=== PATIENT | male | born 1965 | race Caucasian/White ===

== ENCOUNTER → 2019-11-27 11:09 | Outpatient (BNVA) | payer MEDICAID, SELFPAY | PROVIDERS: Family Provider Nurse Practitioner Family; PCP Nurse Practitioner Family; Visit Provider Nurse Practitioner Family | DX: E11.65 Type 2 diabetes mellitus with hyperglycemia (principal); E78.2 Mixed hyperlipidemia; I10 Essential (primary) hypertension; E11.40 Type 2 diabetes mellitus with diabetic neuropathy, unspecified | CPT/HCPCS: 80061; 80069; 82044; 83036 ==

== ENCOUNTER 2019-12-19 10:49 | Outpatient (CLI) | payer OTHER, SELFPAY ==
--- NOTE | 2019-12-19 11:01 | XR_ITS ---
WS: [id number] LUMBAR SPINE: 3 VIEWS TECHNIQUE: AP, lateral and L5-S1 spot. HISTORY: BACK PAIN COMPARISON: 09/01/2016 Normal posterior alignment. Bridging anterior osteophytes at the thoracolumbar junction. Additional i ncomplete bridging of osteophytes in the lower lumbar spine with facet arthropathy. No fracture. Pedi cles are all identified. No loss of disc space or vertebral body height. Mild bilateral SI joint sclerosis and narrowing. XR/XR lumbar spine 2-3V* [id number] IMPRESSION: 1. No lumbar spine fracture. 2. Multilevel bridging an incomplete bridging osteophytes in the lower thoraci c and lumbar spine as above. 3. Facet joint arthropathy most significant at L4-5 and L5-S1. 4. Mild progression of degenerative changes since 09/01/2016.
== END 2019-12-19 10:50 | disposition home or self-care (01) ==
LOC: RAD 10:55
PROVIDERS: Family Provider Nurse Practitioner Family; PCP Nurse Practitioner Family; Visit Provider Dermatology
DX: Z02.71 Encounter for disability determination (principal); M47.896 Other spondylosis, lumbar region; M25.78 Osteophyte, vertebrae
CPT/HCPCS: 72100

== ENCOUNTER → 2020-05-27 11:11 | Outpatient (BNVA) | payer MEDICAID, SELFPAY | PROVIDERS: Family Provider Nurse Practitioner Family; PCP Nurse Practitioner Family; Visit Provider Nurse Practitioner Family | DX: I10 Essential (primary) hypertension (principal); E11.40 Type 2 diabetes mellitus with diabetic neuropathy, unspecified; E78.2 Mixed hyperlipidemia; E11.65 Type 2 diabetes mellitus with hyperglycemia | CPT/HCPCS: 80053; 80061; 82043; 83036 ==

== ENCOUNTER → 2020-10-01 11:21 | Outpatient (BNVA) | payer MEDICAID, SELFPAY | PROVIDERS: Family Provider Nurse Practitioner Family; PCP Nurse Practitioner Family; Visit Provider Nurse Practitioner Family | DX: E78.2 Mixed hyperlipidemia (principal); I10 Essential (primary) hypertension; E11.65 Type 2 diabetes mellitus with hyperglycemia; E11.40 Type 2 diabetes mellitus with diabetic neuropathy, unspecified | CPT/HCPCS: 80053; 80061; 83036 ==

== ENCOUNTER 2020-10-06 11:56 | Outpatient (CLI) | payer MEDICAID, SELFPAY ==
[2020-10-06 12:55] LABS: Albumin Level 4.2 g/dL (3.5-5.2); Anion Gap 16.2 (5-19); Blood Urea Nitrogen 9 mg/dL (6-20); Calcium 9.6 mg/dL (8.5-10.5); Carbon Dioxide 26 mmol/L (22-29); Chloride 99 mmol/L (98-107); Glucose 271 mg/dL (65-115); Potassium 4.2 mmol/L (3.5-5.1); Sodium 137 mmol/L (136-145)
[2020-10-06 13:41] LABS: Creatinine Urine, Random 94 mg/dL (39-259); Microalbumin Random Urine 34 ug/dL (0-20)
[2020-10-06 13:52] LABS: Microalbum Creatinine Ratio Ur 362 mg/dL (0-20)
== END 2020-10-06 11:57 | disposition home or self-care (01) ==
PROVIDERS: PCP Nurse Practitioner Family; Visit Provider Internal Medicine Nephrology
DX: N18.2 Chronic kidney disease, stage 2 (mild) (principal)
CPT/HCPCS: 36415; 80069; 82044

== ENCOUNTER → 2020-10-13 14:10 | Outpatient (BNVA) | payer MEDICAID, SELFPAY | PROVIDERS: PCP Nurse Practitioner Family; Visit Provider Nurse Practitioner Family | DX: F32.9 Major depressive disorder, single episode, unspecified (principal); E11.65 Type 2 diabetes mellitus with hyperglycemia | CPT/HCPCS: 36416; 82962 ==

== ENCOUNTER 2020-12-16 13:43 | Outpatient (CLI) | payer MEDICAID, SELFPAY ==
--- NOTE | 2020-12-16 13:50 | XR_ITS ---
WS: [id number] Exam: XR shoulder RT min 2V* [id number] Date/Time of Exam: 12/16/2020 1:50 PM Reason For Exam: M25.511 - Pain in right shoulder No acute fracture or dislocation. Soft tissue calcification along the humeral head may indicate calci fic tendinitis or bursitis. DJD at the AC joint. XR/XR shoulder RT min 2V* [id number] IMPRESSION: 1. Degenerative changes of the glenohumeral joint and the AC joint. No fracture . 2. Soft tissue calcification along the humeral head that might be seen with nathaly cific tendinitis or bursitis.
== END 2020-12-16 13:44 | disposition home or self-care (01) ==
LOC: RAD 13:44
PROVIDERS: PCP Nurse Practitioner Family; Visit Provider Nurse Practitioner Family
DX: M25.511 Pain in right shoulder (principal)
CPT/HCPCS: 73030

== ENCOUNTER → 2021-01-07 11:08 | Outpatient (BNVA) | payer MEDICAID, SELFPAY | PROVIDERS: PCP Nurse Practitioner Family; Visit Provider Nurse Practitioner Family | DX: E11.65 Type 2 diabetes mellitus with hyperglycemia (principal); Z79.899 Other long term (current) drug therapy; E78.2 Mixed hyperlipidemia; I10 Essential (primary) hypertension | CPT/HCPCS: 80053; 80061; 83036 ==

== ENCOUNTER 2021-01-16 06:49 | Outpatient (CLI) | payer MEDICAID, SELFPAY ==
--- NOTE | 2021-01-16 07:15 | MR_ITS ---
WS: [id number] MRI RIGHT SHOULDER HISTORY: M25.511 - Pain in right shoulder COMPARISON: Shoulder radiograph 12/16/2020 TECHNIQUE: Multiplanar sequences of the shoulder joint are submitted. Moderate to severe hypertrophy of the AC joint. Soft tissue and bony encroachment upon the supraspina tus tendon and muscle. Deformity and edema within the supraspinatus muscle secondary to the encroachm ent. Erosions involving the distal clavicle and adjacent acromion. No os acromion. Increased T2 signa l in the biceps tendon at the bicipital groove consistent with a tear. There is no displacement. Mildly high riding humeral head. Mild narrowing of the glenohumeral joint with partial loss of the ca rtilage over the humeral head. Insertion site tear of the distal supraspinatus tendon measures 9 mm through the inferior articular s urface.. Tear is closely associated with the interdigitation between the infraspinatus tendon and may overlap between the tendons. No muscle atrophy or edema. No additional tears are identified. Small a mount of fluid in the subacromial subdeltoid bursa. No labral tears. There is a very small amount of fluid in the rotator cuff interval MR/MR shoulder RT wo con* [id number] IMPRESSION: 1. Moderate to severe AC joint arthritis with significant encroachment upon th e supraspinatus tendon and muscle. There is increased edema with deformity of t he supraspinatus muscle and tendon at the level of the glenoid. 2. Moderate insertion site tear supraspinatus tendon which may overlap with th e infraspinatus tendon. No tendon retraction or muscle atrophy. 3. Small amount of fluid in the rotator cuff interval. 4. Minimal biceps tendon tear of the bicipital groove.
== END 2021-01-16 06:50 | disposition home or self-care (01) ==
LOC: RADSHAW 06:53
PROVIDERS: PCP Nurse Practitioner Family; Visit Provider Nurse Practitioner Family
DX: M25.511 Pain in right shoulder (principal); M75.101 Unspecified rotator cuff tear or rupture of right shoulder, not specified as traumatic; M13.811 Other specified arthritis, right shoulder
CPT/HCPCS: 73221

== ENCOUNTER → 2021-05-25 10:56 | Outpatient (BNVA) | payer MEDICAID, SELFPAY | PROVIDERS: PCP Nurse Practitioner Family; Visit Provider Nurse Practitioner Family | DX: E11.65 Type 2 diabetes mellitus with hyperglycemia (principal); I10 Essential (primary) hypertension; E78.2 Mixed hyperlipidemia | CPT/HCPCS: 80053; 80061; 82043; 82550; 83036; 83721 ==

== ENCOUNTER → 2022-01-20 13:29 | Outpatient (BNVA) | payer MEDICAID, SELFPAY | PROVIDERS: PCP Nurse Practitioner Family; Visit Provider Internal Medicine Pulmonary Disease | DX: J18.9 Pneumonia, unspecified organism (principal); R06.09 Other forms of dyspnea; R42 Dizziness and giddiness; U09.9 Post COVID-19 condition, unspecified; Z87.891 Personal history of nicotine dependence; I10 Essential (primary) hypertension; E78.5 Hyperlipidemia, unspecified | CPT/HCPCS: 99204 ==

== ENCOUNTER → 2022-01-25 14:09 | Outpatient (BNVA) | payer MEDICAID, SELFPAY | PROVIDERS: PCP Nurse Practitioner Family; Visit Provider Internal Medicine Cardiovascular Disease | DX: R42 Dizziness and giddiness (principal); R06.02 Shortness of breath; R00.0 Tachycardia, unspecified | CPT/HCPCS: 93246 ==

== ENCOUNTER 2022-01-25 14:59 | Outpatient (CLI) | payer MEDICAID, SELFPAY ==
--- NOTE | 2022-01-25 15:20 | XR_ITS ---
WS: [id number] XR chest 2V* [id number] REASON FOR EXAM: PNEUMONIA FINDINGS: Compared to the previous examination to 2021, the coarse reticular interstitial lung opacities torin ng the periphery of both lung singh have essentially resolved. No new findings or other interval change noted. XR/XR chest 2V* [id number] IMPRESSION: Resolution of previously radiographically defined pneumonitis.
== END 2022-01-25 15:00 | disposition home or self-care (01) ==
PROVIDERS: Referring Provider Internal Medicine Cardiovascular Disease; Visit Provider Internal Medicine Pulmonary Disease
DX: J18.9 Pneumonia, unspecified organism (principal)
CPT/HCPCS: 36415; 71046; 80053; 85025

== ENCOUNTER 2022-02-01 13:17 | Observation (INO) | payer MEDICAID, SELFPAY ==
[2022-02-01] VITALS (8 sets, daily range): BP systolic 148–181; BP diastolic 90–118; PULSE 69–83; RESP 14–20; TEMP 36.6; O2SAT 94–96; BMI 34.4
--- NOTE | 2022-02-01 13:18 | XRR_ITS ---
PROCEDURE INFORMATION: Exam: XR Chest Exam date and time: 02/01/2022 1:47 PM Age: 57 years old Clinical indication: Angina pectoris; Patient HX: Chest pain for quite some time. PT was unable to tell me how long this episode has been. HX of copd TECHNIQUE: Imaging protocol: XR of the chest. Views: 1 view. COMPARISON: CR XR chest 2V* [id number] 01/25/2022 3:41 PM FINDINGS: Lungs: Unremarkable. No consolidation. Pleural spaces: Unremarkable. No pleural effusion. No pneumothorax. Heart/Mediastinum: Unremarkable. No cardiomegaly. Bones/joints: Unremarkable. XR/XR chest 1V portable [id number] IMPRESSION: No acute findings.
--- NOTE | 2022-02-01 13:19 | ECG_ITS ---
[facility] Test Date: 2022-02-01 Pat Name: Tab Duke Department: Room: Gender: Male Transmitter Chief: : 1965 Requested By: Raine Chester Order Number: [id number] Ashley MD: Lj Yao M.D. Measurements Intervals [place] Rate: 82 P: 75 NV: 180 QRS: 54 QRSD: 100 T: 78 QT: 359 QTc: 422 Interpretive Statements SINUS RHYTHM Compared to ECG 12/28/2018 12:30:36 No significant changes Electronically Signed On 02-01-2022 22:59:32 CDT by Lj Yao M.D. [email or web address]/store/Om/[id number]
--- NOTE | 2022-02-01 13:36 | W.ED.GENADLT ---
HPI - General Adult General: Chief complaint: Chest Pain Stated complaint: dizziness / chest pain Time Seen by Provider: 02/01/22 13:31 History of Present Illness: CC: Chest Pain HPI: This is a [57] yo patient hx of HTN, DM, smoking presenting to the ED w/ acute onset intermittent substernal chest pain x 9 hrs at home. He reports around 430 this morning, he began experiencing dull pressure-like chest pain with associated with diaphoresis. Patient states this episode of chest pain last for 10 to 15 minutes. Patient still complains of pressure-like chest pain with radiation to the left lateral rib. pain is not tearing in nature and does not radiate to the back. Endorse nausea but has no associated with vomiting or decreased PO intake. Denies any recent sympathomimetic drug use. Patient denies any cough. Denies palpitations, syncope symptoms. Pain not positional. Norecent immobility, surgery, unilateral leg swelling, or prior PE. Patient denies any orthopnea, paroxysmal nocturnal dyspnea, weight gain, or increased leg swellings. Onset: 9 hrs ago Duration: ongoing for the last 9 hours Location: home Severity: moderate Associated symptoms: Reports chest pain; Deny dyspnea, nausea, rash, palpitations or vomiting Review of Systems Const: Denies: fever(s) or chills Eyes: Denies: change in vision ENMT: Denies: mouth pain Card: Reports: chest pain; Denies: palpitations Resp: Denies: dyspnea or non-productive cough GI: Denies: abdominal pain, nausea, vomiting or diarrhea : Denies: dysuria Musc: Denies: extremity pain Skin/Breast: Denies: rash or new lesions Neuro: Denies: weakness in extremities Psych: Reports: other (Normal mood) Americo/Lymph: Denies: easy bruising PFSH ED PFSH: Medical History Depression DM neuropathy, painful DM w/o complication type II, uncontrolled HTN (hypertension), benign Hyperlipemia, mixed Psychiatric care Social History Smoking and tobacco status: former smoker Quit status (tobacco): has quit using tobacco Year quit tobacco: Former quit date comment: 1ppd x 2 years Physical Exam Const: COMMON NORMALS: alert HENMT: COMMON NORMALS: atraumatic HEAD & SCALP: atraumatic MOUTH: moist mucous membranes not abnormal Eye: COMMON NORMALS: EOMs intact bilaterally and conjunctivae normal CONJUNCTIVA: Yes conjunctivae normal Neck/C-Spine: COMMON NORMALS: full ROM and supple Resp: COMMON NORMALS: normal respiratory effort and clear to auscultation bilaterally AUSCULTATION: clear to auscultation bilaterally Cardio: COMMON NORMALS: regular rate RATE: regular rate OTHER: 2+ radial pulses b/l GI: COMMON NORMALS: Soft to palpation and non-tender PALPATION: Yes Soft to palpation Extremity: COMMON NORMALS: full ROM Neuro: SENSORIUM/ORIENTATION: Yes alert MOTOR EXAM: No Abnormal motor strength present and Other motor observations present (no focal motor deficits) Psych: COMMON NORMALS: speech normal SPEECH: Yes normal speech MOOD & AFFECT: Yes euthymic mood Course Vital Signs: Vital signs: Vital Signs Temperature 97.8 F 02/01/22 13:23 Pulse Rate 81 02/01/22 14:17 Respiratory Rate 14 02/01/22 14:17 Blood Pressure 164/104 02/01/22 14:17 Pulse Oximetry 96 02/01/22 14:17 MDM - General Adult Medical Decision Making [57]yo patient w/ hx of DM, HTN, smoking presenting to the ED With acute substernal chest pain X 9 hrs. Currently mild chest pain. Given History And Exam today I have moderate to high suspicion for ACS/UA/NSTEMI. Today, I have NO suspicion for pneumothorax, pneumonia, pulmonary embolus, tamponade, aortic dissection or other emergent problem as a cause for this presentation. ECG did not show any signs of acute STEMI. Workup: ECG x 2 , CXR, CBC, BMP, Troponin x 2 Intervention: ASA 325mg, SL nitroglycerin, morphine Findings: ECG: No overt evidence of STEMI, nohyperacute T waves, localizable STD or T wave inversions. No evidence of Brugada?s sign, delta wave, epsilon wave, significantly prolonged QTc, or malignant arrhythmia. No Q waves. Troponin: 25 Other Labs unremarkable for emergent problems. CXR: Without PTX, PNA, or widened mediastinum HEART score: 5 Dimer wml [3:30pm] On reassessment, the patient is currently chest pain free. S/p aspirin 325mg. Will defer antiplatelet and anticoagulation to the inpatient team. Pending repeat troponin. HDS, AAOx3, no signs of respiratory distress, without refractory chest pain, no signs of malignant dysrhythmia on alarm security or surveillance monitor (VT/VF). Disposition: Inpatient admission. Lab Data : 02/01/22 14:00 02/01/22 14:00 Radiology Impressions Chest X-Ray 02/01/22 13:18 IMPRESSION: No acute findings. Laboratory Results WBC 8.3 10^3/uL (4.0-10.0) 02/01/22 14:00 RBC 4.78 10^6/uL (4.1-5.3) 02/01/22 14:00 Hgb 13.8 g/dL (11.7-16.6) 02/01/22 14:00 Hct 41.5 % (42.0-52.0) L 02/01/22 14:00 MCV 86.8 fl (80-94) 02/01/22 14:00 MCH 28.9 pg (28.0-34.0) 02/01/22 14:00 MCHC 33.3 g/dL (30.0-36.0) 02/01/22 14:00 RDW 13.4 % (12.1-15.1) 02/01/22 14:00 Plt Count 224 10^3/cmm (130-400) 02/01/22 14:00 MPV 10.6 fL (7.4-10.4) H 02/01/22 14:00 Neut % (Auto) 60.5 % 02/01/22 14:00 Lymph % (Auto) 30.3 % 02/01/22 14:00 [place] % (Auto) 7.6 % 02/01/22 14:00 Eos % (Auto) 1.0 % 02/01/22 14:00 Baso % (Auto) 0.4 % 02/01/22 14:00 Neut # (Auto) 5.00 10^3/uL (1.8-7.7) 02/01/22 14:00 Lymph # (Auto) 2.5 10^3/uL (0.8-4.8) 02/01/22 14:00 [place] # (Auto) 0.6 10^3/uL (0.2-0.9) 02/01/22 14:00 Eos # (Auto) 0.1 10^3/uL (0.0-0.8) 02/01/22 14:00 Baso # (Auto) 0.0 10^3/uL (0.0-0.1) 02/01/22 14:00 Nucleated RBC % (auto) 0 % 02/01/22 14:00 Nucleated RBCs # 0.0 /100WBC 02/01/22 14:00 D-Dimer 0.31 ug/mIFEU (0-0.59) 02/01/22 14:00 Sodium 137 mmol/L (136-145) 02/01/22 14:00 Potassium 3.7 mmol/L (3.5-5.1) 02/01/22 14:00 Chloride 99 mmol/L (98-107) 02/01/22 14:00 Carbon Dioxide 26 mmol/L (22-29) 02/01/22 14:00 Anion Gap 15.7 (5-19) 02/01/22 14:00 BUN 14 mg/dL (6-20) 02/01/22 14:00 Creatinine 0.7 mg/dL (0.7-1.2) 02/01/22 14:00 GFR Calculation 117.1 mL/min (90-130) 02/01/22 14:00 Glucose 266 mg/dL (65-115) H 02/01/22 14:00 Calculated Osmolality 294 mOsm/kg (285-295) 02/01/22 14:00 Calcium 9.9 mg/dL (8.5-10.5) 02/01/22 14:00 Troponin T Baseline 24 ng/L (0-15) H 02/01/22 14:00 Imaging Data Other Imaging: Radiologist's impression: [facility] [address] [place] [address] XRay Report Signed Patient: Tab Duke Unit #: [id number] : 1965 Age/Sex: 57 / M ADM Date: 02/01/22 Loc: ER Room/Bed: Attending Dr: Ordering Provider/Ordering MD: Raine Chester MD Date of Service: 02/01/22 Procedure(s): XR chest 1V portable [id number] Accession Number(s): [id number] Report Number: [id number] PROCEDURE INFORMATION: Exam: XR Chest Exam date and time: 02/01/2022 1:47 PM Age: 57 years old Clinical indication: Angina pectoris; Patient HX: Chest pain for quite some time. PT was unable to tell me how long this episode has been. HX of copd TECHNIQUE: Imaging protocol: XR of the chest. Views: 1 view. COMPARISON: CR XR chest 2V* [id number] 01/25/2022 3:41 PM FINDINGS: Lungs: Unremarkable. No consolidation. Pleural spaces: Unremarkable. No pleural effusion. No pneumothorax. Heart/Mediastinum: Unremarkable. No cardiomegaly. Bones/joints: Unremarkable. XR/XR chest 1V portable [id number] IMPRESSION: No acute findings. ? Dictated By: Varghese Woodruff Signed By: Varghese Woodruff Signed Date/Time: 02/01/22 1409 DD/ 1347 Discharge Plan Discharge Condition: Stable Prescriptions: No Action (DME) pen needle, diabetic [Comfort EZ Pen [place]] 29 gauge x 1/2 needle See Rx Instructions .Route Qty: 100 1RF Rx Instructions: As directed albuterol sulfate [ProAir HFA] 90 mcg/actuation HFA aerosol inhaler 2 puff inhalation Q6H PRN (Reason: shortness of breath or wheezing) Qty: 6.7 0RF metformin 500 mg tablet 500 mg PO DAILY@12 0RF glipizide 5 mg tablet extended release 24 hr 5 mg PO QAM 0RF gabapentin 800 mg tablet 800 mg PO BID 0RF amlodipine 10 mg tablet 10 mg PO QAM 0RF metformin 1,000 mg tablet 1,000 mg PO BID 0RF Rx Instructions: am and pm lisinopril 40 mg tablet 40 mg PO QAM 0RF Lantus Solostar U-100 Insulin 100 unit/mL (3 mL) insulin pen 40 unit SUBCUT BEDTIME 0RF simvastatin 20 mg tablet 20 mg PO BEDTIME 0RF ropinirole 4 mg tablet 8 mg PO BEDTIME 0RF quetiapine 50 mg tablet 50 mg PO BEDTIME 0RF venlafaxine 75 mg capsule,extended release 24hr 75 mg PO BEDTIME 0RF metoprolol tartrate 100 mg tablet 100 mg PO QAM 0RF Victoza 2-Matthew 0.6 mg/0.1 mL (18 mg/3 mL) pen injector 1.2 mg SUBCUT BEDTIME 0RF Coding Level of Care Code ED Director Of Primary Care for Chg Fwd Exam Comprehensive
[2022-02-01] MEDS: aspirin 325 mg Tablet PO (14:15)
[2022-02-01 14:17] LABS: Basophils % 0.4 %; Eosinophils # 0.1 10^3/uL (0.0-0.8); Hematocrit 41.5 % (42.0-52.0); Hemoglobin 13.8 g/dL (11.7-16.6); Lymphocytes # 2.5 10^3/uL (0.8-4.8); Lymphocytes % 30.3 %; Mean Corpuscular HGB Conc 33.3 g/dL (30.0-36.0); Mean Corpuscular Hemoglobin 28.9 pg (28.0-34.0); Mean Corpuscular Volume 86.8 fl (80-94); Mean Platelet Volume 10.6 fL (7.4-10.4); Monocytes # 0.6 10^3/uL (0.2-0.9); Monocytes % 7.6 %; Neutrophils % 60.5 %; Nucleated Red Blood Cells % 0 %; Platelet Count 224 10^3/cmm (130-400); Red Blood Count 4.78 10^6/uL (4.1-5.3); Red Cell Distribution Width 13.4 % (12.1-15.1); White Blood Count 8.3 10^3/uL (4.0-10.0)
[2022-02-01 14:35] LABS: D Dimer 0.31 ug/mIFEU (0-0.59)
[2022-02-01 14:45] LABS: Troponin(5th) Baseline 24 ng/L (0-15)
[2022-02-01 14:48] LABS: Anion Gap 15.7 (5-19); Blood Urea Nitrogen 14 mg/dL (6-20); Calcium 9.9 mg/dL (8.5-10.5); Carbon Dioxide 26 mmol/L (22-29); Chloride 99 mmol/L (98-107); Glomerular Filtration Rate 117.1 mL/min (90-130); Glucose 266 mg/dL (65-115); Osmolality Calculated 294 mOsm/kg (285-295); Potassium 3.7 mmol/L (3.5-5.1); Sodium 137 mmol/L (136-145)
--- NOTE | 2022-02-01 15:19 | ECG_ITS ---
[facility] Test Date: 2022-02-01 Pat Name: Tab Duke Department: Room: Gender: Male Window Framer: : 1965 Requested By: Raine Chester Order Number: [id number] Ashley MD: Lj Yao M.D. Measurements Intervals [place] Rate: 67 P: 71 [place]: 216 QRS: 46 QRSD: 93 T: 89 QT: 392 QTc: 415 Interpretive Statements SINUS RHYTHM WITH FIRST DEGREE AV BLOCK Compared to ECG 02/01/2022 13:27:25 First degree AV block now present Electronically Signed On 02-01-2022 23:21:06 CDT by Lj Yao M.D. [email or web address]/store/OM/[id number]
--- NOTE | 2022-02-01 15:40 | PC.NURSE ---
Pulled morphine from [employer] and wasted. Prior to administration, pt refused medication. Reported to Rashel in pharmacy. Rashel instructed to wasted other half of vial in [employer]. Full vial returned to Rashel in pharmacy.
--- NOTE | 2022-02-01 16:47 | PC.NURSE ---
Pt was rx's morphine. Morphine was wasted in pyxis before administration. Pt then refused morphine. Remaining 2mg were wasted in pyxis per Rashel. Full vial was returned to pharmacy and given to Rashel.
[2022-02-01 16:56] LABS: Troponin 5 2HR 20.85 ng/L (0-15)
[2022-02-01 17:02] LABS: Troponin 5 2HR Delta -3.15 ABS# (0-10)
--- NOTE | 2022-02-01 17:16 | P.HP_ITS ---
Providers/Chief Complaint Admitting Physician: Kalin Ceja Chief Complaint: dizziness / chest pain History of Present Illness Pleasant 57-year-old gentleman with postcode chronic dyspnea, CARL, has been intolerant of CPAP, uses chronic oxygen 1 L around the clock, with intermittent episodes of blackouts , with reported history of skipped beats, was referred for 7-day Holter by pulmonology additionally with plans for PFT, CT chest, cardiology assessment. Presents to ER today due to chest tightness. Reports he has been having dry cough. This morning reports he also had chills and sweats. Occasional sharp pain on the left side of the chest with tightness mostly in the center. Sharp chest pain with some pleuritic component, worse with deep breaths. Some pleuritic worsening with tightness as well. Reports not related to activity, could appear when he is sitting down. Reports dyspnea on exertion. Denies orthopnea, although does not sleep on his back due to back problems. Denies productive cough or hemoptysis. His blood pressure has been elevated. Currently he has no sharp pain, some mild tightness persists. His EKG was unremarkable in ER, as was first troponin with mild elevation 24. 2-hour troponin coming back at 20.85. Chest x-ray without acute findings. D-dimer 0.31. He is afebrile, without leukocytosis. NB he also reports Raynaud's-like symptoms with his hands turning pale or feet purple when exposed to cold. Review of Systems Const: Denies: fever(s), chills, body aches or malaise Eyes: Denies: change in vision, eye discomfort or eye redness ENMT: Denies: throat pain, oral sores or ear or mastoid pain Card: Reports: chest pain and edema (mild occasional); Denies: pre-syncope or dyspnea on exertion Resp: Reports: non-productive cough and pain on inspiration; Denies: dyspnea, productive cough, change in phlegm color or hemoptysis GI: Denies: abdominal pain, nausea, vomiting, diarrhea, constipation, hematochezia or melena : Denies: flank pain, difficulty urinating, urinary frequency or hematuria Musc: Reports: back pain; Denies: joint swelling or joint redness Skin/Breast: Denies: rash or new lesions Neuro: Denies: headache(s), numbness in extremities, weakness in extremities, dizziness, confusion or seizure-like activity Endo: Denies: polyuria or polydipsia Americo/Lymph: Denies: easy bleeding or tender lymph nodes All/Imm: Denies: urticaria or tongue swelling Medications/Allergies Home Medications Medication Instructions Recorded Confirmed Last Taken Type albuterol sulfate 90 mcg/actuation 2 puff INHALATION Q6H PRN #6.7 g 05/25/21 02/01/22 Unknown Rx aerosol inhaler (ProAir HFA) pen needle, diabetic 29 gauge x #100 ea 05/25/21 02/01/22 Unknown Rx 1/2 (Comfort EZ Pen [place]) amlodipine 10 mg tablet 10 mg PO QAM 02/01/22 02/01/22 02/01/22 11:30 History gabapentin 800 mg tablet 800 mg PO BID 02/01/22 02/01/22 02/01/22 11:30 History glipizide 5 mg tablet, extended 5 mg PO QAM 02/01/22 02/01/22 02/01/22 11:30 History release 24 hr insulin glargine 100 unit/mL (3 40 unit SUBCUT BEDTIME 02/01/22 02/01/22 01/31/22 History mL) subcutaneous pen (Lantus Solostar U-100 Insulin) liraglutide 0.6 mg/0.1 mL (18 mg/3 1.2 mg SUBCUT BEDTIME 02/01/22 02/01/22 01/31/22 History mL) subcutaneous pen injector ([id number] 2-Matthew) lisinopril 40 mg tablet 40 mg PO QAM 02/01/22 02/01/22 02/01/22 11:30 History metformin 1,000 mg tablet 1,000 mg PO BID 02/01/22 02/01/22 02/01/22 History 1000 mg metformin 500 mg tablet 500 mg PO DAILY@12 02/01/22 02/01/22 01/31/22 History metoprolol tartrate 100 mg tablet 100 mg PO QAM 02/01/22 02/01/22 02/01/22 History quetiapine 50 mg tablet 50 mg PO BEDTIME 02/01/22 02/01/22 01/31/22 History ropinirole 4 mg tablet 8 mg PO BEDTIME 02/01/22 02/01/2201/31/22 History simvastatin 20 mg tablet 20 mg PO BEDTIME 02/01/22 02/01/22 01/31/22 History venlafaxine 75 mg capsule,extended 75 mg PO BEDTIME 02/01/22 02/01/22 01/31/22 History release 24 hr Allergies Allergy/AdvReac Type Severity Reaction Status Date / Time Penicillins Allergy Mild breaks out Verified 02/01/22 14:30 in rash PFSH Acute PFSH: Medical History Depression DM neuropathy, painful DM w/o complication type II, uncontrolled HTN (hypertension), benign Hyperlipemia, mixed Lupus He reports history of lupus diagnosed by Dr. Cortes, though there is no record of this. Psychiatric care Surgical History History of back surgery Family History Other Lupus Social History Smoking and tobacco status: former smoker Quit status (tobacco): has quit using tobacco Year quit tobacco: Former quit date comment: 1ppd x 2 years Alcohol intake: never Substance/Drug Use: never Vitals/I&O/Wt Last Vital Signs Temp 97.8 F 02/01/22 13:23 Pulse 75 02/01/22 16:49 Resp 16 02/01/22 16:49 BP 151/111 02/01/22 16:49 Pulse Ox 96 02/01/22 16:49 Weight last 48 hrs Weight 99.79 kg Physical Exam Narrative: Accompanied by family. Const: COMMON NORMALS: alert GENERAL APPEARANCE: cooperative NUTRITIONAL APPEARANCE: overweight ORIENTATION/CONSCIOUSNESS: Yes awake HENMT: COMMON NORMALS: normocephalic, EAC's normal, Normal external nose present and moist oral mucous membranes HEAD & SCALP: normocephalic NOSE: Normal external nose present EXTERNAL AUDITORY CANAL: EAC's normal Neck/C-Spine: COMMON NORMALS: no meningeal signs Chest: CHEST: Yes Symmetrical chest wall rise Resp: COMMON NORMALS: clear to auscultation bilaterally AUSCULTATION: clear to auscultation bilaterally Cardio: COMMON NORMALS: regular rate, regular rhythm and No murmurs present (Cardio) RATE: regular rate RHYTHM: regular rhythm GI: COMMON NORMALS: Normal to inspection, nondistended, normoactive bowel so unds present, Soft to palpation and non-tender PALPATION: Yes Soft to pal pation Extremity: COMMON NORMALS: no pedal edema Neuro: COMMON NORMALS: moves all extremities SENSORIUM/ORIENTATION: Yes alert MENINGEAL SIGNS: Yes no meningeal signs Psych: COMMON NORMALS: mental status grossly normal Skin: COMMON NORMALS: no wounds RASHES: no rashes Data : 02/01/22 14:00 02/01/22 14:00 A&P Assessment and plan (1) Chest tightness: Currently still some persistent mild chest tightness in the center, which is a different symptom he describes to the sharper intermittent lasting only couple seconds pain on the left side of his chest, although does state both exacerbated by deep breath. With dry cough. Denies hemoptysis. D-dimer is normal. For his troponin mildly elevated 24, 2-hour troponin XX. Complete troponin EKG trend. He does have risk factors for coronary artery disease. We will additionally assess with echocardiogram. Discussed with him if no worsening of symptoms would then plan for additional a ssessment by stress test tomorrow. Continue ASA, beta-tre, statin. Status: Acute (2) Nonproductive cough: Possibly persistent after Covid, although reports has been coughing more recently. No focal consolidation seen on chest x-ray to suggest bacterial pneumonia. Reports chills, sweats this morning, will obtain COVID-19, influenza swabs. He has no leukocytosis, here afebrile. Monitor vitals. D-dimer is normal. Status: Acute (3) Raynaud's phenomenon: Reports intermittent Raynaud's phenomena. States he was previously diagnosed with lupus by Dr. Cortes, although there is no record of this. Status: Acute (4) HTN (hypertension), benign: Possibly suboptimally controlled hypertension. Monitor blood pressures. Continue amlodipine, lisinopril, metoprolol for now. Status: Acute Plan CARL: Reports intolerant of CPAP. Discussed with him pursuing adjustment of his CPAP machine to see if can be made to tolerated. He states otherwise wears oxygen 1 L 24 hours a day. Protracted dyspnea following Covid: He follows with pulmonology, pending additional assessment. Episodes of blacking out : Reported previously. Underwent 7-day Holter monitor which appears to be pending interpretation. DM2: Continue Lantus, sliding scale while here Consistent carbohydrate diet. Chronic back pain, history of spinal tumor resection HLD Depression Attestations Medical Necessity Statement*: Place in observation for additional assessment of chest pressure and a gentleman with risk factors of CAD Coding Level of Care Code Acute Airport Duty Manager for Chg Fwd Diagnoses Chest tightness R07.89 Nonproductive cough R05.8 Raynaud's phenomenon I73.00 HTN (hypertension), benign I10
--- NOTE | 2022-02-01 17:22 | PC.NURSE ---
Pt was up for discharge. Physician wanted abx before pt was allowed to leave. Physician then ordered 2 more medications, while pt was up for discharge. Nurse administered rx'd medications and discharged pt when complete.
--- NOTE | 2022-02-01 17:50 | USCV_ITS ---
Tab Duke Age: 57 Gender: M : 1965 Exam Date: 02/01/2022 18:56 Ordering Phys: Kalin Ceja MD Technologist: GEE [place] [facility] [place]: Tightness in chest/ Syncope BP: / HR: 74 Rhythm: Sinus Technical Quality: Adequate MEASUREMENTS (Male / Female) Normal Values 2D ECHO LV Diastolic Diameter PLAX 4.0 cm 4.2 - 5.9 / 3.9 - 5.3 cm LV Systolic Diameter PLAX 2.4 cm IVS Diastolic Thickness 1.4 cm 0.6 - 1.0 / 0.6 - 0.9 cm IVS Systolic Thickness 2.5 cm LVPW Diastolic Thickness 2.3 cm 0.6 - 1.0 / 0.6 - 0.9 cm LVPW Systolic Thickness 2.9 cm LVOT Diameter 3.1 cm LV Ejection Fraction 2D Teich 61.9 % LV Ejection Fraction MOD 2C 66.3 % LV Ejection Fraction 2C AL 66.0 % LA Diameter 3.7 cm LA Width 3.7 cm LA Height 6.6 cm RA Width 3.6 cm RA Height 5.7 cm Aorta at Sinotubular Diameter 2.4 cm M-MODE Aortic Annulus Diameter 3.1 cm LA Ao Ratio MM 1.4 MV E Point Septal Separation 1.0 cm DOPPLER AV Peak Velocity 126.5 cm/s LVOT Peak Velocity 54.0 cm/s AV Area Cont Eq vti 4.1 cm squared AV Area Cont Eq pk 3.3 cm squared MV Peak Velocity 80.0 cm/s MV Area PHT 3.3 cm squared Mitral E to A Ratio 0.8 MV E' Velocity 31.5 cm/s Mitral E to MV E' Ratio 6.6 Mitral E to LV E' Lateral Ratio 6.6 Mitral E to LV E' Septal Ratio 6.6 TR Peak Velocity 119.3 cm/s TR Peak Gradient 5.7 mmHg TR Mean Velocity 78.0 cm/s TR Mean Gradient 2.9 mmHg TR Velocity Time Integral 22.7 cm Right Atrial Pressure 10.0 mmHg Pulmonary Artery Systolic Pressu 15.7 mmHg PV Peak Velocity 106.0 cm/s RV Acceleration Time 0.1 s RV Ejection Time 0.4 s RV AcT/ET 0.3 FINDINGS Left Ventricle Normal left ventricular size and systolic function, EF 71 %. No regional wall motion abnormalities. Grade I/IV diastolic dysfunction (abnormal relaxation filling pattern), normal to mildly elevated filling pressures. Right Ventricle The right ventricle is normal in size and function. Right Atrium Possibly of normal size Left Atrium The left atrium is normal in size. Mitral Valve Mild mitral annular calcification. Thickened mitral valve. Aortic Valve No gross abnormalities noted Tricuspid Valve No gross abnormalities noted Pulmonic Valve Pulmonic valve not well visualized. Pericardium No pericardial effusion. Aorta Normal ascending aorta dimension. CONCLUSIONS Normal left ventricular size and systolic function, EF 71 %. No regional wall motion abnormalities. Grade I/IV diastolic dysfunction (abnormal relaxation filling pattern), normal to mildly elevated filling pressures. Mild mitral annular calcification. Thickened mitral valve. There is no pericardial effusion. Technically difficult study because of the poor ultrasonic window. No previous study is available for comparison. Dr Lj Yao MD FACC (Electronically Signed) Final Date: 02 February 2022 15:29 S
--- NOTE | 2022-02-01 18:55 | PC.NURSE ---
Patient arrived to floor via wc, AAOx4, VSS, minimal c/o chest tightness, no c/o pain, no skin concerns. States he uses a cane when is back flares up and his leg hurts. Lives with daughter that can help care for him. No new events, no needs at this time, room clean and clutter free with call light in reach.
--- NOTE | 2022-02-01 19:19 | ECG_ITS ---
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 Measurements Intervals Wallace Rate: 72 P: 56 WY: 209 QRS: 29 QRSD: 97 T: 101 QT: 380 QTc: 418 Interpretive Statements SINUS RHYTHM NONSPECIFIC T-WAVE ABNORMALITY Compared to ECG 02/01/2022 16:38:31 T-wave abnormality now present First degree AV block no longer present Electronically Signed On 02-01-2022 23:21:32 CDT by Lj Yao M.D. [id number]
[2022-02-01] MEDS: enoxaparin 40 mg/0.4 mL Syringe SUBCUT (19:32)
[2022-02-01 20:25] LABS: Troponin 5 6HR 22.62 ng/L (0-15)
[2022-02-01 20:26] LABS: Troponin 5 6HR Delta -1.38 ng/L (0-12)
[2022-02-01] MEDS: quetiapine 25 mg Tablet 50 MG PO (20:37)
[2022-02-01] MEDS: ropinirole 2 mg Tablet 8 MG PO (20:37)
[2022-02-01] MEDS: atorvastatin 40 mg Tablet 20 MG PO (20:37)
[2022-02-01] MEDS: venlafaxine ER (24HR) 75 mg Capsule PO (20:37)
[2022-02-01] MEDS: gabapentin 400 mg Capsule 800 MG PO (20:39)
[2022-02-01] MEDS: insulin lispro 100 unit/1 mL SUBCUT (20:49)
[2022-02-01] MEDS: insulin glargine 100 units/1 mL 40 UNIT SUBCUT (21:14)
[2022-02-02] VITALS (13 sets, daily range): BP systolic 125–166; BP diastolic 70–96; PULSE 72–103; RESP 17–18; TEMP 36.6–37.1; O2SAT 93–98
[2022-02-02 03:55] LABS: Influenza A by IFA Negative (Negative); Influenza B by IFA Negative (Negative)
[2022-02-02 05:19] LABS: Adenovirus Not Detected (NOT DETECT); Chlamydia Pneumoniae Not Detected (NOT DETECT); Coronavirus 229E,HKU1,NL63,OC4 Not Detected (NOT DETECT); Human Metapneumovirus Not Detected (NOT DETECT); Human Rhinovirus/Enterovirus Not Detected (NOT DETECT); Influenza A Not Detected (NOT DETECT); Influenza A H1 Not Detected (NOT DETECT); Influenza A H1-2009 Not Detected (NOT DETECT); Influenza A H3 Not Detected (NOT DETECT); Influenza B Not Detected (NOT DETECT); Mycoplasma Pneumoniae Not Detected (NOT DETECT); Parainfluenza Virus Type 1 Not Detected (NOT DETECT); Parainfluenza Virus Type 2 Not Detected (NOT DETECT); Parainfluenza Virus Type 3 Not Detected (NOT DETECT); Parainfluenza Virus Type 4 Not Detected (NOT DETECT); Respiratory Syncytial Virus A Not Detected (NOT DETECT); Respiratory Syncytial Virus B Not Detected (NOT DETECT); SARS-COV-2 Not Detected (NOT DETECT)
[2022-02-02] MEDS: amlodipine 10 mg Tablet PO (06:01)
[2022-02-02] MEDS: lisinopril 20 mg Tablet 40 MG PO (06:01)
[2022-02-02 06:05] LABS: Basophils % 0.2 %; Eosinophils # 0.1 10^3/uL (0.0-0.8); Eosinophils % 1.1 %; Hematocrit 41.4 % (42.0-52.0); Hemoglobin 13.5 g/dL (11.7-16.6); Lymphocytes # 2.8 10^3/uL (0.8-4.8); Lymphocytes % 26.1 %; Mean Corpuscular HGB Conc 32.6 g/dL (30.0-36.0); Mean Corpuscular Hemoglobin 28.6 pg (28.0-34.0); Mean Corpuscular Volume 87.7 fl (80-94); Mean Platelet Volume 10.6 fL (7.4-10.4); Monocytes # 0.6 10^3/uL (0.2-0.9); Neutrophils # 7.05 10^3/uL (1.8-7.7); Neutrophils % 66.1 %; Nucleated Red Blood Cells % 0 %; Platelet Count 218 10^3/cmm (130-400); Red Blood Count 4.72 10^6/uL (4.1-5.3); Red Cell Distribution Width 13.5 % (12.1-15.1); White Blood Count 10.7 10^3/uL (4.0-10.0)
[2022-02-02 06:25] LABS: Anion Gap 13.9 (5-19); Blood Urea Nitrogen 17 mg/dL (6-20); Calcium 9.4 mg/dL (8.5-10.5); Carbon Dioxide 27 mmol/L (22-29); Chloride 102 mmol/L (98-107); Glomerular Filtration Rate 139.9 mL/min (90-130); Glucose 163 mg/dL (65-115); Osmolality Calculated 293 mOsm/kg (285-295); Potassium 3.9 mmol/L (3.5-5.1); Sodium 139 mmol/L (136-145)
[2022-02-02] MEDS: regadenoson 0.4 Mg/5 ml Syringe IVP (07:44)
[2022-02-02 07:57] LABS: Glucose Point of Care 201 mg/dL (70-110)
[2022-02-02 07:58] LABS: Glucose Point of Care 158 mg/dL (70-110)
--- NOTE | 2022-02-02 08:00 | ECG_ITS ---
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 Interpretive Statements NAME OF STUDY: LEXISCAN SESTAMIBI STRESS TEST INDICATION: [chest discomfort, ] Procedure: At the baseline, the blood pressure was 127/84mmHg with a heart rate of 73 bpm. The electrocardiogram showed normal sinus rhythm, normal axis with normal ST and T's. The Lexiscan was infused over a period of 20 seconds. A total of 0.4 mg of Lexiscan was infused. The stress phase was continued for a total of 5 minutes. Heart rate was at the end of stress phase was 94 bpm and a blood pressure of 134/72 mmHg. The EKG at the peak infusion revealed since normal sinus rhythm with no significant ST-T wave changes. Sestamibi was injected 20 seconds after the Lexiscan infusion. Blood pressure at the end of recovery phase was 125/76 mmHg with a heart rate of 94 bpm. Conclusion: 1. Normal EKG response to Lexiscan infusion 2. No Lexiscan induced chest pain or cardiac arrhythmia. 3. Normal blood pressure and heart rate response. 4. Sestamibi/sestamibi perfusion scan pending; see separate report. Electronically Signed On 03-07-2022 21:13:56 CDT by Jhon Perez M.D. [id number]
[2022-02-02] MEDS: gabapentin 400 mg Capsule 800 MG PO (09:36)
[2022-02-02] MEDS: insulin lispro 100 unit/1 mL SUBCUT ×3 (09:36→18:33)
[2022-02-02] MEDS: aspirin 325 mg Tablet PO (09:36)
[2022-02-02] MEDS: doxycycline 100 mg Tablet PO (11:10)
[2022-02-02] MEDS: ipratropium-albuterol 3 mL Neb INHALATION ×2 (11:28→15:03)
--- NOTE | 2022-02-02 16:58 | PM.CONSULT ---
Providers/Reason For Consult Consulting Physician/Specialty*: DAJA Yao MD/cardiology Reason for Consult*: Patient with chest pain and abnormal perfusion scan Requesting Physician: Dr. Ceja Attending Physician: Kalin Ceja History of Present Illness History of Present Illness Tab Duke is a 57 year old male with multiple risk factors for coronary disease, he is admitted to hospital with a an episode of prolonged chest pain. Myocardial infarction was ruled out. He had a myocardial perfusion imaging today which revealed a small area of myocardial scarring with a possible rosalio-infarction ischemia. Cardiology consult is requested for further cardiac evaluation recommendations. This patient apparently had an episode of chest pain, shortness of breath and profuse sweating which woke him up around 4:00 in the morning on the day of admission. The pain was in the mid substernal area. It radiates to the to the left arm and also to the back. He did not have any associated nausea or vomiting. The intensity of the pain was moderate. The profuse sweating lasted for 45 minutes or so. This is followed by a dull aching type of pain in the chest. For the persistence of this symptom, he was brought to the hospital by his daughter. His chest pain gradually subsided. He had no other associated symptoms or radiation of pain. He has no previous history for coronary artery disease, myocardial infarction or congestive heart failure. He has a history of heart murmur He has a longstanding history of diabetes at least the last 10 years. 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 The first episode of seizures in 2016. Second episode was in 2019 and the last one was in October of this year. Does have residual right upper extremity weakness, some speech disturbance and memory problem. The exact etiology of the stroke is not clear at this time. 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 He also is known to have high blood pressure and dyslipidemia. No history for peripheral artery disease, kidney disease or liver disease. No bleeding disorders. He has a longstanding history of COPD and sleep apnea. He is not able to use a CPAP machine . Denies any smoking abuse. Occasional alcohol intake. His mother had a myocardial infarction in her 60s. No other relevant family history. Review of Systems Narrative: CONSTITUTIONAL: No fever or chills. Has been having some amount of dyspnea on exertion. EYES: No blurring of vision or other visual disturbances lately. [] ENT: No hoarseness of voice, auditory disturbances or sore throat. [] CARDIOVASCULAR: As mentioned above. [] RESPIRATORY: No significant cough. [] GASTROINTESTINAL: No hematemesis or melena. [] GENITOURINARY: No dysuria or hematuria. [] INTEGUMENTARY: No skin rashes or history of skin cancer. [] NEURO: No transient ischemic attacks or amaurosis. [] PSYCHIATRIC: No history of psychosis or major depression. [] HEMATOLOGIC: No bleeding disorders or significant anemia. [] ENDOCRINE: Type 2 diabetes MUSCULOSKELETAL: No recent joint pain or swelling. [] ALLERGY/IMMUNOLOGY: As mentioned above. [] Medications/Allergies Home Medications Medication Instructions Recorded Confirmed Last Taken Type albuterol sulfate 90 mcg/actuation 2 puff INHALATION Q6H PRN #6.7 g 05/25/21 02/01/22 Unknown Rx aerosol inhaler (ProAir HFA) pen needle, diabetic 29 gauge x #100 ea 05/25/21 02/01/22 Unknown Rx 1/2 (Comfort EZ Pen [place]) amlodipine 10 mg tablet 10 mg PO QAM 02/01/22 02/01/22 02/01/22 11:30 History gabapentin 800 mg tablet 800 mg PO BID 02/01/22 02/01/22 02/01/22 11:30 History glipizide 5 mg tablet, extended 5 mg PO QAM 02/01/22 02/01/22 02/01/22 11:30 History release 24 hr insulin glargine 100 unit/mL (3 40 unit SUBCUT BEDTIME 02/01/22 02/01/22 01/31/22 History mL) subcutaneous pen (Lantus Solostar U-100 Insulin) liraglutide 0.6 mg/0.1 mL (18 mg/3 1.2 mg SUBCUT BEDTIME 02/01/22 02/01/22 01/31/22 History mL) subcutaneous pen injector (Victoza 2-Matthew) lisinopril 40 mg tablet 40 mg PO QAM 02/01/22 02/01/22 02/01/22 11:30 History metformin 1,000 mg tablet 1,000 mg PO BID 02/01/22 02/01/22 02/01/22 History 1000 mg metformin 500 mg tablet 500 mg PO DAILY@12 02/01/22 02/01/22 01/31/22 History metoprolol tartrate 100 mg tablet 100 mg PO QAM 02/01/22 02/01/22 02/01/22 History quetiapine 50 mg tablet 50 mg PO BEDTIME 02/01/22 02/01/22 01/31/22 History ropinirole 4 mg tablet 8 mg PO BEDTIME 02/01/22 02/01/22 01/31/22 History simvastatin 20 mg tablet 20 mg PO BEDTIME 02/01/22 02/01/22 01/31/22 History venlafaxine 75 mg capsule,extended 75 mg PO BEDTIME 02/01/22 02/01/22 01/31/22 History release 24 hr Allergies Allergy/AdvReac Type Severity Reaction Status Date / Time Penicillins Allergy Mild breaks out Verified 02/01/22 14:30 in rash Current Medications Generic Name Dose Route Start Last Admin Trade Name Freq PRN Reason Stop Dose Admin Albuterol/Ipratropium 3 ml 02/02/22 12:00 02/02/22 15:03 Ipratropium-Albuterol 3 Ml Neb INHALATION 3 ml Q4H.RESPIRATORY LINA Administration Amlodipine Besylate 10 mg 02/02/22 06:00 02/02/22 06:01 Amlodipine 10 Mg Tablet PO 10 mg QAM LINA Administration Aspirin 325 mg 02/02/22 09:00 02/02/22 09:36 Aspirin 325 Mg Tablet PO 325 mg DAILY LINA Administration Atorvastatin Calcium 20 mg 02/01/22 21:00 02/01/22 20:37 Atorvastatin 40 Mg Tablet PO 20 mg BEDTIME LINA Administration Doxycycline Monohydrate 100 mg 02/02/22 10:45 02/02/22 11:10 Doxycycline 100 Mg Tablet PO 100 mg BID@0900,2100 LINA Administration Protocol Enoxaparin Sodium 40 mg 02/01/22 18:30 02/01/22 19:32 Enoxaparin 40 Mg/0.4 Ml Syringe SUBCUT 40 mg Q24H LINA Administration Gabapentin 800 mg 02/01/22 21:00 02/02/22 09:36 Gabapentin 400 Mg Capsule PO 800 mg BID@0900,2100 LINA Administration Insulin Glargine 40 unit 02/01/22 21:00 02/01/22 21:14 Insulin Glargine 100 Units/1 Ml SUBCUT 40 unit BEDTIME LINA Administration Insulin Human Lispro 0 unit 02/01/22 18:00 02/02/22 11:09 Insulin Lispro 100 Unit/1 Ml SUBCUT 8 unit WM&BEDTIME LINA Administration Protocol Lisinopril 40 mg 02/02/22 06:00 02/02/22 06:01 Lisinopril 20 Mg Tablet PO 40 mg QAM LINA Administration Quetiapine Fumarate 50 mg 02/01/22 21:00 02/01/22 20:37 Quetiapine 25 Mg Tablet PO 50 mg BEDTIME LINA Administration Ropinirole HCl 8 mg 02/01/22 21:00 02/01/22 20:37 Ropinirole 2 Mg Tablet PO 8 mg BEDTIME LINA Administration Venlafaxine HCl 75 mg 02/01/22 21:00 02/01/22 20:37 Venlafaxine Er (24hr) 75 Mg Capsule PO 75 mg BEDTIME LINA Administration PFSH Acute PFSH: Medical History Depression DM neuropathy, painful DM w/o complication type II, uncontrolled HTN (hypertension), benign Hyperlipemia, mixed Lupus He reports history of lupus diagnosed by Dr. Cortes, though there is no record of this. Psychiatric care Surgical History History of back surgery Family History Other Lupus Social History Smoking and tobacco status: former smoker Quit status (tobacco): has quit using tobacco Year quit tobacco: 1980s Former quit date comment: 1ppd x 2 years Alcohol intake: never Substance/Drug Use: never Vitals/I&O/Wt Last Vital Signs Temp 98.7 F 02/02/22 16:00 Pulse 78 02/02/22 16:00 Resp 17 02/02/22 16:00 BP 140/70 02/02/22 16:00 Pulse Ox 98 02/02/22 16:00 02/02/22 02/02/22 02/02/22 06:59 14:59 22:59 Intake Total 440 / 440 100 / 540 Balance 440 / 440 100 / 540 Weight last 48 hrs Weight 220 lb Physical Exam Narrative: GENERAL: The patient is alert and oriented times three. Not in any acute distress. Obese HEENT: No significant pallor, icterus or lymphadenopathy. The pupils are reactant to light. Oral cavity: There are no mucous membrane lesions. Funduscopic examination: The disk margins appear to be sharp with no exudates or hemorrhages. NECK: Trachea appears to be central. No masses noted. No JVD or thyromegaly appreciated. No carotid bruit. RESPIRATORY: Chest is symmetrical. No intercostals muscle retraction or any accessory muscle activation. There is no chest wall tenderness. Breath sounds are heard bilaterally. No rales or rhonchi heard. No evidence of any consolidation. BREASTS: Deferred. HEART: The PMI could not be palpated.. No palpable precordial events. S1 and S2 are normal. No S3 or S4 heard. No pericardial rub or any click heard. ABDOMEN: No vessel pulsations or distention. No tenderness. No organomegaly appreciated. No abdominal bruit. Bowel sounds are normally heard. : Deferred. RECTAL: Deferred. LYMPHATIC: No lymphadenopathy noted in the neck or groin. EXTREMITIES: Trace edema with no cyanosis. Peripheral pulses are palpable fairly good volume and amplitude. MUSCULOSKELETAL: No acute joint deformities or swelling. SKIN: There are no significant scars or skin rash noted. NEUROPSYCHIATRIC: The patient is alert and oriented x3. Appears to be in a good mood. The higher functions are grossly within normal limits. No tremors or rigidity noted. Data : 02/02/22 05:40 02/02/22 05:40 Other Labs: Laboratory Last Values WBC 10.7 10^3/uL (4.0-10.0) H 02/02/22 05:40 RBC 4.72 10^6/uL (4.1-5.3) 02/02/22 05:40 Hgb 13.5 g/dL (11.7-16.6) 02/02/22 05:40 Hct 41.4 % (42.0-52.0) L 02/02/22 05:40 MCV 87.7 fl (80-94) 02/02/22 05:40 MCH 28.6 pg (28.0-34.0) 02/02/22 05:40 MCHC 32.6 g/dL (30.0-36.0) 02/02/22 05:40 RDW 13.5 % (12.1-15.1) 02/02/22 05:40 Plt Count 218 10^3/cmm (130-400) 02/02/22 05:40 MPV 10.6 fL (7.4-10.4) H 02/02/22 05:40 Neut % (Auto) 66.1 % 02/02/22 05:40 Lymph % (Auto) 26.1 % 02/02/22 05:40 [place] % (Auto) 6.0 % 02/02/22 05:40 Eos % (Auto) 1.1 % 02/02/22 05:40 Baso % (Auto) 0.2 % 02/02/22 05:40 Neut # (Auto) 7.05 10^3/uL (1.8-7.7) 02/02/22 05:40 Lymph # (Auto) 2.8 10^3/uL (0.8-4.8) 02/02/22 05:40 [place] # (Auto) 0.6 10^3/uL (0.2-0.9) 02/02/22 05:40 Eos # (Auto) 0.1 10^3/uL (0.0-0.8) 02/02/22 05:40 Baso # (Auto) 0.0 10^3/uL (0.0-0.1) 02/02/22 05:40 Nucleated RBC % (auto) 0 % 02/02/22 05:40 Nucleated RBCs # 0.0 /100WBC 02/02/22 05:40 D-Dimer 0.31 ug/mIFEU (0-0.59) 02/01/22 14:00 Sodium 139 mmol/L (136-145) 02/02/22 05:40 Potassium 3.9 mmol/L (3.5-5.1) 02/02/22 05:40 Chloride 102 mmol/L (98-107) 02/02/22 05:40 Carbon Dioxide 27 mmol/L (22-29) 02/02/22 05:40 Anion Gap 13.9 (5-19) 02/02/22 05:40 BUN 17 mg/dL (6-20) 02/02/22 05:40 Creatinine 0.6 mg/dL (0.7-1.2) L 02/02/22 05:40 GFR Calculation 139.9 mL/min (90-130) H 02/02/22 05:40 Glucose 163 mg/dL (65-115) H 02/02/22 05:40 POC Glucose 158 mg/dL (70-110) H 02/02/22 06:27 Calculated Osmolality 293 mOsm/kg (285-295) 02/02/22 05:40 Calcium 9.4 mg/dL (8.5-10.5) 02/02/22 05:40 Troponin T Baseline 24 ng/L (0-15) H 02/01/22 14:00 Troponin T 120 Minute 20.85 ng/L (0-15) H 02/01/22 16:18 Delta Troponin T -3.15 ABS# (0-10) L 02/01/22 16:18 Troponin T Hi Sens 6Hr 22.62 ng/L (0-15) H 02/01/22 19:54 Troponin T Hi Sens 6Hr Delta -1.38 ng/L (0-12) L 02/01/22 19:54 Coronavirus 229E (PCR) Not detected (NOT DETECT) 02/02/22 01:00 Influenza Type A Ag Negative (Negative) 02/02/22 01:00 Influenza Type B Ag Negative (Negative) 02/02/22 01:00 SARS-CoV-2 (PCR) Not detected (NOT DETECT) 02/02/22 01:00 Myocardial perfusion imaging: My impression: . Abnormal myocardial perfusion imaging with small sized prior infarct with ?rosalio-infarct ischemia in left circumflex artery territory ?2. LV systolic function is normal EKG 1: My Interpretation: The EKG showed normal sinus rhythm with some nonspecific changes in the high lateral leads. Borderline first-degree AV block. Otherwise unremarkable. EKG computer-generated impression: Chest X-Ray 02/01/22 13:18 IMPRESSION: No acute findings. A&P Assessment and plan (1) Chest pain: The patient chest pain may suggest new onset angina. There was no evidence of any myocardial injury EKG changes are nonspecific. The myocardial perfusion scan revealed very small areas of ischemia. Status: Acute (2) Hyperlipemia, mixed: Patient is on a statin. This may be continued. Status: Acute (3) HTN (hypertension), benign: The blood pressure is fairly under control. May continue on the current medications. Status: Acute (4) DM w/o complication type II, uncontrolled: Aggressive management of the diabetes would be appropriate. Status: Chronic (5) Obstructive sleep apnea: Status: Acute Plan For further management of the patient's chest pain, optimizing medical treatment versus doing a cardiac catheterization to evaluate the coronary arteries and then decide on management were discussed. Patient is wanting to try medications for a while. He seems understand implications. At this point, it may appropriate to start him on isosorbide mononitrate 30 mg p.o. daily and sublingual nitroglycerin on a as needed basis. Also may be started on aspirin 162 mg daily. He is a patient continues remain stable, he may be discharged home on the current medications including the above. He will need to be seen at the [facility] 2 weeks by the nurse practitioner. I may see him in the office in 1 month. In the event of the patient having unusual chest pain, palpitations or any new symptoms, advised to contact our office. 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
--- NOTE | 2022-02-02 17:50 | NMCV_ITS ---
NM rony perf SPECT r/s* [id number] Tab Duke Age: 57 Gender: M : 1965 Exam Date: 02/02/2022 17:50 Ordering Phys: Kalin Ceja MD Technologist: LETY Charles Exam Location: [facility] Indications: CHEST PAIN STRESS TEST Please [facility] IMAGE PROTOCOL Rest/Stress 1 Lexiscan Day Radiopharmaceutical Dose (mCi) Administration Site Administered by Rest: Tc-99m 10.9 IV LETY Perez Sestamibi Stress:Tc-99m 32.4 IV LEYT Perez Sestamibi Rest: 02-Feb-2022 60 Discovery 630 Stress: 02-Feb-2022 30 Discovery 630 0.4mg Lexiscan. Images obtained in supine and prone position. SPECT RESULTS Technical Quality: Excellent Raw Data Analysis: Normal Image Corrections: No attenuation or motion correction applied Summed Stress Score: 5 Summed Rest Score: 3 Summed Difference Score: 2 PERFUSION FINDINGS There is a small sized partially reversible perfusion defect in the inferolateral and anterolateral [place]. This is consistent with small sized prior infarct with rosalio-infarct ischemia FUNCTIONAL RESULTS (calculated via Gated SPECT) Stress Image LV EF (%): 64 Stress EDV (mL):131 TID: 0.9 Stress ESV (mL):47 FUNCTIONAL FINDINGS: There is normal left ventricular systolic function. IMPRESSIONS 1. Abnormal myocardial perfusion imaging with small sized prior infarct with rosalio-infarct ischemia in left circumflex artery territory 2. LV systolic function is normal Jhon Perez MD (Electronically Signed) Final Date: 02 February 2022 11:46 S
[2022-02-02] MEDS: enoxaparin 40 mg/0.4 mL Syringe SUBCUT (18:34)
--- NOTE | 2022-02-02 21:19 | P.DS_ITS ---
Discharge Providers Date of Admission: 02/01/22 15:33 Date of Discharge: February 02, 2022 Attending Provider at Admission: Kalin Ceja Attending Provider at Discharge: Kalin Ceja Diagnoses at Discharge Discharge Diagnosis (1) Chest pain: Status: Acute (2) Hyperlipemia, mixed: Status: Acute (3) HTN (hypertension), benign: Status: Acute (4) DM w/o complication type II, uncontrolled: Status: Chronic (5) Obstructive sleep apnea: Status: Acute Reason for Visit Reason for Visit: dizziness / chest pain Brief History: 57-year-old gentleman with post Covid chronic dyspnea, CARL, has been intolerant of CPAP, uses chronic oxygen 1 L around the clock, with intermittent episodes of blackouts , with reported history of skipped beats, was referred for 7-day [place] er by pulmonology additionally with plans for PFT, CT chest, cardiology assessment. Presents to ER today due to chest tightness. Reports he has been having dry cough. This morning reports he also had chills and sweats. Occasional sharp pain on the left side of the chest with tightness mostly in the center. Sharp chest pain with some pleuritic component, worse with deep breaths. Some pleuritic worsening with tightness as well. Reports not related to activity, could appear when he is sitting down. Reports dyspnea on exertion. Denies orthopnea, although does not sleep on his back due to back problems. Denies productive cough or hemoptysis. His blood pressure has been elevated. Currently he has no sharp pain, some mild tightness persists. His EKG was unremarkable in ER, as was first troponin with mild elevation 24. 2-hour troponin coming back at 20.85. Chest x-ray without acute findings. D-dimer 0.31. He is afebrile, without leukocytosis. NB he also reports Raynaud's-like symptoms with his hands turning pale or feet purple when exposed to cold. Hospital Course Hospital Course He was admitted and additionally assessed for possible cardiac origin of the pain. Completed troponin EKG series were not suggestive of acute OH. Due to productive cough with sputum color change she was also treated with doxycycline for acute bronchitis alongside breathing treatments and Robitussin with guaifenesin. He was assessed by TTE with finding of normal ejection fraction, grade 1 diastolic dysfunction. He was additionally assessed by stress testing which found abnormal myocardial perfusion imaging with small size prior infarct with rosalio-infarct ischemia in left circumflex artery territory. Due to some persistent chest discomfort/pressure symptoms she was assessed additionally by cardiology. Options for additional assessment and management were discussed including proceeding to coronary angiography, however, on consideration he had decided to first proceed with medical therapy which is escalated to contain aspirin, high intensity statin, continue to beta-tre and addition of Imdur. We discussed also continued optimization of control of risk factors of coronary disease, including hypertension, diabetes, weight loss. He does report that he has lost close to 70 pounds in the last 6 months. He does state that some of it was due to him trying, and some was due to unfortunate circumstances of him ending up in penitentiary. Please revisit with him regarding weight loss. Please ensure he is up-to-date on his health screenings. He is asked to follow-up with cardiology in office in 2 weeks for reassessment. He also reported that he has not been compliant with CPAP due to being unable to tolerate it. Discussed with him to contact the equipment supplier for consideration of possible adjustments to make the therapy tolerable. Of note he reports Raynaud's phenomenon. He states he was Priestly diagnosed with lupus, although no record of this is found. Please visit with him during follow-up. Physical Exam Narrative: Accompanied by family. Const: COMMON NORMALS: alert GENERAL APPEARANCE: cooperative NUTRITIONAL APPEARANCE: overweight ORIENTATION/CONSCIOUSNESS: Yes awake HENMT: COMMON NORMALS: normocephalic, EAC's normal, Normal external nose present and moist oral mucous membranes HEAD & SCALP: normocephalic NOSE: Normal external nose present EXTERNAL AUDITORY CANAL: EAC's normal Neck/C-Spine: COMMON NORMALS: no meningeal signs Chest: CHEST: Yes Symmetrical chest wall rise Resp: COMMON NORMALS: clear to auscultation bilaterally AUSCULTATION: clear to auscultation bilaterally and rhonchi (few) Cardio: COMMON NORMALS: regular rate, regular rhythm and No murmurs present (Cardio) RATE: regular rate RHYTHM: regular rhythm GI: COMMON NORMALS: Normal to inspection, nondistended, normoactive bowel sounds present, Soft to palpation and non-tender PALPATION: Yes Soft to palpation Extremity: COMMON NORMALS: no pedal edema Neuro: COMMON NORMALS: moves all extremities SENSORIUM/ORIENTATION: Yes alert MENINGEAL SIGNS: Yes no meningeal signs Psych: COMMON NORMALS: mental status grossly normal Skin: COMMON NORMALS: no wounds RASHES: no rashes Discharge Data Studies Completed and Pending Completed Studies During Hospitalization Category Date Time Status Sestamibi Stress Test Request Routine Exams 02/02/22 08:00 Draft XR chest 1V portable [id number] Urgent Exams 02/01/22 13:18 Completed NM rony perf SPECT r/s* [id number] Routine Nuc Med 02/02/22 17:50 Completed CV. echo complete* [id number] Routine Ultrasound 02/01/22 17:50 Completed Radiology Impressions Chest X-Ray 02/01/22 13:18 IMPRESSION: No acute findings. Laboratory Results WBC 10.7 10^3/uL (4.0-10.0) H 02/02/22 05:40 RBC 4.72 10^6/uL (4.1-5.3) 02/02/22 05:40 Hgb 13.5 g/dL (11.7-16.6) 02/02/22 05:40 Hct 41.4 % (42.0-52.0) L 02/02/22 05:40 MCV 87.7 fl (80-94) 02/02/22 05:40 MCH 28.6 pg (28.0-34.0) 02/02/22 05:40 MCHC 32.6 g/dL (30.0-36.0) 02/02/22 05:40 RDW 13.5 % (12.1-15.1) 02/02/22 05:40 Plt Count 218 10^3/cmm (130-400) 02/02/22 05:40 MPV 10.6 fL (7.4-10.4) H 02/02/22 05:40 Neut % (Auto) 66.1 % 02/02/22 05:40 Lymph % (Auto) 26.1 % 02/02/22 05:40 [place] % (Auto) 6.0 % 02/02/22 05:40 Eos % (Auto) 1.1 % 02/02/22 05:40 Baso % (Auto) 0.2 % 02/02/22 05:40 Neut # (Auto) 7.05 10^3/uL (1.8-7.7) 02/02/22 05:40 Lymph # (Auto) 2.8 10^3/uL (0.8-4.8) 02/02/22 05:40 [place] # (Auto) 0.6 10^3/uL (0.2-0.9) 02/02/22 05:40 Eos # (Auto) 0.1 10^3/uL (0.0-0.8) 02/02/22 05:40 Baso # (Auto) 0.0 10^3/uL (0.0-0.1) 02/02/22 05:40 Nucleated RBC % (auto) 0 % 02/02/22 05:40 Nucleated RBCs # 0.0 /100WBC 02/02/22 05:40 D-Dimer 0.31 ug/mIFEU (0-0.59) 02/01/22 14:00 Sodium 139 mmol/L (136-145) 02/02/22 05:40 Potassium 3.9 mmol/L (3.5-5.1) 02/02/22 05:40 Chloride 102 mmol/L (98-107) 02/02/22 05:40 Carbon Dioxide 27 mmol/L (22-29) 02/02/22 05:40 Anion Gap 13.9 (5-19) 02/02/22 05:40 BUN 17 mg/dL (6-20) 02/02/22 05:40 Creatinine 0.6 mg/dL (0.7-1.2) L 02/02/22 05:40 GFR Calculation 139.9 mL/min (90-130) H 02/02/22 05:40 Glucose 163 mg/dL (65-115) H 02/02/22 05:40 POC Glucose 158 mg/dL (70-110) H 02/02/22 06:27 Calculated Osmolality 293 mOsm/kg (285-295) 02/02/22 05:40 Calcium 9.4 mg/dL (8.5-10.5) 02/02/22 05:40 Troponin T Baseline 24 ng/L (0-15) H 02/01/22 14:00 Troponin T 120 Minute 20.85 ng/L (0-15) H 02/01/22 16:18 Delta Troponin T -3.15 ABS# (0-10) L 02/01/22 16:18 Troponin T Hi Sens 6Hr 22.62 ng/L (0-15) H 02/01/22 19:54 Troponin T Hi Sens 6Hr Delta -1.38 ng/L (0-12) L 02/01/22 19:54 Coronavirus 229E (PCR) Not detected (NOT DETECT) 02/02/22 01:00 Influenza Type A Ag Negative (Negative) 02/02/22 01:00 Influenza Type B Ag Negative (Negative) 02/02/22 01:00 SARS-CoV-2 (PCR) Not detected (NOT DETECT) 02/02/22 01:00 Vitals Last Vital Signs Temp 98.7 F 02/02/22 19:17 Pulse 78 02/02/22 19:17 Resp 17 02/02/22 19:17 BP 140/70 02/02/22 19:17 Pulse Ox 98 02/02/22 19:17 Discharge Plan Discharge Patient Disposition: Home Condition: Stable Prescriptions: New aspirin 81 mg capsule 81 mg PO DAILY Qty: 90 0RF atorvastatin 40 mg Tablet 40 mg PO BEDTIME Qty: 90 0RF isosorbide mononitrate 30 mg tablet extended release 24 hr 30 mg PO DAILY Qty: 90 0RF dextromethorphan-guaifenesin 10-100 mg/5 mL Syrup 10 ml PO Q4H PRN (Reason: Cough) Qty: 237 1RF doxycycline monohydrate 100 mg Tablet 100 mg PO BID@0900,2100 Qty: 10 0RF nitroglycerin 0.4 mg Tablet, Sublingual 0.4 mg sublingual Q5M PRN (Reason: Chest Pain) Qty: 20 0RF Continued (DME) pen needle, diabetic [Comfort EZ Pen [place]] 29 gauge x 1/2 needle See Rx Instructions .Route Qty: 100 1RF Rx Instructions: As directed albuterol sulfate [ProAir HFA] 90 mcg/actuation HFA aerosol inhaler 2 puff inhalation Q6H PRN (Reason: shortness of breath or wheezing) Qty: 6.7 0RF metformin 500 mg tablet 500 mg PO DAILY@12 0RF glipizide 5 mg tablet extended release 24 hr 5 mg PO QAM 0RF gabapentin 800 mg tablet 800 mg PO BID 0RF amlodipine 10 mg tablet 10 mg PO QAM 0RF metformin 1,000 mg tablet 1,000 mg PO BID 0RF Rx Instructions: am and pm lisinopril 40 mg tablet 40 mg PO QAM 0RF Lantus Solostar U-100 Insulin 100 unit/mL (3 mL) insulin pen 40 unit SUBCUT BEDTIME 0RF ropinirole 4 mg tablet 8 mg PO BEDTIME 0RF quetiapine 50 mg tablet 50 mg PO BEDTIME 0RF venlafaxine 75 mg capsule,extended release 24hr 75 mg PO BEDTIME 0RF metoprolol tartrate 100 mg tablet 100 mg PO QAM 0RF Victoza 2-Matthew 0.6 mg/0.1 mL (18 mg/3 mL) pen injector 1.2 mg SUBCUT BEDTIME 0RF Discontinued simvastatin 20 mg tablet 20 mg PO BEDTIME 0RF Discharge Orders: Discharge Order (Routine); Ordered 02/02/22 Ordered By: Kalin Ceja Referrals: Luh Castro FNP [Staff Physician] - 4-7 days (Please call tomorrow morning to schedule a hospital follow up appointment. ) Lali Penny FNP [Nurse Practitioner] - 2 weeks (Please call tomorrow morning to schedule a hospital follow up appointment. ) Discharge Diet: Cardiac and Diabetic Discharge Activity: Increase activity as tolerated Patient Instructions: Nitroglycerin (By mouth), Doxycycline (By mouth), Aspirin (By mouth), Isosorbide Mononitrate (By mouth) (Imdur, Imdur ER, Ismo), Atorvastatin (By mouth), Coronary Artery Disease (GEN), Acute Bronchitis (GEN), Opioid Safety Activity Restrictions/Additional Instructions: Please follow-up with your primary doctor for reassessment of improvement in symptoms of chest discomfort. As well as recovery from bronchitis. Please resume follow-up with your lung specialist with the planned studies including pulmonary function test, CT chest. Please discuss with your primary doctor, blood typer regarding possible adjustments to CPAP which could possibly allow you to tolerate to wear it. Sleep apnea as it may have additional benefits to help you control your blood pressure and other comorbidities. Continue to optimize blood pressure control, diabetes control and other risk factors of coronary disease. Discussed weight loss with your primary doctor including your recent weight loss over the last 6 months. Please discuss with your primary doctor also regarding Raynaud's phenomenon. Discussed also possible past diagnosis of lupus. In case of any worsening of symptoms with bothersome chest discomfort, shortness of breath, blacking out, or cramps or any other concerning symptoms please seek assessment in ER. Discharge Attestations Time Spent in Discharge Care*: greater than 30 min Quality Metrics Clinical Quality Measures [ No reported AMI, CVA or VTE this stay] Coding Level of Care Code Acute Chg FW DC note Diagnoses Chest pain R07.9 Hyperlipemia, mixed E78.2 HTN (hypertension), benign I10 DM w/o complication type II, uncontrolled E11.65 Obstructive sleep apnea G47.33
[2022-02-02 21:35] LABS: Glucose Point of Care 233 mg/dL (70-110)
[2022-02-02 21:35] LABS: Glucose Point of Care 283 mg/dL (70-110)
== END 2022-02-02 19:18 | disposition home or self-care (01) ==
LOC: ER 15:32 → MEDSURG 17:10
PROVIDERS: Admitting Provider Internal Medicine; Emergency Provider Emergency Medicine; Visit Provider Internal Medicine
DX: R07.89 Other chest pain (principal); R05.8 Other specified cough; I73.00 Raynaud's syndrome without gangrene; I10 Essential (primary) hypertension; E78.2 Mixed hyperlipidemia; E11.65 Type 2 diabetes mellitus with hyperglycemia; G47.33 Obstructive sleep apnea (adult) (pediatric); Z86.16 Personal history of COVID-19; Z99.81 Dependence on supplemental oxygen; Z79.4 Long term (current) use of insulin; Z79.84 Long term (current) use of oral hypoglycemic drugs; Z87.891 Personal history of nicotine dependence
CPT/HCPCS: 36416; 71045; 78452; 80048; 82962; 84484; 85025; 85378; 87635; 87804; 93005; 93017; 93306; 94640; 94664; 96372; 99285; A9500; G0378; J1650; J1815 ×2; J2785

== ENCOUNTER 2022-02-04 13:11 | Observation (INO) | payer MEDICAID, SELFPAY ==
[2022-02-04] VITALS (13 sets, daily range): BP systolic 119–156; BP diastolic 73–82; PULSE 68–89; RESP 14–18; TEMP 36.6–36.9; O2SAT 92–96; BMI 34.4
--- NOTE | 2022-02-04 14:15 | XR_ITS ---
WS: [id number] Portable AP upright chest, 02/04/2022 Clinical Data: chest pain Comparison: Portable chest, 02/01/2022. Findings: No nodules, masses or effusions are seen. The heart is normal. The pulmonary vascularity is not increased. No pneumonia or pneumothorax is seen. XR/XR chest 1V portable [id number] Impression: Negative chest.
--- NOTE | 2022-02-04 14:15 | ECG_ITS ---
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 Measurements Intervals [place] Rate: 91 P: 66 [place]: 187 QRS: 30 QRSD: 97 T: 70 QT: 367 QTc: 453 Interpretive Statements SINUS RHYTHM Compared to ECG 02/01/2022 21:13:42 T-wave abnormality no longer present Electronically Signed On 02-04-2022 18:07:19 CDT by Jhon Perez M.D. [id number]
[2022-02-04 14:46] LABS: Basophils % 0.3 %; Eosinophils # 0.2 10^3/uL (0.0-0.8); Eosinophils % 1.7 %; Hematocrit 44.5 % (42.0-52.0); Hemoglobin 14.4 g/dL (11.7-16.6); Lymphocytes # 2.5 10^3/uL (0.8-4.8); Lymphocytes % 21.5 %; Mean Corpuscular HGB Conc 32.4 g/dL (30.0-36.0); Mean Corpuscular Hemoglobin 29.1 pg (28.0-34.0); Mean Corpuscular Volume 89.9 fl (80-94); Mean Platelet Volume 10.6 fL (7.4-10.4); Monocytes # 0.8 10^3/uL (0.2-0.9); Monocytes % 6.7 %; Neutrophils # 7.91 10^3/uL (1.8-7.7); Neutrophils % 69.2 %; Nucleated Red Blood Cells % 0 %; Platelet Count 242 10^3/cmm (130-400); Red Blood Count 4.95 10^6/uL (4.1-5.3); Red Cell Distribution Width 13.7 % (12.1-15.1); White Blood Count 11.4 10^3/uL (4.0-10.0)
--- NOTE | 2022-02-04 14:54 | ED_ITS ---
HPI - Chest Pain General: Chief Complaint: Chest Pain Stated Complaint: chest pain Time Seen by Provider: 02/04/22 14:17 [facility]: Medical History Depression DM neuropathy, painful DM w/o complication type II, uncontrolled HTN (hypertension), benign Hyperlipemia, mixed Lupus He reports history of lupus diagnosed by Dr. Cortes, though there is no record of this. Psychiatric care Surgical History History of back surgery Family History Other Lupus Social History Smoking and tobacco status: former smoker Quit status (tobacco): has quit using tobacco Year quit tobacco: Former quit date comment: 1ppd x 2 years Alcohol intake: never Course Vital Signs: Vital signs: Vital Signs Temperature 98.5 F 02/04/22 13:29 Pulse Rate 89 02/04/22 13:29 Respiratory Rate 14 02/04/22 13:29 Blood Pressure 156/73 02/04/22 13:29 Pulse Oximetry 96 02/04/22 13:29 MDM - Chest Pain Lab Data : 02/04/22 14:40 02/04/22 14:40 Radiology Impressions Chest X-Ray 02/04/22 14:15 Impression: Negative chest. Laboratory Results WBC 11.4 10^3/uL (4.0-10.0) H 02/04/22 14:40 RBC 4.95 10^6/uL (4.1-5.3) 02/04/22 14:40 Hgb 14.4 g/dL (11.7-16.6) 02/04/22 14:40 Hct 44.5 % (42.0-52.0) 02/04/22 14:40 MCV 89.9 fl (80-94) 02/04/22 14:40 MCH 29.1 pg (28.0-34.0) 02/04/22 14:40 MCHC 32.4 g/dL (30.0-36.0) 02/04/22 14:40 RDW 13.7 % (12.1-15.1) 02/04/22 14:40 Plt Count 242 10^3/cmm (130-400) 02/04/22 14:40 MPV 10.6 fL (7.4-10.4) H 02/04/22 14:40 Neut % (Auto) 69.2 % 02/04/22 14:40 Lymph % (Auto) 21.5 % 02/04/22 14:40 [place] % (Auto) 6.7 % 02/04/22 14:40 Eos % (Auto) 1.7 % 02/04/22 14:40 Baso % (Auto) 0.3 % 02/04/22 14:40 Neut # (Auto) 7.91 10^3/uL (1.8-7.7) H 02/04/22 14:40 Lymph # (Auto) 2.5 10^3/uL (0.8-4.8) 02/04/22 14:40 [place] # (Auto) 0.8 10^3/uL (0.2-0.9) 02/04/22 14:40 Eos # (Auto) 0.2 10^3/uL (0.0-0.8) 02/04/22 14:40 Baso # (Auto) 0.0 10^3/uL (0.0-0.1) 02/04/22 14:40 Nucleated RBC % (auto) 0 % 02/04/22 14:40 Nucleated RBCs # 0.0 /100WBC 02/04/22 14:40 Discharge Plan Discharge Condition: Stable Prescriptions: No Action (DME) pen needle, diabetic [Comfort EZ Pen [place]] 29 gauge x 1/2 needle See Rx Instructions .Route Qty: 100 1RF Rx Instructions: As directed albuterol sulfate [ProAir HFA] 90 mcg/actuation HFA aerosol inhaler 2 puff inhalation Q6H PRN (Reason: shortness of breath or wheezing) Qty: 6.7 0RF metformin 500 mg tablet 500 mg PO DAILY@12 0RF glipizide 5 mg tablet extended release 24 hr 5 mg PO QAM 0RF gabapentin 800 mg tablet 800 mg PO BID 0RF amlodipine 10 mg tablet 10 mg PO QAM 0RF metformin 1,000 mg tablet 1,000 mg PO BID 0RF Rx Instructions: am and pm lisinopril 40 mg tablet 40 mg PO QAM 0RF Lantus Solostar U-100 Insulin 100 unit/mL (3 mL) insulin pen 40 unit SUBCUT BEDTIME 0RF ropinirole 4 mg tablet 8 mg PO BEDTIME 0RF quetiapine 50 mg tablet 50 mg PO BEDTIME 0RF venlafaxine 75 mg capsule,extended release 24hr 75 mg PO BEDTIME 0RF metoprolol tartrate 100 mg tablet 100 mg PO QAM 0RF Victoza 2-Matthew 0.6 mg/0.1 mL (18 mg/3 mL) pen injector 1.2 mg SUBCUT BEDTIME 0RF aspirin 81 mg capsule 81 mg PO DAILY Qty: 90 0RF atorvastatin 40 mg Tablet 40 mg PO BEDTIME Qty: 90 0RF isosorbide mononitrate 30 mg tablet extended release 24 hr 30 mg PO DAILY Qty: 90 0RF dextromethorphan-guaifenesin 10-100 mg/5 mL Syrup 10 ml PO Q4H PRN (Reason: Cough) Qty: 237 1RF doxycycline monohydrate 100 mg Tablet 100 mg PO BID@0900,2100 Qty: 10 0RF nitroglycerin 0.4 mg Tablet, Sublingual 0.4 mg sublingual Q5M PRN (Reason: Chest Pain) Qty: 20 0RF Coding Level of Care Code ED Control Systems Engineer for Chg Maribel
--- NOTE | 2022-02-04 14:55 | ED_ITS ---
HPI - General Adult General: Chief complaint: Chest Pain Stated complaint: chest pain Time Seen by Provider: 02/04/22 14:17 History of Present Illness: Patient is a 57-year-old male with a history of DM, HTN, smoker, COVID chronic dyspnea, CARL chronically 1 L of oxygen during the emergency room initially on 02/01 for complaints of chest pressure and diaphoresis. Patient was mated to hospital underwent stress test which showed perfusion mismatch in the left circumflex artery. Patient was initially discharged home with medical therapy with close follow-up with Dr. Yao. Since his discharge 2 days ago, patient has been complaining of worsening chest pain today. Patient has had 4 episodes of intermittent chest pressure-like sensation with radiation to the left arm associated with lightheadedness and near syncope. Patient was noted to be diaphoretic and pale during these episodes of chest pressure. Patient reports that he is currently having 5 out of 10 chest pressure. Patient reports exertional dyspnea has been taking his medicine but without any significant improvement. Patient denies any pleuritic chest pain, or tearing chest pain radiation to the back. Patient denies any nausea/vomiting/cough, runny nose, sore throat. No complaints of lower extremity swelling. No risk factor for VTE including recent immobilization, travel, or prior hx of VTEs. Onset:earlier this AM Duration:ongoing Location: home Severity: moderate Associated symptoms: Reports chest pain and dyspnea (+exertional dyspnea); Deny nausea, rash, palpitations or vomiting Review of Systems Const: Denies: fever(s) or chills Eyes: Denies: change in vision ENMT: Denies: mouth pain Card: Reports: chest pain; Denies: palpitations Resp: Reports: dyspnea (+exertional dyspnea); Denies: non-productive cough GI: Denies: abdominal pain, nausea, vomiting or diarrhea : Denies: dysuria Musc: Denies: extremity pain Skin/Breast: Denies: rash or new lesions Neuro: Denies: weakness in extremities Psych: Reports: other (Normal mood) Americo/Lymph: Denies: easy bruising PFSH ED PFSH: Medical History Depression DM neuropathy, painful DM w/o complication type II, uncontrolled HTN (hypertension), benign Hyperlipemia, mixed Lupus He reports history of lupus diagnosed by Dr. Cortes, though there is no record of this. Psychiatric care Surgical History History of back surgery Family History Other Lupus Social History Smoking and tobacco status: former smoker Quit status (tobacco): has quit using tobacco Year quit tobacco: Former quit date comment: 1ppd x 2 years Alcohol intake: never Physical Exam Const: COMMON NORMALS: alert HENMT: COMMON NORMALS: atraumatic HEAD & SCALP: atraumatic MOUTH: moist mucous membranes not abnormal Eye: COMMON NORMALS: EOMs intact bilaterally and conjunctivae normal CONJUNCTIVA: Yes conjunctivae normal Neck/C-Spine: COMMON NORMALS: full ROM and supple Resp: COMMON NORMALS: normal respiratory effort and clear to auscultation bilaterally AUSCULTATION: clear to auscultation bilaterally Cardio: COMMON NORMALS: regular rate RATE: regular rate OTHER: 2+ radial pulses b/l GI: COMMON NORMALS: Soft to palpation and non-tender PALPATION: Yes Soft to palpation Extremity: COMMON NORMALS: full ROM OTHER: no LE swellings Neuro: SENSORIUM/ORIENTATION: Yes alert MOTOR EXAM: No Abnormal motor strength present and Other motor observations present (no focal motor deficits) Psych: COMMON NORMALS: speech normal SPEECH: Yes normal speech MOOD & AFFECT: Yes euthymic mood Course Vital Signs: Vital signs: Vital Signs Temperature 98.5 F 02/04/22 13:29 Pulse Rate 89 02/04/22 13:29 Respiratory Rate 16 02/04/22 15:19 Blood Pressure 156/73 02/04/22 13:29 Pulse Oximetry 96 02/04/22 13:29 MDM - General Adult Medical Decision Making 57-year-old male with a history of DM, HTN chronic dyspnea, CARL with recent stress test showing area of ischemia around the circumflex post infarction area. EKG is nonischemic currently. Patient reports pain 4 out of 10. Patient received aspirin, morphine with significant provement in pain. Troponin similar to baseline. Case was discussed with Dr. Yao who recommended inpatient admission for cath study since patient still has persistent pain despite being on medical therapy. Dr. Moncada agreed with plan. Disposition: admission Lab Data : 02/04/22 14:40 02/04/22 14:40 Radiology Impressions Chest X-Ray 02/04/22 14:15 Impression: Negative chest. Laboratory Results WBC 11.4 10^3/uL (4.0-10.0) H 02/04/22 14:40 RBC 4.95 10^6/uL (4.1-5.3) 02/04/22 14:40 Hgb 14.4 g/dL (11.7-16.6) 02/04/22 14:40 Hct 44.5 % (42.0-52.0) 02/04/22 14:40 MCV 89.9 fl (80-94) 02/04/22 14:40 MCH 29.1 pg (28.0-34.0) 02/04/22 14:40 MCHC 32.4 g/dL (30.0-36.0) 02/04/22 14:40 RDW 13.7 % (12.1-15.1) 02/04/22 14:40 Plt Count 242 10^3/cmm (130-400) 02/04/22 14:40 MPV 10.6 fL (7.4-10.4) H 02/04/22 14:40 Neut % (Auto) 69.2 % 02/04/22 14:40 Lymph % (Auto) 21.5 % 02/04/22 14:40 Potter % (Auto) 6.7 % 02/04/22 14:40 Eos % (Auto) 1.7 % 02/04/22 14:40 Baso % (Auto) 0.3 % 02/04/22 14:40 Neut # (Auto) 7.91 10^3/uL (1.8-7.7) H 02/04/22 14:40 Lymph # (Auto) 2.5 10^3/uL (0.8-4.8) 02/04/22 14:40 Potter # (Auto) 0.8 10^3/uL (0.2-0.9) 02/04/22 14:40 Eos # (Auto) 0.2 10^3/uL (0.0-0.8) 02/04/22 14:40 Baso # (Auto) 0.0 10^3/uL (0.0-0.1) 02/04/22 14:40 Nucleated RBC % (auto) 0 % 02/04/22 14:40 Nucleated RBCs # 0.0 /100WBC 02/04/22 14:40 Sodium 140 mmol/L (136-145) 02/04/22 14:40 Potassium 4.7 mmol/L (3.5-5.1) 02/04/22 14:40 Chloride 100 mmol/L (98-107) 02/04/22 14:40 Carbon Dioxide 30 mmol/L (22-29) H 02/04/22 14:40 Anion Gap 14.7 (5-19) 02/04/22 14:40 BUN 13 mg/dL (6-20) 02/04/22 14:40 Creatinine 0.6 mg/dL (0.7-1.2) L 02/04/22 14:40 GFR Calculation 139.9 mL/min (90-130) H 02/04/22 14:40 Glucose 132 mg/dL (65-115) H 02/04/22 14:40 Calculated Osmolality 292 mOsm/kg (285-295) 02/04/22 14:40 Calcium 10.1 mg/dL (8.5-10.5) 02/04/22 14:40 Troponin T Baseline 26 ng/L (0-15) H 02/04/22 14:40 Imaging Data Other Imaging: Radiologist's impression: [address] [place] [address] XRay Report Signed Patient: Tab Duke Unit #: [id number] : 1965 Age/Sex: 57 / M ADM Date: 02/04/22 Loc: ER Room/Bed: Attending Dr: Ordering Provider/Ordering MD: Raine Chester MD Date of Service: 02/04/22 Procedure(s): XR chest 1V portable [id number] Accession Number(s): [id number] Report Number: [id number] WS: [id number] Portable AP upright chest, 02/04/2022 Clinical Data: chest pain Comparison: Portable chest, 02/01/2022. Findings: No nodules, masses or effusions are seen. The heart is normal. The pulmonary vascularity is not increased. No pneumonia or pneumothorax is seen. XR/XR chest 1V portable [id number] Impression: Negative chest. ? Dictated By: Luh Mcintyre MD Signed By: Luh Mcintyre MD Signed Date/Time: 02/04/221431 DD/ 30 Discharge Plan Discharge Condition: Stable Prescriptions: No Action (DME) pen needle, diabetic [Comfort EZ Pen [place]] 29 gauge x 1/2 needle See Rx Instructions .Route Qty: 100 1RF Rx Instructions: As directed albuterol sulfate [ProAir HFA] 90 mcg/actuation HFA aerosol inhaler 2 puff inhalation Q6H PRN (Reason: shortness of breath or wheezing) Qty: 6.7 0RF metformin 500 mg tablet 500 mg PO DAILY PRN (Reason: High Blood sugar) 0RF glipizide 5 mg tablet extended release 24 hr 5 mg PO QAM 0RF gabapentin 800 mg tablet 800 mg PO BID 0RF amlodipine 10 mg tablet 10 mg PO QAM 0RF metformin 1,000 mg tablet 1,000 mg PO BID 0RF lisinopril 40 mg tablet 40 mg PO QAM 0RF Lantus Solostar U-100 Insulin 100 unit/mL (3 mL) insulin pen 40 unit SUBCUT BEDTIME 0RF ropinirole 4 mg tablet 8 mg PO BEDTIME 0RF quetiapine 50 mg tablet 50 mg PO BEDTIME 0RF venlafaxine 75 mg capsule,extended release 24hr 75 mg PO BEDTIME 0RF metoprolol tartrate 100 mg tablet 100 mg PO QAM 0RF Victoza 2-Matthew 0.6 mg/0.1 mL (18 mg/3 mL) pen injector 1.2 mg SUBCUT BEDTIME 0RF aspirin 81 mg capsule 81 mg PO DAILY Qty: 90 0RF atorvastatin 40 mg Tablet 40 mg PO BEDTIME Qty: 90 0RF isosorbide mononitrate 30 mg tablet extended release 24 hr 30 mg PO DAILY Qty: 90 0RF dextromethorphan-guaifenesin 10-100 mg/5 mL Syrup 10 ml PO Q4H PRN (Reason: Cough) Qty: 237 1RF nitroglycerin 0.4 mg Tablet, Sublingual 0.4 mg sublingual Q5M PRN (Reason: Chest Pain) Qty: 20 0RF Coding Level of Care Code ED Rn Procedure for Chg Fwd Exam Comprehensive
[2022-02-04 15:19] LABS: Blood Urea Nitrogen 13 mg/dL (6-20); Calcium 10.1 mg/dL (8.5-10.5); Carbon Dioxide 30 mmol/L (22-29); Chloride 100 mmol/L (98-107); Glomerular Filtration Rate 139.9 mL/min (90-130); Glucose 132 mg/dL (65-115); Osmolality Calculated 292 mOsm/kg (285-295); Sodium 140 mmol/L (136-145)
[2022-02-04] MEDS: morphine 4 mg/mL SDV 1 mL IVP (15:19)
[2022-02-04] MEDS: aspirin 325 mg Tablet PO (15:19)
[2022-02-04 15:20] LABS: Anion Gap 14.7 (5-19); Potassium 4.7 mmol/L (3.5-5.1); Troponin(5th) Baseline 26 ng/L (0-15)
--- NOTE | 2022-02-04 16:15 | ECG_ITS ---
[facility] Test Date: 2022-02-04 Pat Name: Tab Duke Department: Room: Gender: Male [employer] Assistant: : 1965 Requested By: Raine Chester Order Number: [id number] Ashley MD: Jhon Perez M.D. Measurements Intervals [place] Rate: 75 P: 59 RI: 199 QRS: 30 QRSD: 110 T: 85 QT: 377 QTc: 422 Interpretive Statements SINUS RHYTHM Compared to ECG 02/04/2022 13:28:43 No significant changes Electronically Signed On 02-04-2022 18:11:19 CDT by Jhon Perez M.D. [id number]
[2022-02-04 16:51] LABS: Troponin 5 2HR 21.33 ng/L (0-15)
[2022-02-04 16:54] LABS: Troponin 5 2HR Delta -4.67 ABS# (0-10)
--- NOTE | 2022-02-04 18:42 | P.HP_ITS ---
Providers/Chief Complaint Admitting Physician: Trev Moncada MD Chief Complaint: chest pain History of Present Illness Tab Duke is a 57 year old male with past medical history of hypertension diabetes came in with chief complaint of dizziness,generalized weakness, fatigue which started a week back and since then has progressively worsened, he is also complaining of left-sided substernal chest pain radiating to his armpit sharp in nature relieved with nitro as well as morphine started since this Tuesday completed with diaphoresis He was recently discharged from the hospital after being worked up for chest pain, at that time nuclear stress test was done, as well as 2D echo, he was advised cardiac cath, but he opted for medical management, he was discharged on aspirin starting Imdur sublingual nitrate came back again today with ongoing chest pain. Upon arrival in the ER he was worked up for above-mentioned complaint: EKG: Sinus rhythm Troponin trend:, Review of Systems General: Reports: 10 or more systems reviewed and unremarkable except in HPI and below Const: Denies: fever(s), chills, body aches, change in appetite or diaphoresis Card: Denies: edema, swelling of feet/ankles, dyspnea on exertion, orthopnea or leg pain with exertion Resp: Denies: dyspnea, productive cough, wheezing or pain on inspiration GI: Denies: abdominal pain, nausea, vomiting, diarrhea or constipation : Denies: flank pain or difficulty urinating Musc: Denies: back pain, extremity pain or extremity swelling Neuro: Denies: headache(s), difficulty walking or confusion Medications/Allergies Home Medications Medication Instructions Recorded Confirmed Last Taken Type albuterol sulfate 90 mcg/actuation 2 puff INHALATION Q6H PRN #6.7 g 05/25/21 02/04/22 Unknown Rx aerosol inhaler (ProAir HFA) pen needle, diabetic 29 gauge x #100 ea 05/25/21 02/04/22 Unknown Rx 1/2 (Comfort EZ Pen [place]) amlodipine 10 mg tablet 10 mg PO QAM 02/01/22 02/04/22 02/04/22 History gabapentin 800 mg tablet 800 mg PO BID 02/01/22 02/04/22 02/04/22 History glipizide 5 mg tablet, extended 5 mg PO QAM 02/01/22 02/04/22 02/04/22 History release 24 hr insulin glargine 100 unit/mL (3 40 unit SUBCUT BEDTIME 02/01/22 02/04/22 02/03/22 History mL) subcutaneous pen (Lantus Solostar U-100 Insulin) liraglutide 0.6 mg/0.1 mL (18 mg/3 1.2 mg SUBCUT BEDTIME 02/01/22 02/04/22 02/03/22 History mL) subcutaneous pen injector (Victoza 2-Matthew) lisinopril 40 mg tablet 40 mg PO QAM 02/01/22 02/04/22 02/04/22 History metformin 1,000 mg tablet 1,000 mg PO BID 02/01/22 02/04/22 02/04/22 History metformin 500 mg tablet 500 mg PO DAILY PRN 02/01/22 02/04/22 02/04/22 History metoprolol tartrate 100 mg tablet 100 mg PO QAM 02/01/22 02/04/22 02/04/22 History quetiapine 50 mg tablet 50 mg PO BEDTIME 02/01/22 02/04/22 02/03/22 History ropinirole 4 mg tablet 8 mg PO BEDTIME 02/01/22 02/04/22 02/03/22 History venlafaxine 75 mg capsule,extended 75 mg PO BEDTIME 02/01/22 02/04/22 02/03/22 History release 24 hr aspirin 81 mg capsule 81 mg PO DAILY #90 cap 02/02/22 02/04/22 02/04/22 Rx atorvastatin 40 mg tablet 40 mg PO BEDTIME #90 tab 02/02/22 02/04/22 02/03/22 Rx dextromethorphan-guaifenesin 10 10 ml PO Q4H PRN #237 ml 02/02/22 02/04/22 Unknown Rx mg-100 mg/5 mL oral syrup isosorbide mononitrate 30 mg 30 mg PO DAILY #90 tab 02/02/22 02/04/22 02/04/22 Rx tablet,extended release 24 hr nitroglycerin 0.4 mg sublingual 0.4 mg SUBLINGUAL Q5M PRN #20 tab 02/02/22 02/04/22 Unknown Rx tablet Allergies Allergy/AdvReac Type Severity Reaction Status Date / Time Penicillins Allergy Mild breaks out Verified 02/01/22 14:30 in rash PFSH Acute PFSH: Medical History Depression DM neuropathy, painful DM w/o complication type II, uncontrolled HTN (hypertension), benign Hyperlipemia, mixed Lupus He reports history of lupus diagnosed by Dr. Cortes, though there is no record of this. Psychiatric care Surgical History History of back surgery Family History Other Lupus Social History Smoking and tobacco status: former smoker Quit status (tobacco): has quit using tobacco Year quit tobacco: 1980s Former quit date comment: 1ppd x 2 years Alcohol intake: never Vitals/I&O/Wt Last Vital Signs Temp 98.5 F 02/04/22 13:29 Pulse 68 02/04/22 17:32 Resp 15 02/04/22 17:30 BP 128/74 02/04/22 17:30 Pulse Ox 94 02/04/22 17:32 Weight last 48 hrs Weight 99.79 kg Physical Exam Const: COMMON NORMALS: patient oriented x3 HENMT: COMMON NORMALS: normocephalic and atraumatic HEAD & SCALP: normocephalic and atraumatic Eye: GENERAL EYE: appearance normal, both eyes and all related structures Chest: CHEST: Yes Symmetrical chest wall rise Resp: COMMON NORMALS: normal respiratory effort, No retractions, No use of ac cessory muscles and clear to auscultation bilaterally EFFORT & INSPECTION: Yes symmetric chest movement AUSCULTATION: clear to auscultation bilaterally Cardio: COMMON NORMALS: regular rate, regular rhythm, S1 normal heart sound present, S2 normal heart sound present, No gallops present (Cardio), No murmurs present (Cardio), No rub (Cardio) and Peripheral pulses 2+ throughout RATE: regular rate RHYTHM: regular rhythm HEART SOUNDS: S1 normal heart sound present and S2 normal heart sound present PERIPHERAL PULSES: Peripheral pulses 2+ throughout GI: COMMON NORMALS: Normal to inspection, nondistended, normoactive bowel sounds present, Soft to palpation, non-tender, No hepatosplenomegaly present and no masses AUSCULTATION: Yes normoactive bowel sounds PALPATION: Yes Soft to palpation and Yes No hepatosplenomegaly present RECTAL EXAM: Yes deferred Extremity: COMMON NORMALS: no clubbing, cyanosis or edema and no pedal edema Neuro: COMMON NORMALS: patient oriented x3 Data : 02/04/22 14:40 02/04/22 14:40 A&P Assessment and plan (1) Obstructive sleep apnea: Status: Acute (2) DM neuropathy, painful: Status: Acute (3) Hypertension: Status: Acute (4) Chest pain: Status: Acute (5) Abnormal stress test: Status: Acute (6) Unstable angina: Status: Acute Plan 57 year old male with past medical history of hypertension diabetes came in with chief complaint of dizziness,generalized weakness, fatigue which started a week back and since then has progressively worsened, he is also complaining of left- sided substernal chest pain radiating to his armpit sharp in nature relieved with nitro as well as morphine started since this Tuesday accompanied with diaphoresis. Assessment: Unstable angina: Patient came in with chief complaint of typical cardiac chest pain risk factors include hypertension diabetes obesity. 2D echo:Normal left ventricular size and systolic function, EF 71 %. No RWMA, ?regional wall motion abnormalities. Grade I/IV diastolic ?dysfunction (abnormal relaxation filling pattern), normal to ?mildly elevated filling pressures. ?Mild mitral annular calcification. Thickened mitral valve. ?There is no pericardial effusion. Nuclear stress test Monitor EKG Telemetry monitoring TSH Received 1 dose of therapeutic Lovenox Continue aspirin statin, Imdur, sublingual nitro as needed N.p.o. after midnight Schedule for coronary angiogram in the a.m. Cardiology on board Hypertension: Will hold lisinopril for now anticipating cath in the a.m. Currently blood pressure is fairly well controlled Monitor BP Diabetes: SSI FSG Carb consistent diet CODE STATUS: Full code DVT prophylaxis: On Lovenox Attestations Medical Necessity Statement*: Patient is to be in hospital for management of chest pain. Time Spent in Patient Care: Greater than 35 minutes (>than 50% of time spent in counselling and/or direct pt care on unit) . Coding Level of Care Code Acute Manager Ship for Chg Fwd Exam Comprehensive Diagnoses Obstructive sleep apnea G47.33 DM neuropathy, painful E11.40 Hypertension I10 Chest pain R07.9 Abnormal stress test R94.39 Unstable angina I20.0
--- NOTE | 2022-02-04 18:43 | P.CONIM_ITS ---
Providers/Reason For Consult Consulting Physician/Specialty*: DAJA Yao MD/audiology Reason for Consult*: Patient with chest pain/abnormal recent myocardial perfusion imaging Requesting Physician: Dr. Moncada Attending Physician: Trev Moncada MD History of Present Illness History of Present Illness Tab Duke is a 57 year old male wiith multiple risk factors for coronary disease, who was recently discharged in the hospital was brought back to the emergency room today with complaints of an episode of chest pain. This patient was discharged in the hospital 2 days ago when he was admitted for a prolonged episode of chest pain. .? Myocardial infarction was ruled out.? He had a myocardial perfusion imaging today which revealed a small area of myocardial scarring with a possible rosalio-infarction ischemia. The implications of the test results are discussed with the patient in detail. The option of doing a cardiac colorization versus optimizing the medical treatment were discussed. Patient wanted to try the medications for a while. He was discharged home on aspirin, beta-tre, statin and nitrates. According the patient, since the hospital discharge, he had a few episodes of tight feeling in the chest associate with some shortness of breath. The symptoms lasted for few minutes and then spontaneously subsided. He also was feeling very weak and tired since hospital discharge. This morning around 11:00, while he was at home, started having pain in the upper substernal region. He described as a pressure-like pain radiating across the chest and also to the both arms. Intensity of the pain was moderate. He was found to be extremely pale and somewhat short of breath with the symptoms. Apparently lasted for several minutes. For these complaints he was brought back to the emergency room. Patient had no other associated symptoms or radiation of pain. Chest tightness/heaviness either lasted for couple of hours. In the emergency room, he received IV morphine and p.o. aspirin. His symptoms gradually subsided. He is admitted to hospital for further evaluation management. He has a longstanding history of diabetes at least the last 10 years.? He had a 3 is episodes of CVAs.? The first episode of CVA was in 2016.? Second episode was in 2019 and the last one was in October of this year.? Does have residual right upper extremity weakness, some speech disturbance and memory problem.? The exact etiology of the stroke is not clear at this time.? 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 He also is known to have high blood pressure and dyslipidemia.? No history for peripheral artery disease, kidney disease or liver disease.? No bleeding disorders. He has a longstanding history of COPD and sleep apnea.? He is not able to use a CPAP machine . Denies any smoking abuse.? Occasional alcohol intake.? His mother had a myocardial infarction in her 60s.? No other relevant family history. Review of Systems Narrative: CONSTITUTIONAL: No fever or chills. Patient has been complaining of extreme fatigue and tiredness since the hospital discharge. EYES: No blurring of vision or other visual disturbances lately. ENT: No hoarseness of voice, auditory disturbances or sore throat. CARDIOVASCULAR: As mentioned above. RESPIRATORY: No significant cough. GASTROINTESTINAL: No hematemesis or melena. GENITOURINARY: No dysuria or hematuria. INTEGUMENTARY: No skin rashes or history of skin cancer. NEURO: History of recurrent CVAs. PSYCHIATRIC: No history of psychosis or major depression. HEMATOLOGIC: No bleeding disorders or significant anemia. ENDOCRINE: No history of polyuria or polydipsia. MUSCULOSKELETAL: History of degenerative joint disease ALLERGY/IMMUNOLOGY: As mentioned above. Medications/Allergies Home Medications Medication Instructions Recorded Confirmed Last Taken Type albuterol sulfate 90 mcg/actuation 2 puff INHALATION Q6H PRN #6.7 g 05/25/21 02/04/22 Unknown Rx aerosol inhaler (ProAir HFA) pen needle, diabetic 29 gauge x #100 ea 05/25/21 02/04/22 Unknown Rx 1/2 (Comfort EZ Pen [place]) amlodipine 10 mg tablet 10 mg PO QAM 02/01/22 02/04/22 02/04/22 History gabapentin 800 mg tablet 800 mg PO BID 02/01/22 02/04/22 02/04/22 History glipizide 5 mg tablet, extended 5 mg PO QAM 02/01/22 02/04/22 02/04/22 History release 24 hr insulin glargine 100 unit/mL (3 40 unit SUBCUT BEDTIME 02/01/22 02/04/22 02/03/22 History mL) subcutaneous pen (Lantus Solostar U-100 Insulin) liraglutide 0.6 mg/0.1 mL (18 mg/3 1.2 mg SUBCUT BEDTIME 02/01/22 02/04/22 02/03/22 History mL) subcutaneous pen injector (Victoza 2-Matthew) lisinopril 40 mg tablet 40 mg PO QAM 02/01/22 02/04/22 02/04/22 History metformin 1,000 mg tablet 1,000 mg PO BID 02/01/22 02/04/22 02/04/22 History metformin 500 mg tablet 500 mg PO DAILY PRN 02/01/22 02/04/22 02/04/22 History metoprolol tartrate 100 mg tablet 100 mg PO QAM 02/01/22 02/04/22 02/04/22 History quetiapine 50 mg tablet 50 mg PO BEDTIME 02/01/22 02/04/22 02/03/22 History ropinirole 4 mg tablet 8 mg PO BEDTIME 02/01/22 02/04/22 02/03/22 History venlafaxine 75 mg capsule,extended 75 mg PO BEDTIME 02/01/22 02/04/22 02/03/22 History release 24 hr aspirin 81 mg capsule 81 mg PO DAILY #90 cap 02/02/22 02/04/22 02/04/22 Rx atorvastatin 40 mg tablet 40 mg PO BEDTIME #90 tab 02/02/22 02/04/22 02/03/22 Rx dextromethorphan-guaifenesin 10 10 ml PO Q4H PRN #237 ml 02/02/22 02/04/22 Unknown Rx mg-100 mg/5 mL oral syrup isosorbide mononitrate 30 mg 30 mg PO DAILY #90 tab 02/02/22 02/04/22 02/04/22 Rx tablet,extended release 24 hr nitroglycerin 0.4 mg sublingual 0.4 mg SUBLINGUAL Q5M PRN #20 tab 02/02/22 02/04/22 Unknown Rx tablet Allergies Allergy/AdvReac Type Severity Reaction Status Date / Time Penicillins Allergy Mild breaks out Verified 02/01/22 14:30 in rash PFSH Acute PFSH: Medical History (Updated 02/04/22 @ 22:27 by Lj Yao MD) Depression DM neuropathy, painful DM w/o complication type II, uncontrolled HTN (hypertension), benign Hyperlipemia, mixed Lupus He reports history of lupus diagnosed by Dr. Cortes, though there is no record of this. Psychiatric care Surgical History History of back surgery Family History Other Lupus Social History Smoking and tobacco status: former smoker Quit status (tobacco): has quit using tobacco Year quit tobacco: Former quit date comment: 1ppd x 2 years Alcohol intake: never Vitals/I&O/Wt Last Vital Signs Temp 98.5 F 02/04/22 13:29 Pulse 68 02/04/22 17:32 Resp 15 02/04/22 17:30 BP 128/74 02/04/22 17:30 Pulse Ox 94 02/04/22 17:32 Weight last 48 hrs Weight 220 lb Physical Exam Narrative: GENERAL: The patient is alert and oriented times three. Not in any acute distress. HEENT: No significant pallor, icterus or lymphadenopathy.Oral cavity: There are no mucous membrane lesions. Fundus examination: Fundus is not visualized NECK: Trachea appears to be central. No masses noted. No JVD or thyromegaly appreciated. RESPIRATORY: Chest is symmetrical. No intercostals muscle retraction or any accessory muscle activation. There is no chest wall tenderness. Breath sounds are heard bilaterally. No rales or rhonchi heard. No evidence of any cons olidation. BREASTS: Deferred. HEART: The heart sounds are normal. No S3 or S4. No significant murmurs. No pericardial rub ABDOMEN: No vessel pulsations or distention. No tenderness. No organomegaly appreciated. Bowel sounds are normally heard. : Deferred. RECTAL: Deferred. LYMPHATIC: No lymphadenopathy noted in the neck. EXTREMITIES: No edema or cyanosis. No clubbing. MUSCULOSKELETAL: No acute joint deformities or swelling SKIN: There are no significant rashes or ecchymosis NEUROPSYCHIATRIC: The patient is alert and oriented x3. Appears to be in a good mood. No tremors or rigidity noted. Data : 02/04/22 14:40 02/04/22 14:40 Other Labs: Laboratory Last Values WBC 11.4 10^3/uL (4.0-10.0) H 02/04/22 14:40 RBC 4.95 10^6/uL (4.1-5.3) 02/04/22 14:40 Hgb 14.4 g/dL (11.7-16.6) 02/04/22 14:40 Hct 44.5 % (42.0-52.0) 02/04/22 14:40 MCV 89.9 fl (80-94) 02/04/22 14:40 MCH 29.1 pg (28.0-34.0) 02/04/22 14:40 MCHC 32.4 g/dL (30.0-36.0) 02/04/22 14:40 RDW 13.7 % (12.1-15.1) 02/04/22 14:40 Plt Count 242 10^3/cmm (130-400) 02/04/22 14:40 MPV 10.6 fL (7.4-10.4) H 02/04/22 14:40 Neut % (Auto) 69.2 % 02/04/22 14:40 Lymph % (Auto) 21.5 % 02/04/22 14:40 [place] % (Auto) 6.7 % 02/04/22 14:40 Eos % (Auto) 1.7 % 02/04/22 14:40 Baso % (Auto) 0.3 % 02/04/22 14:40 Neut # (Auto) 7.91 10^3/uL (1.8-7.7) H 02/04/22 14:40 Lymph # (Auto) 2.5 10^3/uL (0.8-4.8) 02/04/22 14:40 [place] # (Auto) 0.8 10^3/uL (0.2-0.9) 02/04/22 14:40 Eos # (Auto) 0.2 10^3/uL (0.0-0.8) 02/04/22 14:40 Baso # (Auto) 0.0 10^3/uL (0.0-0.1) 02/04/22 14:40 Nucleated RBC % (auto) 0 % 02/04/22 14:40 Nucleated RBCs # 0.0 /100WBC 02/04/22 14:40 Sodium 140 mmol/L (136-145) 02/04/22 14:40 Potassium 4.7 mmol/L (3.5-5.1) 02/04/22 14:40 Chloride 100 mmol/L (98-107) 02/04/22 14:40 Carbon Dioxide 30 mmol/L (22-29) H 02/04/22 14:40 Anion Gap 14.7 (5-19) 02/04/22 14:40 BUN 13 mg/dL (6-20) 02/04/22 14:40 Creatinine 0.6 mg/dL (0.7-1.2) L 02/04/22 14:40 GFR Calculation 139.9 mL/min (90-130) H 02/04/22 14:40 Glucose 132 mg/dL (65-115) H 02/04/22 14:40 Calculated Osmolality 292 mOsm/kg (285-295) 02/04/22 14:40 Calcium 10.1 mg/dL (8.5-10.5) 02/04/22 14:40 Troponin T Baseline 26 ng/L (0-15) H 02/04/22 14:40 Troponin T 120 Minute 21.33 ng/L (0-15) H 02/04/22 16:10 Delta Troponin T -4.67 ABS# (0-10) L 02/04/22 16:10 Myocardial perfusion imaging: My impression: Myocardial perfusion imaging: On 02/02/2022 ? ? ? My impression: . Abnormal myocardial perfusion imaging with small sized prior infarct with ?rosalio-infarct ischemia in left circumflex artery territory ?2. LV systolic function is normal EKG 1: ? ? ? My Interpretation: The EKG showed normal sinus rhythm with some nonspecific changes in the high lat eral leads.? Borderline first-degree AV block.? Otherwise unremarkable. ? ? ? EKG computer-generated impression: Chest X-Ray? 02/01/22 13:18 IMPRESSION: No acute findings. Repeat chest x-ray from today 02/04/2022 Normal cardiac silhouette with no lung infiltrates. No acute pathology noted. ? Echo: My impression: Done on 02/02/2022 normal left ventricular size and systolic function, EF 71 %. No ?regional wall motion abnormalities. Grade I/IV diastolic ?dysfunction (abnormal relaxation filling pattern), normal to ?mildly elevated filling pressures. ?Mild mitral annular calcification. Thickened mitral valve. ?There is no pericardial effusion. ?Technically difficult study because of the poor ultrasonic ?window. ?No previous study is available for comparison. EKG 1: My Interpretation: Normal sinus rhythm with a normal ST Ts. Normal CO interval and QRS duration. No acute pathology noted. EKG computer-generated impression: Chest X-Ray 02/04/22 14:15 Impression: Negative chest. A&P Assessment and plan (1) Unstable angina: The patient symptoms may assess unstable angina. His EKG is unremarkable. Echocardiogram done on 02/03/2020 was unremarkable. Myocardial perfusion imaging revealed a small area of possible rosalio-infarction ischemia, in the distribution of the left circumflex artery. This needs to be further evaluated. Status: Acute (2) Hypertension: The blood pressure is a stage II. The antihypertensive medications need to be optimized. Status: Acute (3) Obstructive sleep apnea: Patient may continue on the CPAP. Status: Acute (4) Raynaud's phenomenon: Currently has no specific symptoms of Raynaud's phenomenon. Continue on the current treatment measures. Status: Acute (5) Hyperlipemia, mixed: Patient has been taking atorvastatin which may be continued. Status: Acute (6) DM w/o complication type II, uncontrolled: Aggressive management of the diabetes would be appropriate. The blood sugar need to be closely monitored. Status: Acute (7) Abnormal stress test: The abnormal myocardial perfusion is suggestive of myocardial scarring in the distribution of the left circumflex artery with some areas of rosalio-infarction ischemia. Status: Acute Plan Ambulate the patient with recurrent episodes of chest symptoms with multiple risk factors and abnormal myocardial perfusion imaging, in order to further evaluate his coronary status, he requires a cardiac catheterization. The need for the study was discussed with the patient in detail which is understood well. Patient diabetes start on subcu Lovenox, p.o. aspirin, beta-tre and a statin drug. Based on the patient's clinical progress, further recommendations will be made. Thank you for the opportunity to eval this patient make these recommendations. Patient is now wanting to go ahead with a cardiac evaluation, to further evaluate his coronary status. The risk of bleeding, hematoma, vascular injury, myocardial infarction, CVA, renal failure and other concomitant complications were explained in detail. The patient understood these well and consented to proceed. 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
[2022-02-04] MEDS: sodium chloride 0.9% 1,000 ML 75 ML IV (20:06)
[2022-02-04] MEDS: ropinirole 2 mg Tablet 8 MG PO (20:08)
[2022-02-04] MEDS: venlafaxine ER (24HR) 75 mg Capsule PO (20:09)
[2022-02-04] MEDS: quetiapine 25 mg Tablet 50 MG PO (20:09)
[2022-02-04] MEDS: atorvastatin 40 mg Tablet PO (20:09)
--- NOTE | 2022-02-04 20:15 | ECG_ITS ---
[facility] Test Date: 2022-02-04 Pat Name: Tab Duke Department: Room: 255 Gender: Male Claims Support Specialist: : [id number] Requested By: Raine Chester Order Number: [id number] Reading MD: Lj Yao M.D. Measurements Intervals [place] Rate: 71 P: 67 NE: 204 QRS: 55 QRSD: 93 T: 88 QT: 392 QTc: 426 Interpretive Statements SINUS RHYTHM NONSPECIFIC T-WAVE ABNORMALITY Compared to ECG 02/04/2022 16:14:40 T-wave abnormality now present Electronically Signed On 02-05-2022 18:22:00 CDT by Lj Yao M.D. [id number]
[2022-02-04 20:44] LABS: Troponin 5 6HR 20.72 ng/L (0-15)
[2022-02-04 20:47] LABS: Troponin 5 6HR Delta -5.28 ng/L (0-12)
[2022-02-04 21:11] LABS: Glucose Point of Care 202 mg/dL (70-110)
[2022-02-05] VITALS (41 sets, daily range): BP systolic 111–171; BP diastolic 71–102; PULSE 66–96; RESP 12–30; TEMP 36.3–36.8; O2SAT 91–97
[2022-02-05 05:14] LABS: Basophils % 0.2 %; Eosinophils # 0.2 10^3/uL (0.0-0.8); Eosinophils % 1.3 %; Hemoglobin 12.6 g/dL (11.7-16.6); Lymphocytes # 2.7 10^3/uL (0.8-4.8); Lymphocytes % 21.3 %; Mean Corpuscular HGB Conc 31.5 g/dL (30.0-36.0); Mean Corpuscular Hemoglobin 28.5 pg (28.0-34.0); Mean Corpuscular Volume 90.5 fl (80-94); Mean Platelet Volume 10.3 fL (7.4-10.4); Monocytes # 0.9 10^3/uL (0.2-0.9); Monocytes % 7.1 %; Neutrophils # 8.86 10^3/uL (1.8-7.7); Neutrophils % 69.7 %; Nucleated Red Blood Cells % 0 %; Platelet Count 189 10^3/cmm (130-400); Red Blood Count 4.42 10^6/uL (4.1-5.3); Red Cell Distribution Width 13.7 % (12.1-15.1); White Blood Count 12.7 10^3/uL (4.0-10.0)
[2022-02-05] MEDS: metoprolol tartrate 50 mg Tablet 100 MG PO (05:17)
[2022-02-05] MEDS: amlodipine 10 mg Tablet PO (05:17)
[2022-02-05 05:49] LABS: Anion Gap 12.9 (5-19); Blood Urea Nitrogen 14 mg/dL (6-20); Calcium 8.3 mg/dL (8.5-10.5); Carbon Dioxide 26 mmol/L (22-29); Chloride 103 mmol/L (98-107); Glomerular Filtration Rate 139.9 mL/min (90-130); Glucose 156 mg/dL (65-115); Osmolality Calculated 290 mOsm/kg (285-295); Potassium 3.9 mmol/L (3.5-5.1); Sodium 138 mmol/L (136-145); Thyroid Stimulating Hormone 1.53 uIU/mL (0.27-4.20)
[2022-02-05 06:22] LABS: Glucose Point of Care 85 mg/dL (70-110)
[2022-02-05] MEDS: aspirin 81 mg EC Tablet PO (07:47)
[2022-02-05] MEDS: gabapentin 400 mg Capsule 800 MG PO ×2 (07:47→17:00)
[2022-02-05] MEDS: pantoprazole DR 40 mg Tablet PO (07:47)
[2022-02-05] MEDS: isosorbide mononitrate ER 30 mg Tablet PO (07:47)
[2022-02-05] MEDS: sodium chloride 0.9% 1,000 ML 75 ML IV (07:49)
--- NOTE | 2022-02-05 10:45 | P.PN_ITS ---
Subjective Subjective: The patient had few episodes of chest tightness through the night. Density of the pain was mild. He did not require any sublingual nitro. The vital signs remained stable. Medications: Medication Review Details: Current Medications Acetaminophen (Acetaminophen 325 Mg Tablet) 650 mg PO Q6H PRN PRN Reason: Mild/Mod Pain Or Temp >/= 101 Albuterol Sulfate (Albuterol 8 Gm Mdi) 2 puff INHALATION Q6H PRN PRN Reason: shortness of breath or wheezing Amlodipine Besylate (Amlodipine 10 Mg Tablet) 10 mg PO QAM [facility] Last Admin: 02/05/22 05:17 Dose: 10 mg Documented by: Aspirin (Aspirin 81 Mg Ec Tablet) 81 mg PO DAILY [facility] Last Admin: 02/05/22 07:47 Dose: 81 mg Documented by: Atorvastatin Calcium (Atorvastatin 40 Mg Tablet) 40 mg PO BEDTIME [facility] Last Admin: 02/04/22 20:09 Dose: 40 mg Documented by: Dextrose (Dextrose 50% Syringe 50 Ml) 25 ml IVP ONCE PRN; Protocol PRN Reason: hypoglycemia protocol Dextrose (Dextrose 50% Syringe 50 Ml) 50 ml IVP PRN PRN; Protocol PRN Reason: hypoglycemia protocol Enoxaparin Sodium (Enoxaparin 100 Mg/Ml Syringe) 100 mg 1 mg/kg (100 mg) SUBCUT ONCE [facility] Gabapentin (Gabapentin 400 Mg Capsule) 800 mg PO BID [facility] Last Admin: 02/05/22 07:47 Dose: 800 mg Documented by: Glucagon (Glucagon 1 Mg/Ml Inj 1 Ml) 1 mg IM ONCE PRN; Protocol PRN Reason: Adult Acute Hypoglycemia Prot. Guaifenesin/Dextromethorphan (Guaifenesin-Dextromethorphan Udc 10 Ml) 10 ml PO Q4H PRN PRN Reason: Cough Sodium Chloride (Sodium Chloride 0.9%) 1,000 mls @ 75 mls/hr IV .[id number] [facility] Last Admin: 02/05/22 07:49 Dose: 75 mls/hr Documented by: Dextrose (D5w) 500 mls @ 100 mls/hr IV ONCE PRN; Protocol PRN Reason: Adult Acute Hypoglycemia Prot Insulin Human Lispro (Insulin Lispro 100 Unit/1 Ml) 0 unit SUBCUT TIDWM [facility]; Protocol Last Admin: 02/05/22 07:10 Dose: Not Given Documented by: Isosorbide Mononitrate (Isosorbide Mononitrate Er 30 Mg Tablet) 30 mg PO DAILY [facility] Last Admin: 02/05/22 07:47 Dose: 30 mg Documented by: Metoprolol Tartrate (Metoprolol Tartrate 50 Mg Tablet) 100 mg PO QAM [facility] Last Admin: 02/05/22 05:17 Dose: 100 mg Documented by: Morphine Sulfate (Morphine 4 Mg/Ml Sdv 1 Ml) 2 mg IVP Q4H PRN PRN Reason: SEVERE PAIN Nitroglycerin (Nitroglycerin 0.4 Mg Sublingual Tablet) 0.4 mg SUBLINGUAL Q5M PRN PRN Reason: CHEST PAIN Nitroglycerin (Nitroglycerin 0.4 Mg Sublingual Tablet) 0.4 mg SUBLINGUAL Q5M PRN PRN Reason: Chest Pain Ondansetron HCl (Ondansetron 2 Mg/Ml Sdv 2 Ml) 4 mg IVP Q8H PRN PRN Reason: vomiting, or N/V if npo Pantoprazole Sodium (Pantoprazole Dr 40 Mg Tablet) 40 mg PO DAILY [facility] Last Admin: 02/05/22 07:47 Dose: 40 mg Documented by: Quetiapine Fumarate (Quetiapine 25 Mg Tablet) 50 mg PO BEDTIME [facility] Last Admin: 02/04/22 20:09 Dose: 50 mg Documented by: Ropinirole HCl (Ropinirole 2 Mg Tablet) 8 mg PO BEDTIME [facility] Last Admin: 02/04/22 20:08 Dose: 8 mg Documented by: Venlafaxine HCl (Venlafaxine Er (24hr) 75 Mg Capsule) 75 mg PO BEDTIME [facility] Last Admin: 02/04/22 20:09 Dose: 75 mg Documented by: Vitals/I&O/Wt Last Vital Signs Temp 98.2 F 02/05/22 07:17 Pulse 78 02/05/22 08:44 Resp 16 02/05/22 07:17 BP 122/92 02/05/22 07:17 Pulse Ox 95 02/05/22 08:44 02/04/22 02/05/22 02/05/22 22:59 06:59 14:59 Intake Total 240 / 240 878.75 / 878.75 Balance 240 / 240 878.75 / 878.75 Weight last 48 hrs Weight 220 lb Physical Exam Narrative: GENERAL: The patient is alert and oriented times three. Not in any acute distress. HEENT: No significant pallor, icterus or lymphadenopathy.Oral cavity: There are no mucous membrane lesions. NECK: Trachea appears to be central. No masses noted. No JVD or thyromegaly appreciated. RESPIRATORY: Chest is symmetrical. No intercostals muscle retraction or any accessory muscle activation. There is no chest wall tenderness. Breath sounds are heard bilaterally. No rales or rhonchi heard. No evidence of any consolidation. BREASTS: Deferred. HEART: The heart sounds are normal. No S3 or S4. No significant murmurs. No pericardial rub ABDOMEN: No vessel pulsations or distention. No tenderness. No organomegaly appreciated. Bowel sounds are normally heard. : Deferred. RECTAL: Deferred. LYMPHATIC: No lymphadenopathy noted in the neck. EXTREMITIES: No edema or cyanosis. No clubbing. MUSCULOSKELETAL: No acute joint deformities or swelling SKIN: There are no significant rashes or ecchymosis NEUROPSYCHIATRIC: The patient is alert and oriented x3. Appears to be in a good mood. No tremors or rigidity noted. Data : 02/05/22 04:50 02/05/22 04:50 A&P Assessment and plan (1) Unstable angina: The patient symptoms may assess unstable angina. His EKG is unremarkable. Echocardiogram done on 02/03/2020 was unremarkable. Myocardial perfusion imaging revealed a small area of possible rosalio-infarction ischemia, in the distribution of the left circumflex artery. This needs to be further evaluated. Myocardial infarction is ruled out. In view of the patient's recurrent episodes of chest pain requiring hospital admission, it would be appropriate to go ahead with a cardiac catheterization, to further evaluate the coronary status. The risk of bleeding, hematoma, vascular injury, myocardial infarction, CVA, renal failure and other concomitant complications were explained in detail. Patient understood this well and consented to proceed. We may go ahead and schedule the cardiac catheterization as soon as possible. Based on the results, further management decisions will be made Status: Acute (2) Hypertension: The blood pressure is fairly under control. We may continue on the current medication for the time being. Status: Acute (3) Obstructive sleep apnea: Patient may continue on the CPAP. Status: Acute (4) Raynaud's phenomenon: Currently has no specific symptoms of Raynaud's phenomenon. Continue on the current treatment measures. Status: Acute (5) Hyperlipemia, mixed: Patient has been taking atorvastatin which may be continued. Status: Acute (6) DM w/o complication type II, uncontrolled: Aggressive management of the diabetes would be appropriate. The blood sugar need to be closely monitored. Status: Acute (7) Abnormal stress test: Cardiac catheterization today. Based on the results, further recommendations will be made. Status: Acute Plan Patient is scheduled for the cardiac catheterization this afternoon. We will continue current medication for the time being. Based on the angiogram findings, further recommendations will be made. Attestations Medical Necessity Statement*: Patient requires continued hospital stay for close monitoring and further management Coding Level of Care Code Acute Inspector for g Fwd History Detailed Exam Detailed Medical Decision Making Moderate Complexity Diagnoses Unstable angina I20.0 Hypertension I10 Obstructive sleep apnea G47.33 Raynaud's phenomenon I73.00 Hyperlipemia, mixed E78.2 DM w/o complication type II, uncontrolled E11.65 Abnormal stress test R94.39
--- NOTE | 2022-02-05 10:55 | W.PM.OPSUD ---
Surgery/Procedure H&P Update DATE OF PROCEDURE: February 05, 2022 DATE H&P PERFORMED: 02/04/22 H&P UPDATE INFORMATION: I have reviewed H&P completed within last 30 days, I have examined patient prior to procedure and No changes to prior documentation PRIMARY INDICATION FOR PROCEDURE: Unstable angina PLANNED PROCEDURE: Left heart catheterization with left and right coronary angiogram, LV angiogram and possible PCI PHYSICAL EXAM: alert, oriented x 3, clear to auscultation bilaterally and regular rate & rhythm AIRWAY EVAL/ANESTHESIA PLAN: normal airway, see other exam findings, ASA III, Monitored Anesthesia, Local Anesthesia, Risks, benefits & alternatives of sedation and/or procedure discussed and Patient agrees to continue as planned
--- NOTE | 2022-02-05 11:35 | XACV_ITS ---
Exam Room: [facility] Ht: 170 cm Wt: 100 kg BSA: 2.21 m2 Gender: Male : 1965 Exam Priority: Routine Procedure(s): Procedure Description: Diagnostic procedure Procedure Description: Left Heart Catheterization Procedure Description: Left ventriculography Procedure Description: Coronary Angiography Maximilian GOMES; Diagnostic Cath Status: Elective Diagnostic Findings * The left main is a medium caliber vessel with no significant stenotic lesions. * Left anterior descending artery is a medium to large caliber vessel which appears to wrap around the LV apex. Minimal intimal irregularities are noted at the mid segment. No significant stenotic lesions were noted. * The left circumflex artery is a medium caliber nondominant vessel with no significant stenotic lesion. * The the right coronary artery is a medium to large caliber dominant vessel with minimal intimal irregularities. No significant stenotic lesions. Conclusions 1. 57-year-old white male with history of hypertension, diabetes and recurrent CVAs, presents with prolonged episodes of chest pains associated with profuse sweating and shortness of breath. Myocardial perfusion imaging revealed a small area of possible rosalio-infarction ischemia. In view of the patient's recurrent episodes of chest pains, requiring hospital admissions, in order to further evaluate his coronary status, a cardiac catheterization was recommended. Patient underwent left heart catheterization with left and right coronary angiogram and LV angiogram. The findings are as follows.. 2. coronary angiogram and LV angiogram today. The findings are as follows. 3. No significant obstructive coronary artery disease. Minimal intimal irregularities in the LAD and RCA. Elevated LVEDP of 26 mmHg .mild diffuse hypokinesis of the anteroapical region. LV ejection fraction of 50%.. Diagnostic RX Recommendation: medical therapy and/or counseling LV EDP: 26 mmHg Ventriculography Ejection Fraction: 50.0 % Left Ventriculography Findings: * LV gram was performed in the BARGER projection. The LV cavity appears to be normal size. There is mild diffuse hypokinesia of the anteroapical region. The overall LV ejection fraction was around 50%. No filling defects were noted. No significant mitral valve prolapse or mitral regurgitation. Pressures Phase:Rest AO : 113 / 87 ( 100 ) @ 1:17:00 PM 155 / 96 ( 122 ) @ 1:28:00 PM 155 / 97 ( 122 ) @ 1:28:00 PM LV : 130 / 1 / 26 @ 1:26:00 PM 153 / 11 / 39 @ 1:27:00 PM 152 / 13 / 39 @ 1:28:00 PM Valves Phase:DefaultPhase AV : 0.0 @ 12:34:22 PM 0.0 @ 12:34:22 PM AV Mean Gradient: 0.0 @ 12:34:22 PM Clinical Evaluation EBL: 5mL-10mL Procedural Details Procedure Consent Obtained. Admit Source: In Patient. Pre-Procedure Time Out. Identified patient by full name and date of as verbalized by the patient/guarantor. Does the consent match the physician's order: Yes. Accurate & Complete Informed Consent: Yes. Inpatient/Outpatient History & Physical on Chart: Yes. If H&P is completed, is and addenduem needed: N/A; If yes, is the addendum complete: N/A. Visualize and Verify Site with Patient/Guarantor: N/A. Relevant Radiology Images available: N/A. Pre-op teaching completed and patient verbalized understanding. The risks, benefits, and alternatives of sedation and/or procedure were discussed by physician. The patient agrees to continue. Procedure started. [facility] Clinical Fraility Score: 3: Managing Well. Gauge Checker Indications: Worsening Angina. Chest Pain Symptom Assessment: Atypical Angina. Correct patient, site and procedure confirmed by cath team. Current diagnosis: Chest Pain. PERRLA. Strong, equal hand animal hospital clerk bilaterally. Lungs clear x 5 lobes. IV Site on Arrival: 20 gauge in the right anticubital. IV Fluids: 0.9% NaCl at KVO. 300 mL infused prior to landscaping and groundskeeping laborer. Pre Procedural Pulses: bilateral radial was 2+. Pre Procedural Pulses: bilateral dorsalis pedis was 2+. Oxygen started at 2liters/min via nasal canula. right groin was prepped with chloroprep then draped in the usual sterile fashion. right radial was prepped with chloroprep then draped in the usual sterile fashion. Physician notified. Baseline sample Acquired. HR: 73 BPM. Rosalva Houston RN orientee circulating case with Ani Lawton RN. Physician arrived. Physician scrubbed in. Immediate Pre-Procedure Time Out. Correct Patient: Yes; Correct Procedure: Yes; Correct Site: Yes; Correct Patient Position: Yes; Correct Supplies: Yes; Dried Flammable Prep: Yes; Blood Products Available: N/A;. Lidocaine 1% infiltrated to the right radial. Arterial access obtained. A 5 prydeinig Mele catheter in over wire. Multiple views taken of left coronary artery. Catheter removed over the standard wire. A 5 prydeinig JR4 catheter in over wire. Multiple views taken of right coronary artery. Catheter removed over the standard wire. A 5 prydeinig Angled Pig catheter in over wire. EDP Sample taken: LV 130/1,26; HR: 74 BPM; SpO2: 96%. LV gram performed in BARGER @ 10 mL/second for a total of 30 mL. EDP Sample taken: LV 153/11,39; HR: 85 BPM; SpO2: 96%. Pullback taken: LV 152/13,39; AO 155/96(122); Mean: 0mmHg, Peak to Peak: 0mmHg, SEP: 6sec/min; HR: 79 BPM; SpO2: 96%. Catheter and wire out. Patient's family updated. Physician scrubbed out. A TR Band was successful obtaining hemostatsis at the Right Radial artery insertion site. Post Procedure: Pulses reassessed and unchanged. PERRLA. Strong, equal hand animal hospital clerk bilaterally. No VTE prophylaxis required. Medication's Wasted: Lidocaine 1% = 4 mL. Medication's Wasted: Nitro = 49.8 mg. Medication's Wasted: Heparin = 1000 u. Medication's Wasted: Other = Fentanyl 50 mcg. Medication's Wasted: Other = Versed1 mg. Complications: none. Estimated blood loss: 5mL-10mL. Responsiveness - Normal response to verbal stimuli; alert and oriented, PERRLA. Airway - Unaffected, no intervention required; spontaneous ventilation. Circulation: W/N/L, pulses unchanged. Nausea/Vomiting: No. Procedure completed. Post-op diagnosis: Cardiomyopathy. Patient transferred by wheelchair to CPRU. Vital chart was stopped. Access Site Site: Right Radial artery Sheath Size: 6 Fr Hemostasis Method: TR Band Hemostasis Success: Successful Procedure Medications Start: 12:02 PM Stop: 12:02 PM Medication: Fentanyl Amount: 50 mcg Route: I.V. Start: 12:07 PM Stop: 12:07 PM Medication: Versed Amount: 1 mg Route: I.V. Start: 12:11 PM Stop: 12:11 PM Medication: Verapamil Amount: 5 mg Route: I.A. Start: 12:12 PM Stop: 12:12 PM Medication: Nitrogylcerin Amount: 200 mcg Route: I.A. Start: 12:13 PM Stop: 12:13 PM Medication: Heparin Amount: 5000 units Route: I.V. I, the attending physician, have reviewed and verified all procedure medications. Yes, all medications given per verbal order History/Risk Factors Hypertension: Yes Dyslipidemia: Yes Peripheral Arterial Disease (PAD): No Myocardial Infarction (NE): No Obesity: Yes Renal Disease: No Tobacco Use: Former Prior Interventions PCI: No CABG: No Valve Surgery: No Report Signatures Finalized by Dr Lj Yao MD [facility] on 02/05/2022 12:45 PM
[2022-02-05 11:44] LABS: Glucose Point of Care 173 mg/dL (70-110)
--- NOTE | 2022-02-05 12:34 | PC.NURSE ---
Report called to JENNIFER Metcalf, CSU.
--- NOTE | 2022-02-05 13:04 | PC.NURSE ---
received report from laboratory immunologist and med surg. pt arrived a/ox4 from laboratory immunologist. tr band in place. no s/s of complications. vs set for 15. visitor at bedside. late lunch tray ordered. informed dr neff that pt has arrived from laboratory immunologist.
--- NOTE | 2022-02-05 14:31 | P.PN_ITS ---
Subjective Subjective: Patient is complaining of dizziness, particularly when he bends, he also complains of sweating, had mild chest tightness overnight, underwent cardiac cath. Will check orthostatic vitals and every 8H, patient reports blackout at home whenever he bends and stands up. Possibly CT spine, given his history of spine surgery. Medications: Medication Review Details: Current Medications Acetaminophen (Acetaminophen 325 Mg Tablet) 650 mg PO Q6H PRN PRN Reason: Mild/Mod Pain Or Temp >/= 101 Albuterol Sulfate (Albuterol 8 Gm Mdi) 2 puff INHALATION Q6H PRN PRN Reason: shortness of breath or wheezing Amlodipine Besylate (Amlodipine 10 Mg Tablet) 10 mg PO QAM [facility] Last Admin: 02/05/22 05:17 Dose: 10 mg Documented by: Aspirin (Aspirin 81 Mg Ec Tablet) 81 mg PO DAILY [facility] Last Admin: 02/05/22 07:47 Dose: 81 mg Documented by: Atorvastatin Calcium (Atorvastatin 40 Mg Tablet) 40 mg PO BEDTIME [facility] Last Admin: 02/04/22 20:09 Dose: 40 mg Documented by: Dextrose (Dextrose 50% Syringe 50 Ml) 25 ml IVP ONCE PRN; Protocol PRN Reason: hypoglycemia protocol Dextrose (Dextrose 50% Syringe 50 Ml) 50 ml IVP PRN PRN; Protocol PRN Reason: hypoglycemia protocol Enoxaparin Sodium (Enoxaparin 100 Mg/Ml Syringe) 100 mg 1 mg/kg (100 mg) SUBCUT ONCE [facility] Gabapentin (Gabapentin 400 Mg Capsule) 800 mg PO BID [facility] Last Admin: 02/05/22 07:47 Dose: 800 mg Documented by: Glucagon (Glucagon 1 Mg/Ml Inj 1 Ml) 1 mg IM ONCE PRN; Protocol PRN Reason: Adult Acute Hypoglycemia Prot. Guaifenesin/Dextromethorphan (Guaifenesin-Dextromethorphan Udc 10 Ml) 10 ml PO Q4H PRN PRN Reason: Cough Sodium Chloride (Sodium Chloride 0.9%) 1,000 mls @ 75 mls/hr IV .[id number] [facility] Last Admin: 02/05/22 07:49 Dose: 75 mls/hr Documented by: Dextrose (D5w) 500 mls @ 100 mls/hr IV ONCE PRN; Protocol PRN Reason: Adult Acute Hypoglycemia Prot Insulin Human Lispro (Insulin Lispro 100 Unit/1 Ml) 0 unit SUBCUT TIDWM [facility]; Protocol Last Admin: 02/05/22 07:10 Dose: Not Given Documented by: Isosorbide Mononitrate (Isosorbide Mononitrate Er 30 Mg Tablet) 30 mg PO DAILY [facility] Last Admin: 02/05/22 07:47 Dose: 30 mg Documented by: Metoprolol Tartrate (Metoprolol Tartrate 50 Mg Tablet) 100 mg PO QAM [facility] Last Admin: 02/05/22 05:17 Dose: 100 mg Documented by: Morphine Sulfate (Morphine 4 Mg/Ml Sdv 1 Ml) 2 mg IVP Q4H PRN PRN Reason: SEVERE PAIN Nitroglycerin (Nitroglycerin 0.4 Mg Sublingual Tablet) 0.4 mg SUBLINGUAL Q5M PRN PRN Reason: CHEST PAIN Nitroglycerin (Nitroglycerin 0.4 Mg Sublingual Tablet) 0.4 mg SUBLINGUAL Q5M PRN PRN Reason: Chest Pain Ondansetron HCl (Ondansetron 2 Mg/Ml Sdv 2 Ml) 4 mg IVP Q8H PRN PRN Reason: vomiting, or N/V if npo Pantoprazole Sodium (Pantoprazole Dr 40 Mg Tablet) 40 mg PO DAILY [facility] Last Admin: 02/05/22 07:47 Dose: 40 mg Documented by: Quetiapine Fumarate (Quetiapine 25 Mg Tablet) 50 mg PO BEDTIME [facility] Last Admin: 02/04/22 20:09 Dose: 50 mg Documented by: Ropinirole HCl (Ropinirole 2 Mg Tablet) 8 mg PO BEDTIME [facility] Last Admin: 02/04/22 20:08 Dose: 8 mg Documented by: Venlafaxine HCl (Venlafaxine Er (24hr) 75 Mg Capsule) 75 mg PO BEDTIME [facility] Last Admin: 02/04/22 20:09 Dose: 75 mg Documented by: Vitals/I&O/Wt Last Vital Signs Temp 97.4 F L 02/05/22 11:27 Pulse 78 02/05/22 13:00 Resp 16 02/05/22 13:00 BP 125/78 02/05/22 12:45 Pulse Ox 94 02/05/22 12:45 02/04/22 02/05/22 02/05/22 22:59 06:59 14:59 Intake Total 240 / 240 996.75 / 996.75 Balance 240 / 240 996.75 / 996.75 Weight last 48 hrs Weight 99.79 kg Physical Exam Const: COMMON NORMALS: patient oriented x3 HENMT: COMMON NORMALS: normocephalic and atraumatic HEAD & SCALP: normocephalic and atraumatic Eye: GENERAL EYE: appearance normal, both eyes and all related structures Chest: CHEST: Yes Symmetrical chest wall rise Resp: COMMON NORMALS: normal respiratory effort, No retractions, No use of accessory muscles and clear to auscultation bilaterally EFFORT & INSPECTION: Yes symmetric chest movement AUSCULTATION: clear to auscultation bilaterally Cardio: COMMON NORMALS: regular rate, regular rhythm, S1 normal heart sound present, S2 normal heart sound present, No gallops present (Cardio), No murmurs present (Cardio), No rub (Cardio) and Peripheral pulses 2+ throughout RATE: regular rate RHYTHM: regular rhythm HEART SOUNDS: S1 normal heart sound present and S2 normal heart sound present PERIPHERAL PULSES: Peripheral pulses 2+ throughout GI: COMMON NORMALS: Normal to inspection, nondistended, normoactive bowel sounds present, Soft to palpation, non-tender, No hepatosplenomegaly present and no masses AUSCULTATION: Yes normoactive bowel sounds PALPATION: Yes Soft to palpation and Yes No hepatosplenomegaly present RECTAL EXAM: Yes deferred Extremity: COMMON NORMALS: no clubbing, cyanosis or edema and no pedal edema Neuro: COMMON NORMALS: patient oriented x3 Data : 02/05/22 04:50 02/05/22 04:50 A&P Assessment and plan (1) Obstructive sleep apnea: Status: Acute (2) DM neuropathy, painful: Status: Acute (3) Hypertension: Status: Acute (4) Chest pain: Status: Acute (5) Abnormal stress test: Status: Acute (6) Unstable angina: Status: Acute Plan 57 year old male with past medical history of hypertension diabetes came in with chief complaint of dizziness,generalized weakness, fatigue which started a week back and since then has progressively worsened, he is also complaining of left- sided substernal chest pain radiating to his armpit sharp in nature relieved with nitro as well as morphine started since this Tuesday accompanied with diaphoresis. Assessment: Noncardiac chest pain: CAG : ?No significant obstructive coronary artery disease.?Minimal intimal irregularities in the LAD and RCA.? Elevated LVEDP of 26 mmHg .mild diffuse hypokinesis of the anteroapical region. 2D echo:Normal left ventricular size and systolic function, EF 71 %. No RWMA, regional wall motion abnormalities. Grade I/IV diastolic ?dysfunction (abnormal relaxation filling pattern), normal to ?mildly elevated filling pressures. ?Mild mitral annular calcification. Thickened mitral valve. ?There is no pericardial effusion. Nuclear stress test Monitor EKG Telemetry monitoring TSH Received 1 dose of therapeutic Lovenox Continue aspirin statin, Imdur, sublingual nitro as needed Cardiology on board Hypertension: Will hold lisinopril for now anticipating cath in the a.m. Currently blood pressure is fairly well controlled Monitor BP Diabetes: SSI FSG Carb consistent diet CODE STATUS: Full code DVT prophylaxis: On Lovenox Attestations Medical Necessity Statement*: Patient is to be in hospital for evaluation of dizziness. Time Spent in Patient Care: 16 - 35 minutes (>than 50% of time spent in counselling and/or direct pt care on unit) . Coding Level of Care Code Acute Building Associate for Chg Fwd Diagnoses Obstructive sleep apnea G47.33 DM neuropathy, painful E11.40 Hypertension I10 Chest pain R07.9 Abnormal stress test R94.39 Unstable angina I20.0
[2022-02-05] MEDS: insulin lispro 100 unit/1 mL SUBCUT (17:00)
[2022-02-05 17:01] LABS: Glucose Point of Care 209 mg/dL (70-110)
[2022-02-05 20:00] LABS: Glucose Point of Care 212 mg/dL (70-110)
[2022-02-05] MEDS: atorvastatin 40 mg Tablet PO (20:05)
[2022-02-05] MEDS: venlafaxine ER (24HR) 75 mg Capsule PO (20:05)
[2022-02-05] MEDS: ropinirole 2 mg Tablet 8 MG PO (20:05)
[2022-02-05] MEDS: quetiapine 25 mg Tablet 50 MG PO (20:05)
[2022-02-05] MEDS: temazepam 15 mg Capsule PO (20:06)
[2022-02-06] VITALS (14 sets, daily range): BP systolic 90–170; BP diastolic 43–96; PULSE 73–100; RESP 13–25; TEMP 36.2–36.5; O2SAT 87–95
[2022-02-06] MEDS: morphine 4 mg/mL SDV 1 mL 2 MG IVP (00:01)
[2022-02-06 04:43] LABS: Basophils % 0.1 %; Eosinophils # 0.1 10^3/uL (0.0-0.8); Eosinophils % 0.5 %; Hematocrit 39.9 % (42.0-52.0); Hemoglobin 12.8 g/dL (11.7-16.6); Lymphocytes # 1.4 10^3/uL (0.8-4.8); Lymphocytes % 10.1 %; Mean Corpuscular HGB Conc 32.1 g/dL (30.0-36.0); Mean Corpuscular Hemoglobin 28.4 pg (28.0-34.0); Mean Corpuscular Volume 88.7 fl (80-94); Mean Platelet Volume 10.9 fL (7.4-10.4); Monocytes % 7.3 %; Neutrophils # 11.26 10^3/uL (1.8-7.7); Neutrophils % 81.4 %; Nucleated Red Blood Cells % 0 %; Platelet Count 194 10^3/cmm (130-400); Red Cell Distribution Width 13.3 % (12.1-15.1); White Blood Count 13.8 10^3/uL (4.0-10.0)
[2022-02-06 05:01] LABS: Anion Gap 16.5 (5-19); Blood Urea Nitrogen 11 mg/dL (6-20); Calcium 8.8 mg/dL (8.5-10.5); Carbon Dioxide 26 mmol/L (22-29); Chloride 102 mmol/L (98-107); Glomerular Filtration Rate 117.1 mL/min (90-130); Glucose 238 mg/dL (65-115); Osmolality Calculated 297 mOsm/kg (285-295); Potassium 4.5 mmol/L (3.5-5.1); Sodium 140 mmol/L (136-145)
[2022-02-06] MEDS: amlodipine 10 mg Tablet PO (06:05)
[2022-02-06] MEDS: metoprolol tartrate 50 mg Tablet 100 MG PO (06:05)
[2022-02-06 06:15] LABS: Glucose Point of Care 218 mg/dL (70-110)
[2022-02-06] MEDS: insulin lispro 100 unit/1 mL SUBCUT (09:01)
[2022-02-06] MEDS: gabapentin 400 mg Capsule 800 MG PO (09:02)
[2022-02-06] MEDS: aspirin 81 mg EC Tablet PO (09:02)
[2022-02-06] MEDS: pantoprazole DR 40 mg Tablet PO (09:02)
[2022-02-06] MEDS: isosorbide mononitrate ER 30 mg Tablet PO (09:02)
--- NOTE | 2022-02-06 09:20 | PM.DCS ---
Discharge Providers Date of Admission: 02/04/22 16:12 Date of Discharge: February 06, 2022 Attending Provider at Admission: Trev Moncada MD Attending Provider at Discharge: Trev Moncada MD Diagnoses at Discharge Discharge Diagnosis (1) Obstructive sleep apnea: Status: Acute (2) DM neuropathy, painful: Status: Acute (3) Hypertension: Status: Acute (4) Chest pain: Status: Acute (5) Abnormal stress test: Status: Acute (6) Unstable angina: Status: Acute Reason for Visit Reason for Visit: chest pain Hospital Course Hospital Course HPI : Tab Duke is a 57 year old male with past medical history of hypertension diabetes came in with chief complaint of dizziness,generalized weakness, fatigue which started a week back and since then has progressively worsened, he is also complaining of left-sided substernal chest pain radiating to his armpit sharp in nature relieved with nitro as well as morphine started since this Tuesday completed with diaphoresis He was recently discharged from the hospital after being worked up for chest pain, at that time nuclear stress test was done, as well as 2D echo, he was advised cardiac cath, but he opted for? medical management, he was discharged on aspirin starting Imdur sublingual nitrate came back again today with ongoing chest pain. Upon arrival in the ER he was worked up for above-mentioned complaint: EKG: Sinus rhythm Troponin trend:26,21,20 Hospital course: He was initially admitted for the management of unstable angina. Given his history of recent abnormal stress test , he underwent cardiac cath, which showed nonocclusive coronary artery disease. Chest pain is likely noncardiac in etiology. Upon further discussion with the patient: He has revealed that he has been episodic feeling, of diaphoresis dizziness, chest discomfort, palpitation, which last 10 to 15 minutes is then spontaneously resolved Patient has prior history of spinal tumor currently records are not available s/p surgery. Given the current presentation the patient will need work-up for pheochromocytoma/paraganglioma. Plasma fractionated metanephrine as well as normetanephrine has been drawn. Patient has been advised to follow-up with endocrine as an outpatient. Overall patient has responded well to above medical management and is being discharged in stable condition to home, he will continue to follow primary care physician as an outpatient. Physical Exam Const: COMMON NORMALS: patient oriented x3 HENMT: COMMON NORMALS: normocephalic and atraumatic HEAD & SCALP: normocephalic and atraumatic Eye: GENERAL EYE: appearance normal, both eyes and all related structures Chest: CHEST: Yes Symmetrical chest wall rise Resp: COMMON NORMALS: normal respiratory effort, No retractions, No use of accessory muscles and clear to auscultation bilaterally EFFORT & INSPECTION: Yes symmetric chest movement AUSCULTATION: clear to auscultation bilaterally Cardio: COMMON NORMALS: regular rate, regular rhythm, S1 normal heart sound present, S2 normal heart sound present, No gallops present (Cardio), No murmurs present (Cardio), No rub (Cardio) and Peripheral pulses 2+ throughout RATE: regular rate RHYTHM: regular rhythm HEART SOUNDS: S1 normal heart sound present and S2 normal heart sound present PERIPHERAL PULSES: Peripheral pulses 2+ throughout GI: COMMON NORMALS: Normal to inspection, nondistended, normoactive bowel sounds present, Soft to palpation, non-tender, No hepatosplenomegaly present and no masses AUSCULTATION: Yes normoactive bowel sounds PALPATION: Yes Soft to palpation and Yes No hepatosplenomegaly present RECTAL EXAM: Yes deferred Extremity: COMMON NORMALS: no clubbing, cyanosis or edema and no pedal edema Neuro: COMMON NORMALS: patient oriented x3 Discharge Data Studies Completed and Pending Completed Studies During Hospitalization Category Date Time Status BARGE MASTER request for service Routine Exams 02/05/22 11:35 Completed XR chest 1V portable [id number] Urgent Exams 02/04/22 14:15 Completed Pending at discharge Category Date Time Status Basic Metabolic Panel AM LABS Lab 02/07/22 04:00 Ordered Complete Blood Count w/Auto AM LABS Lab 02/07/22 04:00 Ordered Radiology Impressions Chest X-Ray 02/04/22 14:15 Impression: Negative chest. Laboratory Results WBC 13.8 10^3/uL (4.0-10.0) H 02/06/22 03:53 RBC 4.50 10^6/uL (4.1-5.3) 02/06/22 03:53 Hgb 12.8 g/dL (11.7-16.6) 02/06/22 03:53 Hct 39.9 % (42.0-52.0) L 02/06/22 03:53 MCV 88.7 fl (80-94) 02/06/22 03:53 MCH 28.4 pg (28.0-34.0) 02/06/22 03:53 MCHC 32.1 g/dL (30.0-36.0) 02/06/22 03:53 RDW 13.3 % (12.1-15.1) 02/06/22 03:53 Plt Count 194 10^3/cmm (130-400) 02/06/22 03:53 MPV 10.9 fL (7.4-10.4) H 02/06/22 03:53 Neut % (Auto) 81.4 % 02/06/22 03:53 Lymph % (Auto) 10.1 % 02/06/22 03:53 [place] % (Auto) 7.3 % 02/06/22 03:53 Eos % (Auto) 0.5 % 02/06/22 03:53 Baso % (Auto) 0.1 % 02/06/22 03:53 Neut # (Auto) 11.26 10^3/uL (1.8-7.7) H 02/06/22 03:53 Lymph # (Auto) 1.4 10^3/uL (0.8-4.8) 02/06/22 03:53 [place] # (Auto) 1.0 10^3/uL (0.2-0.9) H 02/06/22 03:53 Eos # (Auto) 0.1 10^3/uL (0.0-0.8) 02/06/22 03:53 Baso # (Auto) 0.0 10^3/uL (0.0-0.1) 02/06/22 03:53 Nucleated RBC % (auto) 0 % 02/06/22 03:53 Nucleated RBCs # 0.0 /100WBC 02/06/22 03:53 Sodium 140 mmol/L (136-145) 02/06/22 03:53 Potassium 4.5 mmol/L (3.5-5.1) 02/06/22 03:53 Chloride 102 mmol/L (98-107) 02/06/22 03:53 Carbon Dioxide 26 mmol/L (22-29) 02/06/22 03:53 Anion Gap 16.5 (5-19) 02/06/22 03:53 BUN 11 mg/dL (6-20) 02/06/22 03:53 Creatinine 0.7 mg/dL (0.7-1.2) 02/06/22 03:53 GFR Calculation 117.1 mL/min (90-130) 02/06/22 03:53 Glucose 238 mg/dL (65-115) H 02/06/22 03:53 POC Glucose 218 mg/dL (70-110) H 02/06/22 06:07 Calculated Osmolality 297 mOsm/kg (285-295) H 02/06/22 03:53 Calcium 8.8 mg/dL (8.5-10.5) 02/06/22 03:53 Troponin T Baseline 26 ng/L (0-15) H 02/04/22 14:40 Troponin T 120 Minute 21.33 ng/L (0-15) H 02/04/22 16:10 Delta Troponin T -4.67 ABS# (0-10) L 02/04/22 16:10 Troponin T Hi Sens 6Hr 20.72 ng/L (0-15) H 02/04/22 20:13 Troponin T Hi Sens 6Hr Delta -5.28 ng/L (0-12) L 02/04/22 20:13 TSH 1.53 uIU/mL (0.27-4.20) 02/05/22 04:50 Vitals Last Vital Signs Temp 97.1 F L 02/06/22 07:37 Pulse 84 02/06/22 09:18 Resp 13 02/06/22 07:37 BP 109/75 02/06/22 07:38 Pulse Ox 94 02/06/22 09:18 Discharge Plan Discharge Patient Disposition: Home Condition: Stable Prescriptions: Continued (DME) pen needle, diabetic [Comfort EZ Pen [place]] 29 gauge x 1/2 needle See Rx Instructions .Route Qty: 100 1RF Rx Instructions: As directed albuterol sulfate [ProAir HFA] 90 mcg/actuation HFA aerosol inhaler 2 puff inhalation Q6H PRN (Reason: shortness of breath or wheezing) Qty: 6.7 0RF metformin 500 mg tablet 500 mg PO DAILY PRN (Reason: High Blood sugar) 0RF glipizide 5 mg tablet extended release 24 hr 5 mg PO QAM 0RF gabapentin 800 mg tablet 800 mg PO BID 0RF amlodipine 10 mg tablet 10 mg PO QAM 0RF metformin 1,000 mg tablet 1,000 mg PO BID 0RF lisinopril 40 mg tablet 40 mg PO QAM 0RF Lantus Solostar U-100 Insulin 100 unit/mL (3 mL) insulin pen 40 unit SUBCUT BEDTIME 0RF ropinirole 4 mg tablet 8 mg PO BEDTIME 0RF quetiapine 50 mg tablet 50 mg PO BEDTIME 0RF venlafaxine 75 mg capsule,extended release 24hr 75 mg PO BEDTIME 0RF metoprolol tartrate 100 mg tablet 100 mg PO QAM 0RF Victoza 2-Matthew 0.6 mg/0.1 mL (18 mg/3 mL) pen injector 1.2 mg SUBCUT BEDTIME 0RF aspirin 81 mg capsule 81 mg PO DAILY Qty: 90 0RF atorvastatin 40 mg Tablet 40 mg PO BEDTIME Qty: 90 0RF isosorbide mononitrate 30 mg tablet extended release 24 hr 30 mg PO DAILY Qty: 90 0RF dextromethorphan-guaifenesin 10-100 mg/5 mL Syrup 10 ml PO Q4H PRN (Reason: Cough) Qty: 237 1RF nitroglycerin 0.4 mg Tablet, Sublingual 0.4 mg sublingual Q5M PRN (Reason: Chest Pain) Qty: 20 0RF Discharge Orders: Discharge Order (Routine); Ordered 02/06/22 Ordered By: Trev Moncada Referrals: Lj Yao MD [Physician] - 1 month ([facility] will contact you to schedule an follow-up appointment in 1 month. If you haven't heard from them by Tuesday. Please call ) Christopher Webb MD [Physician] - 2 weeks (Please call for an follow-up with Dr. Webb in 2 weeks. Please call ) Discharge Diet: Diabetic Discharge Activity: Resume usual activity Patient Instructions: Chest Pain (DC), Hypertension (DC), Hyperlipidemia (DC), Heart Catheterization (DC), Chest Pain Stoplight, Opioid Safety, Post Angiogram Home Care Instructions Discharge Attestations Time Spent in Discharge Care*: greater than 30 min Specific Discharge Activities: educating patient, educating and/or supporting family/caregiver, discussing with pcp/other providers, discussing with gearcase assembler/social workers/dc planners, documenting/other paperwork and evaluating patient/reviewing data Quality Metrics Clinical Quality Measures [ No reported AMI, CVA or VTE this stay] Coding Level of Care Code Acute Chg FW DC note Diagnoses Obstructive sleep apnea G47.33 DM neuropathy, painful E11.40 Hypertension I10 Chest pain R07.9 Abnormal stress test R94.39 Unstable angina I20.0
[2022-02-06 11:53] LABS: Glucose Point of Care 227 mg/dL (70-110)
--- NOTE | 2022-02-06 12:04 | PC.NURSE ---
discharge instructions given and explained.pt verb understanding of instructions.discharged at 12:00 via ambulatory to exit.daughter to drive pt home
[2022-02-11 10:23] LABS: Metanephrine Total Free 105 pg/mL (<=205)
== END 2022-02-06 12:00 | disposition home or self-care (01) ==
LOC: ER 16:22 → MEDSURG 02-05 11:34 → CSU 02-05 12:29
PROVIDERS: Internal Medicine Cardiovascular Disease; Admitting Provider Internal Medicine; Emergency Provider Emergency Medicine; Visit Provider Internal Medicine
DX: I20.0 Unstable angina (principal); R94.39 Abnormal result of other cardiovascular function study; I10 Essential (primary) hypertension; R07.9 Chest pain, unspecified; E11.40 Type 2 diabetes mellitus with diabetic neuropathy, unspecified; G47.33 Obstructive sleep apnea (adult) (pediatric); Z79.4 Long term (current) use of insulin; Z87.891 Personal history of nicotine dependence; E78.2 Mixed hyperlipidemia; E11.65 Type 2 diabetes mellitus with hyperglycemia; I73.00 Raynaud's syndrome without gangrene; E66.9 Obesity, unspecified; Z68.34 Body mass index [BMI] 34.0-34.9, adult
CPT/HCPCS: 36415; 36416; 71045; 80048; 82962; 83835; 84443; 84484; 85025; 93005; 93452; 93458; 96372; 96374; 99285; C1769; C1887; C1894; G0378; J1644; J1815; J2250; J2270; J3010; J3490; J7030; Q9967

== ENCOUNTER → 2022-02-12 13:22 | Outpatient (BNVA) | payer MEDICAID, SELFPAY | PROVIDERS: Visit Provider Psychiatry & Neurology Psychiatry | DX: F33.2 Major depressive disorder, recurrent severe without psychotic features (principal); F10.21 Alcohol dependence, in remission | CPT/HCPCS: 99204 ==

== ENCOUNTER 2022-02-15 09:36 | Outpatient (CLI) | payer MEDICAID, SELFPAY ==
--- NOTE | 2022-02-15 09:30 | CT_ITS ---
WS: [id number] CT CHEST TECHNIQUE: Noncontrast CT of the chest with coronal and sagittal reformatted images. CLINICAL INFORMATION: resolution of COVID pneumonia COMPARISON: None. DLP: 731.[address] scans at [facility] use at least one of these dose optimization techniques: automated e xposure control; mA and/or kV adjustment per patient size (includes targeted exams where dose is matc hed to clinical indication); or iterative reconstruction. FINDINGS: Slight hazy residual ground glass infiltrates in the bilateral lower lobes likley sequelae of COVID 1 9 pneumonia given prior history. Slight subsegmental atelectasis in the lung bases. No focal pneumoni a or pleural fluid. Normal caliber thoracic aorta. Proximal main pulmonary arteries are normal calibe r. No mediastinal or hilar lymphadenopathy. No axillary lymphadenopathy. Normal GE junction. Adrenal glands are normal. Hypertrophic changes thoracic spine. CT/CT chest wo con [id number] IMPRESSION: 1. Slight hazy residual groundglass infiltrates in the lung bases likely seque lae of Covid 19 pneumonia given prior history. 2. Subsegmental atelectasis the lung bases. 3. No focal pneumonia or pleural fluid. 4. No other significant findings.
== END 2022-02-15 09:37 | disposition home or self-care (01) ==
LOC: RAD 09:37
PROVIDERS: Visit Provider Internal Medicine Pulmonary Disease
DX: J98.4 Other disorders of lung (principal); R06.02 Shortness of breath; R06.09 Other forms of dyspnea; R42 Dizziness and giddiness; U09.9 Post COVID-19 condition, unspecified
CPT/HCPCS: 71250

== ENCOUNTER → 2022-02-17 13:08 | Outpatient (BNVA) | payer MEDICAID, SELFPAY | PROVIDERS: Visit Provider Internal Medicine Cardiovascular Disease | DX: I10 Essential (primary) hypertension (principal); F10.21 Alcohol dependence, in remission; R07.89 Other chest pain; E11.65 Type 2 diabetes mellitus with hyperglycemia; Z79.4 Long term (current) use of insulin; Z79.84 Long term (current) use of oral hypoglycemic drugs; E78.2 Mixed hyperlipidemia; G47.33 Obstructive sleep apnea (adult) (pediatric); Z87.891 Personal history of nicotine dependence | CPT/HCPCS: 99213; 99214 ==

== ENCOUNTER → 2022-03-04 11:06 | Outpatient (BNVA) | payer MEDICAID, SELFPAY | PROVIDERS: Visit Provider Internal Medicine Pulmonary Disease | DX: J18.9 Pneumonia, unspecified organism (principal); R42 Dizziness and giddiness; R06.02 Shortness of breath; R06.09 Other forms of dyspnea; U09.9 Post COVID-19 condition, unspecified; R06.00 Dyspnea, unspecified; Z87.891 Personal history of nicotine dependence; I10 Essential (primary) hypertension; E78.5 Hyperlipidemia, unspecified | CPT/HCPCS: 82785; 86003; 99214 ==

== ENCOUNTER 2022-03-25 13:46 | Outpatient (CLI) | payer MEDICAID, SELFPAY ==
--- NOTE | 2022-03-25 15:00 | USCV_ITS ---
Tab Duke Age: 57 Gender: M : 1965 Exam Date: 03/25/2022 13:54 Ordering Phys: Olayinka Miramontes MD Technologist: MANDA [place] [facility] [place]: Dizziness Risk Factors: Previous Vascular Surgery: Right Brachial BP: / Left Brachial BP: / Right Left Velocity (cm/s) Spectral Plaque Velocity (cm/s) Spectral Plaque Syst/Diast Broadening Syst/Diast Broadening 81.60/ 9.90 Prox CCA 78.80 / 14.40 91.50/ 12.10 Mid CCA 96.10 / 24.00 70.10/ 12.80 Distal CCA 58.70 / 15.80 89.30/ 20.90 Prox ICA 46.70 / 16.10 57.30/ 10.60 Mid ICA 66.70 / 25.30 35.30/ 14.30 Distal ICA 55.20 / 19.90 116.90 ECA 125.90 0.98 ICA/CCA 0.69 Antegrade Vertebral Antegrade 56.20/ 12.10 cm/s 45.40/ 12.50 cm/s Tri Subclavian Tri 167.3 140.7 0 0 CONCLUSIONS Right ICA stenosis <50%. Left ICA stenosis <50%. Normal antegrade Doppler flow noted in the right vertebral artery. Normal antegrade Doppler flow noted in the left vertebral artery. Charan Pacheco MD (Electronically Signed) Final Date: 25 March 2022 17:56 S
== END 2022-03-25 13:47 | disposition home or self-care (01) ==
LOC: RAD 13:47
PROVIDERS: Visit Provider Internal Medicine Pulmonary Disease
DX: R42 Dizziness and giddiness (principal)
CPT/HCPCS: 93880

== ENCOUNTER → 2022-04-02 12:20 | Outpatient (BNVA) | payer MEDICAID, SELFPAY | PROVIDERS: Visit Provider Psychiatry & Neurology Psychiatry | DX: F33.2 Major depressive disorder, recurrent severe without psychotic features (principal); F10.21 Alcohol dependence, in remission | CPT/HCPCS: 99214 ==

== ENCOUNTER → 2022-05-06 10:07 | Outpatient (BNVA) | payer MEDICAID, SELFPAY | PROVIDERS: PCP Nurse Practitioner Family; Visit Provider Internal Medicine Pulmonary Disease | DX: J18.9 Pneumonia, unspecified organism (principal); R42 Dizziness and giddiness; R06.02 Shortness of breath; R06.09 Other forms of dyspnea; U09.9 Post COVID-19 condition, unspecified; R06.00 Dyspnea, unspecified; Z87.891 Personal history of nicotine dependence; Z79.84 Long term (current) use of oral hypoglycemic drugs; Z79.4 Long term (current) use of insulin | CPT/HCPCS: 99214 ==

== ENCOUNTER → 2022-05-17 09:51 | Outpatient (BNVA) | payer MEDICAID, SELFPAY | PROVIDERS: PCP Nurse Practitioner Family; Visit Provider Otolaryngology | DX: I95.1 Orthostatic hypotension (principal) | CPT/HCPCS: 99203 ==

== ENCOUNTER 2022-05-18 07:12 | Outpatient (CLI) | payer MEDICAID, SELFPAY ==
--- NOTE | 2022-05-18 09:08 | PFTS_ITS ---
Date of Study:05/18/22 Date of Dictation: 05/21/2022 MECHANICS: Postbronchodilator forced vital capacity (FVC) is reduced. Postbronchodilator forced expiratory volume in one second (FEV1) is moderately reduced. FEV1/FVC is normal. There is no significant bronchodilator response. FLOW VOLUME LOOP: Sloping of end expiratory limb suggestive of small airway obstruction LUNG VOLUMES: Total lung capacity (TLC) is reduced. Residual volume (RV) is reduced. DIFFUSING CAPACITY FOR CARBON MONOXIDE: Normal . INTERPRETATION: The spirometry is suggestive of moderate restriction. There is no significant bronchodilator response. Lung volumes suggest moderate restriction. Gas transfer is normal. Clinical correlation recommended. MTDD
== END 2022-05-18 07:13 | disposition home or self-care (01) ==
LOC: RT 07:13
PROVIDERS: PCP Nurse Practitioner Family; Visit Provider Internal Medicine Pulmonary Disease
DX: R06.09 Other forms of dyspnea (principal); U09.9 Post COVID-19 condition, unspecified; R06.02 Shortness of breath; R42 Dizziness and giddiness
CPT/HCPCS: 94060; 94618; 94726; 94729; J7614

== ENCOUNTER 2022-06-29 10:07 | Inpatient (IN) | payer MEDICAID, SELFPAY ==
[2022-06-29 10:17] VITALS: BP 197/105; PULSE 99; RESP 14; TEMP 36.6; O2SAT 97
--- NOTE | 2022-06-29 10:31 | W.ED.GENADLT ---
HPI - General Adult General: Chief complaint: Psychiatric Symptoms Stated complaint: MHE/depression Time Seen by Provider: 06/29/22 10:16 History of Present Illness: HPI: [57]yo patient w/ hx of depression BIBA for SI with depression. On arrival, the patient is AAOx3 and cooperative with my evaluation. No focal complaints of chest pain, shortness of breath, palpitations, N/V, focal GI/ complaints. Currently denies HI. No complaints of hallucinations. Onset: acute on chronic Duration: ongoing Location: home Severity: severe Associated symptoms: Deny chest pain, dyspnea, nausea, rash, palpitations or vomiting Review of Systems Const: Denies: fever(s) or chills Eyes: Denies: change in vision ENMT: Denies: mouth pain Card: Denies: chest pain or palpitations Resp: Denies: dyspnea or non-productive cough GI: Denies: abdominal pain, nausea, vomiting or diarrhea : Denies: dysuria Musc: Denies: extremity pain Skin/Breast: Denies: rash or new lesions Neuro: Denies: weakness in extremities Psych: Reports: depression and suicidal ideation Americo/Lymph: Denies: easy bruising PFSH ED PFSH: Medical History Abnormal stress test Chest pain Depression DM neuropathy, painful DM w/o complication type II, uncontrolled HTN (hypertension), benign Hyperlipemia, mixed Hypertension Lupus He reports history of lupus diagnosed by Dr. Cortes, though there is no record of this. Obstructive sleep apnea Psychiatric care Raynaud's phenomenon Unstable angina Surgical History History of back surgery Family History Other Lupus Social History Smoking and tobacco status: former smoker Quit status (tobacco): has tried quititng Number of times tried to quit tobacco: 5 Second hand smoke exposure: No Alcohol intake: never Physical Exam Const: COMMON NORMALS: alert HENMT: COMMON NORMALS: atraumatic HEAD & SCALP: atraumatic MOUTH: moist mucous membranes not abnormal Eye: COMMON NORMALS: EOMs intact bilaterally and conjunctivae normal CONJUNCTIVA: Yes conjunctivae normal Neck/C-Spine: COMMON NORMALS: full ROM and supple Resp: COMMON NORMALS: normal respiratory effort and clear to auscultation bilaterally AUSCULTATION: clear to auscultation bilaterally Cardio: COMMON NORMALS: regular rate RATE: regular rate GI: COMMON NORMALS: Soft to palpation and non-tender PALPATION: Yes Soft to palpation Extremity: COMMON NORMALS: full ROM Neuro: SENSORIUM/ORIENTATION: Yes alert MOTOR EXAM: No Abnormal motor strength present and Other motor observations present (no focal motor deficits) Psych: COMMON NORMALS: speech normal SPEECH: Yes normal speech MOOD & AFFECT: Yes depressed mood Course Vital Signs: Vital signs: Vital Signs Temperature 97.9 F 06/29/22 10:17 Pulse Rate 99 06/29/22 10:17 Respiratory Rate 14 06/29/22 10:17 Blood Pressure 197/105 06/29/22 10:17 Pulse Oximetry 97 06/29/22 10:17 Oxygen Delivery Me thod 06/29/22 10:17 MDM - General Adult Medical Decision Making [57]yo patient w/ hx of depression presenting for SI with plan. HDS, exam within normal limit Thoughts are linear and organized, and the patient has no AH/VH, or HI. Clinically the patient displays no overt toxidrome; they are well appearing, with low suspicion for toxic ingestion given history and exam. Symptoms unlikely 2/2 anemia, hypothyroidism, infection, or ICH. Workup: CBC, CMP, Lipase, salicylate/tylenol, serum ethanol, UDS Lab findings: wnl [12:00pm] On reassessment, labs and workup wnl. Patient is hemodynamically stable with no acute medical complaints. Case discussed with psychiatric provider Dr. Mcmahon at [facility] psych inpatient with recommendation for admission Disposition: Psych Discharge Plan Discharge Condition: Stable Prescriptions: No Action (DME) pen needle, diabetic [Comfort EZ Pen [place]] 29 gauge x 1/2 needle See Rx Instructions .Route Qty: 100 1RF Rx Instructions: As directed albuterol sulfate [ProAir HFA] 90 mcg/actuation HFA aerosol inhaler 2 puff inhalation Q6H PRN (Reason: shortness of breath or wheezing) Qty: 6.7 0RF budesonide-formoterol [Symbicort] 80-4.5 mcg/actuation HFA aerosol inhaler 2 puff inhalation BID Qty: 10.2 3RF omeprazole 20 mg capsule,delayed release(DR/EC) 20 mg PO DAILY Qty: 30 3RF gabapentin 800 mg tablet 800 mg PO TID Qty: 90 2RF trazodone 100 mg tablet 200 mg PO .HS PRN (Reason: insomnia) Qty: 60 2RF venlafaxine [Effexor XR] 150 mg capsule,extended release 24hr 150 mg PO DAILY Qty: 30 2RF glipizide 5 mg tablet extended release 24 hr 5 mg PO QAM amlodipine 10 mg tablet 10 mg PO QAM metformin 1,000 mg tablet 1,000 mg PO BID lisinopril 40 mg tablet 40 mg PO QAM Lantus Solostar U-100 Insulin 100 unit/mL (3 mL) insulin pen 40 unit SUBCUT BEDTIME ropinirole 4 mg tablet 8 mg PO BEDTIME metoprolol tartrate 100 mg tablet 100 mg PO QAM aspirin 81 mg capsule 81 mg PO DAILY Qty: 90 0RF atorvastatin 40 mg Tablet 40 mg PO BEDTIME Qty: 90 0RF isosorbide mononitrate 30 mg tablet extended release 24 hr 30 mg PO DAILY Qty: 90 0RF dextromethorphan-guaifenesin 10-100 mg/5 mL Syrup 10 ml PO Q4H PRN (Reason: Cough) Qty: 237 1RF nitroglycerin 0.4 mg Tablet, Sublingual 0.4 mg sublingual Q5M PRN (Reason: Chest Pain) Qty: 20 0RF Victoza 2-Matthew 0.6 mg/0.1 mL (18 mg/3 mL) pen injector 1.8 mg SUBCUT BEDTIME metformin 500 mg tablet 500 mg PO DAILY PRN (Reason: High Blood sugar) Rx Instructions: At noon PRN. Referrals: Luh Castro, COUNSELING AIDE [Primary Care Provider] - Coding Level of Care Code ED Certified Composites Technician for Mackenzie López
[2022-06-29 10:51] LABS: Basophils % 0.4 %; Eosinophils # 0.4 10^3/uL (0.0-0.8); Eosinophils % 3.9 %; Hemoglobin 14.3 g/dL (11.7-16.6); Lymphocytes # 2.1 10^3/uL (0.8-4.8); Mean Corpuscular HGB Conc 33.3 g/dL (30.0-36.0); Mean Corpuscular Hemoglobin 29.1 pg (28.0-34.0); Mean Corpuscular Volume 87.6 fl (80-94); Mean Platelet Volume 10.7 fL (7.4-10.4); Monocytes # 0.5 10^3/uL (0.2-0.9); Monocytes % 5.5 %; Neutrophils # 6.42 10^3/uL (1.8-7.7); Neutrophils % 67.9 %; Nucleated Red Blood Cells % 0 %; Platelet Count 182 10^3/cmm (130-400); Red Blood Count 4.91 10^6/uL (4.1-5.3); Red Cell Distribution Width 13.1 % (12.1-15.1); White Blood Count 9.5 10^3/uL (4.0-10.0)
[2022-06-29 11:07] LABS: Amphetamines Screen Urine Negative (Negative); Barbiturates Screen Urine Negative (Negative); Benzodiazepines Screen Urine Negative (Negative); Cocaine Screen Urine Negative (Negative); Opiate Screen Urine Negative (Negative); PCP Screen Urine Negative (Negative); THC Screen Urine Negative (Negative)
[2022-06-29 11:12] LABS: Alanine Aminotransferase 22 U/L (0-41); Albumin Level 4.2 g/dL (3.5-5.2); Alkaline Phosphatase 73 U/L (40-130); Anion Gap 16.6 (5-19); Aspartate Amino Transferase 12 U/L (0-40); Blood Urea Nitrogen 10 mg/dL (6-20); Calcium 9.1 mg/dL (8.5-10.5); Carbon Dioxide 26 mmol/L (22-29); Chloride 96 mmol/L (98-107); Globulin 2.8 g/dL (1.3-4.6); Glomerular Filtration Rate 139.9 mL/min (90-130); Glucose 326 mg/dL (65-115); Osmolality Calculated 292 mOsm/kg (285-295); Potassium 3.6 mmol/L (3.5-5.1); Sodium 135 mmol/L (136-145); Total Bilirubin 0.5 mg/dL (0.15-1.2)
[2022-06-29 11:13] LABS: Acetaminophen < 5.0 ug/mL (10-30); Alcohol Level < 10 mg/dL (0-10); Salicylate < 0.3 mg/dL (3-10)
--- NOTE | 2022-06-29 12:28 | PC.PHAR ---
pt verified his medications-rx last filled for atorvastatin 40mg daily on 05/05/22 30d/s pt states had a build up and ran out yesterday-[facility]or 20mg ready for the pt to pear picker today pt states will not take zocor -pt states he uses victoza 1.8mg [facility] last filled 1.2mg daily-notes are made in the pharmacy comments
--- NOTE | 2022-06-29 14:21 | PC.NURSE ---
pt reports suicidal ideations, mostly last night. reports plan of taking pills more than I should including his heart pills and other pills, but nothing illegal. Pt reports she has seen a behavioral clinic and they gave him meds that has seemed to help in the past. Pt denies HI or hallucinations. Pt is calm and cooperative. Reports chronic back pain. Pt intermittently falling asleep in the bed. Bagged lunch brought to pt.
--- NOTE | 2022-06-29 15:22 | PC.NURSE ---
pts asleep in bed
[2022-06-29 18:12] VITALS: BP 183/98; PULSE 90; RESP 17; TEMP 36.7; O2SAT 97
[2022-06-29] MEDS: trazodone 100 mg Tablet 200 MG PO (20:01)
[2022-06-29 20:48] LABS: Glucose Point of Care 269 mg/dL (70-110)
[2022-06-29] MEDS: gabapentin 400 mg Capsule 800 MG PO (21:14)
[2022-06-29] MEDS: atorvastatin 40 mg Tablet PO (21:15)
[2022-06-29] MEDS: pantoprazole DR 40 mg Tablet PO (21:15)
[2022-06-29] MEDS: isosorbide mononitrate ER 30 mg Tablet PO (21:15)
[2022-06-29] MEDS: aspirin 81 mg EC Tablet PO (21:15)
[2022-06-29] MEDS: trazodone 50 mg Tablet PO (21:15)
[2022-06-29] MEDS: ropinirole 2 mg Tablet 8 MG PO (21:16)
[2022-06-29] MEDS: insulin lispro 100 unit/1 mL SUBCUT (21:17)
[2022-06-29] MEDS: hyDROXYzine 25 mg Capsule 50 MG PO (21:24)
[2022-06-29] MEDS: insulin glargine 100 units/1 mL 40 UNIT SUBCUT (21:36)
[2022-06-29 21:43] VITALS: PULSE 81; RESP 16; O2SAT 94
[2022-06-29 22:00] VITALS: BP 176/95; PULSE 87; RESP 15; TEMP 36.7; O2SAT 95
--- NOTE | 2022-06-29 23:28 | NUR.SHIFT ---
at appx 2019 assessment at bedside. pt calm and cooperative. pt reports 7/10 anxiety and 10/10 depression at this time. pt denies si/hi/avh at this time. pt reports mood is not caring about anything . blood glucose 269. pt has flat affect, good eye contact and and interacted appropriately during converastion. pt took all meds as prescribed and given vistaril for anxiety with good effect. pt reports bm today. q15 min safety checks continued in milieu.
[2022-06-30 06:00] VITALS: BP 123/69; PULSE 81; RESP 17; TEMP 36.4; O2SAT 94
[2022-06-30 06:41] LABS: Glucose Point of Care 290 mg/dL (70-110)
[2022-06-30 08:51] VITALS: PULSE 115; RESP 16; O2SAT 96
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
[2022-06-30] MEDS: insulin lispro 100 unit/1 mL SUBCUT ×4 (09:56→21:59)
[2022-06-30] MEDS: amlodipine 10 mg Tablet PO (09:57)
[2022-06-30] MEDS: metformin 500 mg Tablet 1000 MG PO ×2 (09:57→18:07)
[2022-06-30] MEDS: ascorbic acid 500 mg Tablet PO (09:57)
[2022-06-30] MEDS: gabapentin 400 mg Capsule 800 MG PO ×2 (09:57→21:16)
[2022-06-30] MEDS: venlafaxine ER (24HR) 150 mg Capsule PO (09:57)
[2022-06-30] MEDS: lisinopril 20 mg Tablet 40 MG PO (09:58)
[2022-06-30] MEDS: metoprolol tartrate 50 mg Tablet 100 MG PO (09:58)
[2022-06-30 12:16] LABS: Glucose Point of Care 440 mg/dL (70-110)
[2022-06-30 14:00] VITALS: BP 134/72; PULSE 69; RESP 17; TEMP 36.4; O2SAT 98
[2022-06-30 17:42] LABS: Glucose Point of Care 148 mg/dL (70-110)
[2022-06-30 19:59] VITALS: BP 117/74; PULSE 60; RESP 14; O2SAT 97
[2022-06-30 20:08] LABS: Glucose Point of Care 298 mg/dL (70-110)
[2022-06-30 20:54] VITALS: PULSE 59; RESP 18; O2SAT 99
[2022-06-30] MEDS: ropinirole 2 mg Tablet 8 MG PO (21:16)
[2022-06-30] MEDS: atorvastatin 40 mg Tablet PO (21:17)
[2022-06-30] MEDS: isosorbide mononitrate ER 30 mg Tablet PO (21:17)
[2022-06-30] MEDS: trazodone 100 mg Tablet 200 MG PO (21:17)
[2022-06-30] MEDS: pantoprazole DR 40 mg Tablet PO (21:17)
[2022-06-30] MEDS: aspirin 81 mg EC Tablet PO (21:17)
[2022-06-30] MEDS: insulin glargine 100 units/1 mL 40 UNIT SUBCUT (21:59)
[2022-07-01 06:00] VITALS: BP 163/92; PULSE 75; RESP 14; TEMP 36.9; O2SAT 96
[2022-07-01 06:31] LABS: Glucose Point of Care 286 mg/dL (70-110)
[2022-07-01 08:00] VITALS: PULSE 75; RESP 14; O2SAT 96
[2022-07-01] MEDS: metoprolol tartrate 50 mg Tablet 100 MG PO (09:28)
[2022-07-01] MEDS: ascorbic acid 500 mg Tablet PO (09:28)
[2022-07-01] MEDS: gabapentin 400 mg Capsule 800 MG PO ×2 (09:28→21:21)
[2022-07-01] MEDS: lisinopril 20 mg Tablet 40 MG PO (09:28)
[2022-07-01] MEDS: amlodipine 10 mg Tablet PO (09:28)
[2022-07-01] MEDS: metformin 500 mg Tablet 1000 MG PO ×2 (09:28→18:58)
[2022-07-01] MEDS: hyDROXYzine 25 mg Capsule 50 MG PO (09:33)
[2022-07-01] MEDS: insulin lispro 100 unit/1 mL SUBCUT ×4 (09:34→21:21)
--- NOTE | 2022-07-01 09:35 | PC.NURSE ---
PRN VISTARIL 50 MG GIVEN PO PER PT C/O ANXIETY
[2022-07-01] MEDS: venlafaxine ER (24HR) 75 mg Capsule 225 MG PO (10:10)
--- NOTE | 2022-07-01 11:24 | P.NPUPN_ITS ---
Subjective NPU Subjective: Patient is in today reporting that he is doing much better. According to him his daughter obtained his medications and assists him in taking it in the correct manner daily. He reports that recently however she had not been taking the medication on time and that he not been taking medication daily as prescribed. He reports he feels much better having been here and taking his medication and that he more or less would prefer continuing the stabilization at home. We really would get collateral information on this issue and consider discharge after reviewing any pertinent affidavits. Mental Status Exam MSE Comments: This is an obese white male in hospital comes with adequate grooming and eye contact. No abnormal movements except for mild psychomotor retardation. Cooperative with exam in no acute distress. Speech was slightly decreased rate and volume. Mood described as much better, affect slightly subdued. Thought process organized. Thought content: Patient denied suicidal or homicidal ideation, no delusions reported noted, he denied any auditory visual hallucinations. Attention concentration were intact and memory appeared reliable but none were formally tested. He is alert and oriented x3. Insight appeared fair, judgment limited impulse control appears fair. Vitals/I&O/Wt Last Vital Signs Temp 98.5 F 07/01/22 06:00 Pulse 75 07/01/22 08:00 Resp 14 07/01/22 08:00 BP 163/92 07/01/22 06:00 Pulse Ox 96 07/01/22 08:00 O2 Del Method 07/01/22 08:00 Data NPU : 06/29/22 10:38 06/29/22 10:38 A&P Assessment and plan (1) Depression with suicidal ideation: Status: Acute (2) Major depressive disorder: Status: Acute Plan This is a 57-year-old white male with a past history of alcohol abuse currently endorsing severe depression with multiple medication medical problems. He would likely benefit from continued inpatient hospitalization this time as he is suicidal. #1 continue current medications as prescribed #2 continue every TO-15 minute checks for safety. #3 recommend sober living treatment at the highest level of care to which the patient is willing to commit #4 engage patient in individual milieu and group therapy Involuntary Hold Information 96 Hour Hold: 96 Hour Involuntary Admission: No Attestations NPU Medical Necessity Statement*: Inpatient hospitalization is medically necessary and the clinically appropriate intervention at this time. We will monitor medications and make changes as indicated. Likely length of stay is 1-3 days Coding Level of Care Code Acute Agricultural Education Instructor for Chg Fwd Diagnoses Depression with suicidal ideation F32.A; R45.851 Major depressive disorder F32.9
[2022-07-01 12:32] LABS: Glucose Point of Care 437 mg/dL (70-110)
[2022-07-01 14:00] VITALS: BP 106/76; PULSE 66; RESP 17; TEMP 36.4; O2SAT 96
[2022-07-01 18:39] LABS: Glucose Point of Care 423 mg/dL (70-110)
[2022-07-01 20:11] VITALS: PULSE 70; RESP 16; O2SAT 98
[2022-07-01 20:43] LABS: Glucose Point of Care 495 mg/dL (70-110)
[2022-07-01] MEDS: trazodone 100 mg Tablet 200 MG PO (21:20)
[2022-07-01] MEDS: pantoprazole DR 40 mg Tablet PO (21:20)
[2022-07-01] MEDS: isosorbide mononitrate ER 30 mg Tablet PO (21:20)
[2022-07-01] MEDS: ropinirole 2 mg Tablet 8 MG PO (21:20)
[2022-07-01] MEDS: atorvastatin 40 mg Tablet PO (21:21)
[2022-07-01] MEDS: insulin glargine 100 units/1 mL 40 UNIT SUBCUT (21:21)
[2022-07-01] MEDS: aspirin 81 mg EC Tablet PO (21:21)
[2022-07-01 21:45] VITALS: BP 159/74; PULSE 72; RESP 17; TEMP 36.7; O2SAT 95
[2022-07-02 06:00] VITALS: BP 169/73; PULSE 76; RESP 16; TEMP 37; O2SAT 96
[2022-07-02 06:44] LABS: Glucose Point of Care 295 mg/dL (70-110)
[2022-07-02] MEDS: amlodipine 10 mg Tablet PO (08:20)
[2022-07-02] MEDS: ascorbic acid 500 mg Tablet PO (08:20)
[2022-07-02] MEDS: metoprolol tartrate 50 mg Tablet 100 MG PO (08:20)
[2022-07-02] MEDS: gabapentin 400 mg Capsule 800 MG PO (08:21)
[2022-07-02] MEDS: venlafaxine ER (24HR) 75 mg Capsule 225 MG PO (08:21)
[2022-07-02] MEDS: metformin 500 mg Tablet 1000 MG PO (08:21)
[2022-07-02] MEDS: lisinopril 20 mg Tablet 40 MG PO (08:21)
[2022-07-02] MEDS: insulin lispro 100 unit/1 mL SUBCUT ×2 (08:22→12:25)
[2022-07-02 08:49] VITALS: PULSE 89; RESP 18; O2SAT 97
[2022-07-02 12:22] LABS: Glucose Point of Care 360 mg/dL (70-110)
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
[2022-07-02 13:23] VITALS: PULSE 89; RESP 18; O2SAT 97
== END 2022-07-02 13:44 | disposition home or self-care (01) | DRG 881 ==
LOC: ER 10:52 → NP 17:26
PROVIDERS: Admitting Provider Psychiatry & Neurology Psychiatry; Emergency Provider Emergency Medicine; PCP Nurse Practitioner Family; Visit Provider Psychiatry & Neurology Psychiatry
DX: F32.9 Major depressive disorder, single episode, unspecified (principal); R45.851 Suicidal ideations; Z65.3 Problems related to other legal circumstances; E11.9 Type 2 diabetes mellitus without complications; I10 Essential (primary) hypertension; Z59.9 Problem related to housing and economic circumstances, unspecified
CPT/HCPCS: 36416; 80053; 80306; 80307; 82962; 85025; 94640; 96372; 97150; 97165; 99285; J1815

== ENCOUNTER 2022-08-29 08:18 | Emergency (ER) | payer MEDICAID, SELFPAY ==
[2022-08-29 08:25] VITALS: BP 179/100; PULSE 97; RESP 16; TEMP 36.9; O2SAT 96; BMI 38.7
--- NOTE | 2022-08-29 08:35 | ECG_ITS ---
[facility] Test Date: 2022-08-29 Pat Name: Tab Duke Department: Room: Gender: Male Full Stack Php Developer: : 1965 Requested By: Irwin Whalen Order Number: [id number] Ashley MD: Tangela Batista M.D. Measurements Intervals [place] Rate: 92 P: 61 ND: 171 QRS: -5 QRSD: 94 T: 69 QT: 364 QTc: 451 Interpretive Statements SINUS RHYTHM NONSPECIFIC T-WAVE ABNORMALITY Compared to ECG 02/04/2022 21:28:33 No significant changes Electronically Signed On 08-29-2022 9:41:41 CONTENT COORDINATOR by Tangela Batista M.D. [id number] f
[2022-08-29 08:47] VITALS: BP 173/108; PULSE 97; RESP 16; TEMP 36.9; O2SAT 96
--- NOTE | 2022-08-29 08:50 | XRR_ITS ---
PROCEDURE INFORMATION: Exam: XR Chest Exam date and time: 08/29/2022 9:46 AM Age: 57 years old Clinical indication: Pain; Chest pressure; Additional info: Chest discomfort TECHNIQUE: Imaging protocol: Radiologic exam of the chest. Views: 2 views. COMPARISON: CT chest con [id number] 02/15/2022 9:43 AM FINDINGS: Lungs: Unremarkable. No consolidation. Pleural spaces: Unremarkable. No pleural effusion. No pneumothorax. Heart/Mediastinum: Unremarkable. No cardiomegaly. Bones/joints: Unremarkable. XR/XR chest 2V* [id number] IMPRESSION: No acute findings.
--- NOTE | 2022-08-29 08:50 | CTR_ITS ---
PROCEDURE INFORMATION: Exam: CT Head Without Contrast Exam date and time: 08/29/2022 10:39 AM Age: 57 years old Clinical indication: Pain; Headache not specified; Additional info: Headache x 3 days, HX stroke TECHNIQUE: Imaging protocol: Computed tomography of the head without contrast. Radiation optimization: All CT scans at this facility use at least one of these dose optimization techniques: automated exposure control; mA and/or kV adjustment per patient size (includes targeted exams where dose is matched to clinical indication); or iterative reconstruction. COMPARISON: CT head wo con* [id number] 12/28/2018 12:58 PM RADIATION DOSE METRICS: Total DLP (mGy-cm): 1050.38 FINDINGS: Brain: Normal. No hemorrhage. Unremarkable white matter. No mass effect. Cerebral ventricles: No ventriculomegaly. Paranasal sinuses: Visualized sinuses are unremarkable. No fluid levels. Mastoid air cells: Visualized mastoid air cells are well aerated. Bones/joints: Unremarkable. No acute fracture. Soft tissues: Unremarkable. CT/CT head wo con* [id number] IMPRESSION: No acute intracranial abnormality.
--- NOTE | 2022-08-29 08:52 | ED_ITS ---
HPI - General Adult General: Chief complaint: General Medical Stated complaint: low bp, headache Time Seen by Provider: 08/29/22 08:47 History of Present Illness: 57-year-old male presents with multiple complaints. Patient reports he has had a headache for 3 days. Patient reports that this morning he took his blood pressure at home and it read low. Patient reports he has a history of strokes and cardiac problems. He also has some chest tightness. Patient has a history of COPD and is on multiple inhalers. He denies any shortness of breath. No fever, chills, increasing cough. He complains of some generalized malaise and vague symptoms outside the headache. Patient reports he has not slept in 2 days because of the headache. Associated symptoms: Reports malaise; Deny chest pain, dyspnea, headache(s), nausea, rash, palpitations or vomiting Review of Systems Const: Reports: fatigue and malaise; Denies: fever(s) or chills Eyes: Denies: change in vision or blurry vision ENMT: Denies: throat pain or ear or mastoid pain Card: Denies: chest pain, palpitations or irregular heart rhythm Resp: Reports: chest congestion; Denies: dyspnea GI: Denies: abdominal pain, nausea or vomiting : Denies: flank pain, difficulty urinating or dysuria Musc: Denies: neck pain or back pain Skin/Breast: Denies: rash or pruritus Neuro: Denies: headache(s) or numbness in extremities Psych: Denies: anxiety or depression PFSH ED 2 PFSH: Medical History Abnormal stress test Chest pain Depression DM neuropathy, painful DM w/o complication type II, uncontrolled HTN (hypertension), benign Hyperlipemia, mixed Hypertension Lupus He reports history of lupus diagnosed by Dr. Cortes, though there is no record of this. Obstructive sleep apnea Psychiatric care Raynaud's phenomenon Unstable angina Surgical History History of back surgery Family History Other Lupus Social History (Updated 07/05/22 @ 12:11 by Mitul Roach LPN) Smoking and tobacco status: former smoker Quit status (tobacco): has tried quititng Number of times tried to quit tobacco: 5 Second hand smoke exposure: No Smoking risk assessment/counseling performed?: No Alcohol intake: former Year of sobriety/quit date alcohol: 2020 Desire information about alcohol rehabilitation?: No Counseling given: No Desire information about substance/drug rehabilitation?: No Counseling given: No Physical Exam Const: COMMON NORMALS: no acute distress, patient oriented x3 and alert HENMT: COMMON NORMALS: hearing grossly normal bilaterally and moist oral mucous membranes Chest: COMMONS NORMALS: normal inspection of the chest Resp: COMMON NORMALS: normal respiratory effort, No use of accessory muscles and clear to auscultation bilaterally AUSCULTATION: clear to auscultation bilaterally Cardio: COMMON NORMALS: regular rate and regular rhythm RATE: regular rate RHYTHM: regular rhythm GI: COMMON NORMALS: Soft to palpation and non-tender PALPATION: Yes Soft to palpation Extremity: COMMON NORMALS: normal to inspection and full ROM Neuro: COMMON NORMALS: patient oriented x3, CN's II-XII intact bilaterally, moves all extremities, no focal motor deficits, no sensory deficits noted and gait normal SENSORIUM/ORIENTATION: Yes alert Psych: COMMON NORMALS: mental status grossly normal, cooperative, normal affect and speech normal SPEECH: Yes normal speech Skin: COMMON NORMALS: no rashes or lesions noted and turgor normal GENERAL SKIN EXAM: no rashes or lesions noted and turgor normal Course Vital Signs: Vital signs: Vital Signs Temperature 98.5 F 08/29/22 08:47 Pulse Rate 97 08/29/22 08:47 Respiratory Rate 16 08/29/22 08:47 Blood Pressure 187/83 08/29/22 12:42 Pulse Oximetry 96 08/29/22 08:47 Oxygen Delivery Me thod 08/29/22 08:47 [facility] - General Adult Medical Decision Making Patient with no acute findings on physical exam. He does have a slight elevation of white count. His symptoms are consistent with enterovirus and rhinovirus. Discussed with him he has a viral syndrome. Discussed with him supportive care. Patient should follow-up with his primary care provider in a couple days if his symptoms or not improving. Patient stable and discharged home Lab Data : 08/29/22 09:00 08/29/22 09:00 Radiology Impressions Chest X-Ray 08/29/22 08:50 IMPRESSION: No acute findings. Head CT 08/29/22 08:50 IMPRESSION: No acute intracranial abnormality. Laboratory Results WBC 11.9 10^3/uL (4.0-10.0) H 08/29/22 09:00 RBC 4.76 10^6/uL (4.1-5.3) 08/29/22 09:00 Hgb 13.7 g/dL (11.7-16.6) 08/29/22 09:00 Hct 41.6 % (42.0-52.0) L 08/29/22 09:00 MCV 87.4 fl (80-94) 08/29/22 09:00 MCH 28.8 pg (28.0-34.0) 08/29/22 09:00 MCHC 32.9 g/dL (30.0-36.0) 08/29/22 09:00 RDW 13.1 % (12.1-15.1) 08/29/22 09:00 Plt Count 204 10^3/cmm (130-400) 08/29/22 09:00 MPV 10.4 fL (7.4-10.4) 08/29/22 09:00 Neut % (Auto) 77.7 % 08/29/22 09:00 Lymph % (Auto) 14.4 % 08/29/22 09:00 Dewitt % (Auto) 6.0 % 08/29/22 09:00 Eos % (Auto) 1.0 % 08/29/22 09:00 Baso % (Auto) 0.3 % 08/29/22 09:00 Neut # (Auto) 9.23 10^3/uL (1.8-7.7) H 08/29/22 09:00 Lymph # (Auto) 1.7 10^3/uL (0.8-4.8) 08/29/22 09:00 Dewitt # (Auto) 0.7 10^3/uL (0.2-0.9) 08/29/22 09:00 Eos # (Auto) 0.1 10^3/uL (0.0-0.8) 08/29/22 09:00 Baso # (Auto) 0.0 10^3/uL (0.0-0.1) 08/29/22 09:00 Nucleated RBC % (auto) 0 % 08/29/22 09:00 Nucleated RBCs # 0.0 /100WBC 08/29/22 09:00 Sodium 135 mmol/L (136-145) L 08/29/22 09:00 Potassium 4.0 mmol/L (3.5-5.1) 08/29/22 09:00 Chloride 95 mmol/L (98-107) L 08/29/22 09:00 Carbon Dioxide 28 mmol/L (22-29) 08/29/22 09:00 Anion Gap 16.0 (5-19) 08/29/22 09:00 BUN 15 mg/dL (6-20) 08/29/22 09:00 Creatinine 0.8 mg/dL (0.7-1.2) 08/29/22 09:00 GFR Calculation 100.4 mL/min (90-130) 08/29/22 09:00 Glucose 278 mg/dL (65-115) H 08/29/22 09:00 Calculated Osmolality 291 mOsm/kg (285-295) 08/29/22 09:00 Calcium 9.7 mg/dL (8.5-10.5) 08/29/22 09:00 Magnesium 1.4 mg/dL (1.7-2.3) L 08/29/22 09:00 Total Bilirubin 0.6 mg/dL (0.15-1.2) 08/29/22 09:00 AST 12 U/L (0-40) 08/29/22 09:00 ALT 24 U/L (0-41) 08/29/22 09:00 Alkaline Phosphatase 74 U/L (40-130) 08/29/22 09:00 C-Reactive Protein 44.2 mg/L (0.0-4.9) H 08/29/22 09:00 Total Protein 7.4 g/dL (6.6-8.7) 08/29/22 09:00 Albumin 4.5 g/dL (3.5-5.2) 08/29/22 09:00 Globulin 2.9 g/dL (1.3-4.6) 08/29/22 09:00 Procalcitonin 0.04 ng/mL (0-0.5) 08/29/22 09:00 Urine Color Straw (Yellow) 08/29/22 10:23 Urine Appearance Clear (CLEAR) 08/29/22 10:23 Urine pH 7 (5-7) 08/29/22 10:23 Ur Specific [place] 1.010 (1.005-1.030) 08/29/22 10:23 Urine Protein Trace (Negative) 08/29/22 10:23 Urine Glucose (UA) 4+ (Normal) H 08/29/22 10:23 Urine Ketones 1+ (Negative) H 08/29/22 10:23 Urine Blood Neg (Negative) 08/29/22 10:23 Urine Nitrate Negative (Negative) 08/29/22 10:23 Urine Bilirubin Neg (Negative) 08/29/22 10:23 Urine Urobilinogen Norm mg/dL (Negative) 08/29/22 10:23 Ur Leukocyte Esterase Negative (Negative) 08/29/22 10:23 Urine RBC None /hpf (0-2) 08/29/22 10:23 Urine WBC Rare /hpf (0-5) 08/29/22 10:23 Ur Squamous Epith Cells None /hpf (0-5) 08/29/22 10:23 Amorphous Sediment Not Reportable 08/29/22 10:23 Urine Bacteria None /hpf (NONE) 08/29/22 10:23 Urine Mucus Trace /hpf 08/29/22 10:23 Nasal Influ A H1 2008 PCR Not detected (NOT DETECT) 08/29/22 09:07 Adenovirus (PCR) Not detected (NOT DETECT) 08/29/22 09:07 C. pneumoniae DNA (PCR) Not detected (NOT DETECT) 08/29/22 09:07 Coronavirus 229E (PCR) Not detected (NOT DETECT) 08/29/22 09:07 Human Metapneumovir PCR Not detected (NOT DETECT) 08/29/22 09:07 Influenza A (H1) PCR Not detected (NOT DETECT) 08/29/22 09:07 Influenza A (H3) PCR Not detected (NOT DETECT) 08/29/22 09:07 Influenza Type A (PCR) Not detected (NOT DETECT) 08/29/22 09:07 Influenza Type B (PCR) Not detected (NOT DETECT) 08/29/22 09:07 M. pneumoniae (PCR) Not detected (NOT DETECT) 08/29/22 09:07 Parainfluenza 1 (PCR) Not detected (NOT DETECT) 08/29/22 09:07 Parainfluenza 2 (PCR) Not detected (NOT DETECT) 08/29/22 09:07 Parainfluenza 3 (PCR) Not detected (NOT DETECT) 08/29/22 09:07 Parainfluenza 4 (PCR) Not detected (NOT DETECT) 08/29/22 09:07 RSV Type A (PCR) Not detected (NOT DETECT) 08/29/22 09:07 RSV Type B (PCR) Not detected (NOT DETECT) 08/29/22 09:07 Entero/Rhino (PCR) Detected (NOT DETECT) A 08/29/22 09:07 SARS-CoV-2 (PCR) Not detected (NOT DETECT) 08/29/22 09:07 Discharge Plan Discharge Patient Disposition: Home Clinical Impression: Rhinovirus infection Condition: Stable Prescriptions: No Action (DME) pen needle, diabetic [Comfort EZ Pen [place]] 29 gauge x 1/2 needle See Rx Instructions .Route Qty: 100 1RF Rx Instructions: As directed albuterol sulfate [ProAir HFA] 90 mcg/actuation HFA aerosol inhaler 2 puff inhalation Q6H PRN (Reason: shortness of breath or wheezing) Qty: 6.7 0RF fluticasone propion-salmeterol [Advair Diskus] 100-50 mcg/dose blister with device 1 inh inhalation BID trazodone 100 mg tablet 200 mg PO BEDTIME Qty: 60 2RF budesonide-formoterol [Symbicort] 80-4.5 mcg/actuation HFA aerosol inhaler 2 puff inhalation BID Qty: 10.2 3RF glipizide 5 mg tablet extended release 24 hr 5 mg PO QAM amlodipine 10 mg tablet 10 mg PO QAM metformin 1,000 mg tablet 1,000 mg PO BID lisinopril 40 mg tablet 40 mg PO QAM insulin glargine [Lantus Solostar U-100 Insulin] 100 unit/mL (3 mL) insulin pen 40 unit SUBCUT BEDTIME ropinirole 4 mg tablet 8 mg PO BEDTIME metoprolol tartrate 100 mg tablet 100 mg PO QAM atorvastatin 40 mg Tablet 40 mg PO BEDTIME Qty: 90 0RF nitroglycerin 0.4 mg Tablet, Sublingual 0.4 mg sublingual Q5M PRN (Reason: Chest Pain) Qty: 20 0RF Victoza 2-Matthew 0.6 mg/0.1 mL (18 mg/3 mL) pen injector 1.8 mg SUBCUT BEDTIME Vitamin C 500 mg Tablet 500 mg PO DAILY PRN (Reason: unknown) isosorbide mononitrate 30 mg tablet extended release 24 hr 30 mg PO BEDTIME gabapentin 800 mg tablet See Rx Instructions .ROUTE .COMPLEX Rx Instructions: 800mg po qam and 1600mg at bedtime omeprazole 20 mg capsule,delayed release(DR/EC) 20 mg PO BEDTIME aspirin 81 mg capsule 81 mg PO BEDTIME venlafaxine 75 mg Capsule,Extended Release 24hr 225 mg PO DAILY 30 Days Qty: 90 1RF Discharge Orders: Discharge ED (Routine); Ordered 08/29/22 Ordered By: Irwin Whalen Referrals: Luh Castro FNP [Primary Care Provider] - Discharge Diet: Usual diet Discharge Activity: Resume usual activity Patient Instructions: Opioid Safety, Pain Management, Viral Syndrome - Adult Activity Restrictions/Additional Instructions: Please have your blood pressure cuff checked to ensure that is reading properly. Continue take your home blood pressure medication as prescribed. Follow-up with your primary care provider in 3 to 4 days for recheck of your symptoms. Be sure to drink plenty of fluids. Return to the ER as needed Coding Level of Care Code ED Team [employer] Sales Associate for Mackenzie Fwaxel Exam Comprehensive
[2022-08-29] MEDS: sodium chloride 0.9% 1,000 ML 999 ML IV (09:05)
[2022-08-29 09:12] LABS: Basophils % 0.3 %; Eosinophils # 0.1 10^3/uL (0.0-0.8); Hematocrit 41.6 % (42.0-52.0); Hemoglobin 13.7 g/dL (11.7-16.6); Lymphocytes # 1.7 10^3/uL (0.8-4.8); Lymphocytes % 14.4 %; Mean Corpuscular HGB Conc 32.9 g/dL (30.0-36.0); Mean Corpuscular Hemoglobin 28.8 pg (28.0-34.0); Mean Corpuscular Volume 87.4 fl (80-94); Mean Platelet Volume 10.4 fL (7.4-10.4); Monocytes # 0.7 10^3/uL (0.2-0.9); Neutrophils # 9.23 10^3/uL (1.8-7.7); Neutrophils % 77.7 %; Nucleated Red Blood Cells % 0 %; Platelet Count 204 10^3/cmm (130-400); Red Blood Count 4.76 10^6/uL (4.1-5.3); Red Cell Distribution Width 13.1 % (12.1-15.1); White Blood Count 11.9 10^3/uL (4.0-10.0)
[2022-08-29 09:31] LABS: Alanine Aminotransferase 24 U/L (0-41); Albumin Level 4.5 g/dL (3.5-5.2); Alkaline Phosphatase 74 U/L (40-130); Aspartate Amino Transferase 12 U/L (0-40); Blood Urea Nitrogen 15 mg/dL (6-20); C Reactive Protein 44.2 mg/L (0.0-4.9); Calcium 9.7 mg/dL (8.5-10.5); Carbon Dioxide 28 mmol/L (22-29); Chloride 95 mmol/L (98-107); Globulin 2.9 g/dL (1.3-4.6); Glomerular Filtration Rate 100.4 mL/min (90-130); Glucose 278 mg/dL (65-115); Magnesium 1.4 mg/dL (1.7-2.3); Osmolality Calculated 291 mOsm/kg (285-295); Sodium 135 mmol/L (136-145); Total Bilirubin 0.6 mg/dL (0.15-1.2); Total Protein 7.4 g/dL (6.6-8.7)
[2022-08-29 09:38] LABS: Procalcitonin 0.04 ng/mL (0-0.5)
[2022-08-29 10:23] VITALS: BP 187/101
[2022-08-29 10:52] LABS: Adenovirus Not Detected (NOT DETECT); Chlamydia Pneumoniae Not Detected (NOT DETECT); Coronavirus 229E,HKU1,NL63,OC4 Not Detected (NOT DETECT); Human Metapneumovirus Not Detected (NOT DETECT); Human Rhinovirus/Enterovirus Detected (NOT DETECT); Influenza A Not Detected (NOT DETECT); Influenza A H1 Not Detected (NOT DETECT); Influenza A H1-2009 Not Detected (NOT DETECT); Influenza A H3 Not Detected (NOT DETECT); Influenza B Not Detected (NOT DETECT); Mycoplasma Pneumoniae Not Detected (NOT DETECT); Parainfluenza Virus Type 1 Not Detected (NOT DETECT); Parainfluenza Virus Type 2 Not Detected (NOT DETECT); Parainfluenza Virus Type 3 Not Detected (NOT DETECT); Parainfluenza Virus Type 4 Not Detected (NOT DETECT); Respiratory Syncytial Virus A Not Detected (NOT DETECT); Respiratory Syncytial Virus B Not Detected (NOT DETECT); SARS-COV-2 Not Detected (NOT DETECT)
[2022-08-29 10:56] LABS: Glucose Urine UA 4+ (Normal); Ketones Urine 1+ (Negative); Protein Urine Trace (Negative); Urine Appearance Clear (CLEAR); Urine Color Straw (Yellow); pH Urine 7 (5-7)
[2022-08-29 10:57] LABS: Add Urine Microscopic? YES; Bilirubin Urine Neg (Negative); Blood Urine Neg (Negative); Leukocyte Esterase Urine Negative (Negative); Nitrate Urine Negative (Negative); Urobilinogen Urine Norm (Negative)
[2022-08-29 10:59] LABS: Add Urine Culture? No; Mucus Urine TRACE /hpf; WBC Urine RARE /hpf (0-5)
[2022-08-29 11:44] VITALS: BP 193/100
[2022-08-29 12:42] VITALS: BP 187/83
[2022-08-29] MEDS: ketorolac 30 mg/mL INJ 15 MG IVP (12:42)
== END 2022-08-29 12:44 | disposition home or self-care (01) ==
PROVIDERS: Emergency Provider Student in an Organized Health Care Education/Training Program; PCP Nurse Practitioner Family
DX: B34.8 Other viral infections of unspecified site (principal); Z79.84 Long term (current) use of oral hypoglycemic drugs; Z79.4 Long term (current) use of insulin; Z79.82 Long term (current) use of aspirin
CPT/HCPCS: 70450; 71046; 80053; 81001; 83735; 84145; 85025; 86140; 87486; 87581; 87633; 93005; 96361; 96374; 99285; J1885; J7030

== ENCOUNTER → 2024-01-16 09:43 | Outpatient (BNVA) | payer MEDICAID, SELFPAY | PROVIDERS: PCP Nurse Practitioner Family; Visit Provider Internal Medicine | DX: E11.65 Type 2 diabetes mellitus with hyperglycemia (principal); E78.2 Mixed hyperlipidemia; E11.40 Type 2 diabetes mellitus with diabetic neuropathy, unspecified; I25.10 Atherosclerotic heart disease of native coronary artery without angina pectoris; Z86.73 Personal history of transient ischemic attack (TIA), and cerebral infarction without residual deficits; Z79.4 Long term (current) use of insulin; Z79.84 Long term (current) use of oral hypoglycemic drugs | CPT/HCPCS: 99204 ==

== ENCOUNTER → 2024-02-01 11:54 | Outpatient (BNVA) | payer MEDICAID, SELFPAY | PROVIDERS: PCP Nurse Practitioner Family; Visit Provider Internal Medicine | DX: E11.65 Type 2 diabetes mellitus with hyperglycemia (principal); E78.2 Mixed hyperlipidemia; Z79.84 Long term (current) use of oral hypoglycemic drugs; Z79.4 Long term (current) use of insulin | CPT/HCPCS: 99214 ==

== ENCOUNTER 2024-05-09 17:50 | Emergency (ER) | payer MEDICAID, SELFPAY ==
[2024-05-09 18:11] VITALS: BP 179/75; PULSE 88; RESP 20; TEMP 36.6; O2SAT 96
--- NOTE | 2024-05-09 18:59 | ED_ITS ---
HPI - Male Genitourinary General: Chief complaint: Urogenital-Male Stated complaint: swollen genitalia Time Seen by Provider: 05/09/24 18:52 History of Present Illness: 59-year-old male patient comes in today with some swelling and redness to the left inguinal area. Patient reports about a week ago he had gone walking in the [place] and got irritated in the area of swelling at this time. Patient reports last night he had increased swelling and tenderness which made it difficult for him to sleep. This afternoon he does feel somewhat better but continues to have tenderness. Patient has a history of diabetes, alcoholism, COPD, high blood pressure. Review of Systems General: Reports: 10 or more systems reviewed and unremarkable except in HPI and below PFSH ED PFSH: Medical History Depression Unstable angina Abnormal stress test Chest pain Hypertension Obstructive sleep apnea Raynaud's phenomenon Lupus He reports history of lupus diagnosed by Dr. Cortes, though there is no record of this. Psychiatric care Depression DM neuropathy, painful Hyperlipemia, mixed HTN (hypertension), benign DM w/o complication type II, uncontrolled Surgical History History of back surgery Family History Other Lupus Social History Smoking and tobacco/nicotine status: former use of tobacco/nicotine Quit status (tobacco/nicotine): has tried quititng Number of times tried to quit tobacco: 5 Second hand smoke exposure: No Alcohol intake: former Year of sobriety/quit date alcohol: 2020 Substance/Drug Use: never Physical Exam Const: COMMON NORMALS: alert HENMT: COMMON NORMALS: normocephalic HEAD & SCALP: normocephalic Neck/C-Spine: COMMON NORMALS: full ROM Resp: COMMON NORMALS: normal respiratory effort Cardio: COMMON NORMALS: regular rate RATE: regular rate Extremity: COMMON NORMALS: normal to inspection Neuro: SENSORIUM/ORIENTATION: Yes alert Skin: NARRATIVE SKIN EXAM: Draining area of induration to the left inguinal area. Procedures Abscess I/D Site: other (Left inguinal) Side (if applicable): left Local Anesthetic: lidocaine 2% Amount of anesthesia used (mL): 3 Technique: incised with #11 blade Amount of fluid expressed (mL): 2 Irrigation: Yes Packing used?: none Course Vital Signs: Vital signs: Vital Signs Temperature 97.8 F 05/09/24 18:11 Pulse Rate 88 05/09/24 18:11 Respiratory Rate 20 H 05/09/24 18:11 Blood Pressure 179/75 05/09/24 18:11 Pulse Oximetry 96 05/09/24 18:11 Oxygen Delivery Me thod Room Air 05/09/24 18:11 MDM - Male Medical Decision Making Patient comes in today for a sore swollen area to the left inguinal area. On exam patient has a 3 cm area of induration with a central lesion draining purulent fluid. Differential diagnosis includes not limited to hidradenitis suppurative, abscess, cellulitis. I&D was performed with drainage of about 2 mL of purulent fluid. Patient did report relief of discomfort. Patient will be placed on clindamycin 300 mg 4 times a day for the next 7 days. Patient was recommended to follow-up in 3 days with primary care return to ED for worsening symptoms. No radiology studies performed this visit Discharge Plan Discharge Patient Disposition: Home Clinical Impression: Abscess of groin, left Condition: Stable Prescriptions: New clindamycin HCl 300 mg capsule 300 mg PO Q6H 7 Days Qty: 28 0RF No Action (DME) pen needle, diabetic [Comfort EZ Pen [place]] 29 gauge x 1/2 needle See Rx Instructions .Route Qty: 100 1RF Rx Instructions: As directed albuterol sulfate [ProAir HFA] 90 mcg/actuation HFA aerosol inhaler 2 puff inhalation Q6H PRN (Reason: shortness of breath or wheezing) Qty: 6.7 0RF fluticasone propion-salmeterol [Advair Diskus] 100-50 mcg/dose blister with device 1 inh inhalation BID Mounjaro 2.5 mg/0.5 mL pen injector 2.5 mg SUBCUT Q7D 30 Days Qty: 2 0RF Rx Instructions: 2.5mg weekly x one month Mounjaro 5 mg/0.5 mL pen injector 5 mg SUBCUT Q7D 30 Days Qty: 2 0RF Rx Instructions: 5mg weekly x one month Mounjaro 7.5 mg/0.5 mL pen injector 7.5 mg SUBCUT Q7D Qty: 2 1RF Rx Instructions: 7.5mg weekly budesonide-formoterol [Symbicort] 80-4.5 mcg/actuation HFA aerosol inhaler 2 puff inhalation BID Qty: 10.2 3RF hydrocodone-acetaminophen 10-325 mg tablet 2 tab PO .4-6 hours PRN bupropion HCl [Wellbutrin XL] 150 mg tablet extended release 24 hr 150 mg PO QAM Qty: 30 2RF venlafaxine 75 mg capsule,extended release 24hr 225 mg PO DAILY 30 Days Qty: 90 2RF omeprazole 20 mg capsule,delayed release(DR/EC) 20 mg PO BEDTIME Qty: 30 3RF trazodone 100 mg tablet 200 mg PO BEDTIME Qty: 60 2RF amlodipine 10 mg tablet 10 mg PO QAM metformin 1,000 mg tablet 1,000 mg PO BID lisinopril 40 mg tablet 40 mg PO QAM insulin glargine [Lantus Solostar U-100 Insulin] 100 unit/mL (3 mL) insulin pen 40 unit SUBCUT BEDTIME ropinirole 4 mg tablet 8 mg PO BEDTIME metoprolol tartrate 100 mg tablet 100 mg PO QAM atorvastatin 40 mg Tablet 40 mg PO BEDTIME Qty: 90 0RF nitroglycerin 0.4 mg Tablet, Sublingual 0.4 mg sublingual Q5M PRN (Reason: Chest Pain) Qty: 20 0RF Vitamin C 500 mg Tablet 500 mg PO DAILY PRN (Reason: unknown) isosorbide mononitrate 30 mg tablet extended release 24 hr 30 mg PO BEDTIME gabapentin 800 mg tablet See Rx Instructions .ROUTE .COMPLEX Rx Instructions: 800mg po qam and 1600mg at bedtime aspirin 81 mg capsule 81 mg PO BEDTIME Discharge Orders: Discharge ED (Routine); Ordered 05/09/24 Ordered By: Parish Fonseca Referrals: Luh Castro FNP [Primary Care Provider] - Discharge Diet: Usual diet Discharge Activity: Increase activity as tolerated Patient Instructions: Abscess Incision and Drainage (DC) Activity Restrictions/Additional Instructions: Take antibiotic as directed. 1 capsule 300 mg clindamycin 4 times a day for 7 days. Drink plenty of water with medication. Follow-up with primary care in 3 to 5 days for recheck. Return to ED for worsening symptoms such as fever greater than 100.4, inability to hold down fluids, or worsening redness and swelling of the groin. Coding Level of Care Code ED [employer] Agent for Mackenzie López
[2024-05-09] MEDS: clindamycin 150 mg Capsule 300 MG PO (19:15)
[2024-05-09 19:32] VITALS: BP 168/72; PULSE 86; RESP 16; TEMP 36.6; O2SAT 98
== END 2024-05-09 19:34 | disposition home or self-care (01) ==
PROVIDERS: Emergency Provider Nurse Practitioner Family; PCP Nurse Practitioner Family
DX: L02.214 Cutaneous abscess of groin (principal); Z79.85 Long-term (current) use of injectable non-insulin antidiabetic drugs; Z79.82 Long term (current) use of aspirin; Z79.4 Long term (current) use of insulin; Z79.84 Long term (current) use of oral hypoglycemic drugs; I10 Essential (primary) hypertension; M32.9 Systemic lupus erythematosus, unspecified; E11.40 Type 2 diabetes mellitus with diabetic neuropathy, unspecified; E78.2 Mixed hyperlipidemia; Z87.891 Personal history of nicotine dependence
CPT/HCPCS: 10060; 99283

== ENCOUNTER 2024-05-10 11:00 | Outpatient (CLI) | payer MEDICAID, SELFPAY ==
[2024-05-10 11:58] LABS: Creatinine Urine, Random 96 mg/dL (39-259); Microalbumin Random Urine 15 ug/dL (0-20)
[2024-05-10 12:05] LABS: Alanine Aminotransferase 24 U/L (0-41); Albumin Level 3.9 g/dL (3.5-5.2); Alkaline Phosphatase 100 U/L (40-130); Anion Gap 20.4 (5-19); Aspartate Amino Transferase 21 U/L (0-40); Blood Urea Nitrogen 22 mg/dL (6-20); Calcium 8.8 mg/dL (8.5-10.5); Carbon Dioxide 21 mmol/L (22-29); Chloride 99 mmol/L (98-107); Cholesterol 132 mg/dL (0-200); Globulin 3.2 g/dL (1.3-4.6); Glucose 382 mg/dL (65-115); HDL Cholesterol 33 mg/dL (60-100); LDL Cholesterol Calculated 23 mg/dL (50-129); Osmolality Calculated 301 mOsm/kg (285-295); Potassium 4.4 mmol/L (3.5-5.1); Sodium 136 mmol/L (136-145); Total Bilirubin 0.4 mg/dL (0.15-1.2); Total Protein 7.1 g/dL (6.6-8.7); Triglycerides 379 mg/dL (0-150)
[2024-05-10 12:07] LABS: Microalbum Creatinine Ratio Ur 156 mg/dL (0-20)
[2024-05-10 12:08] LABS: Estmated Average Glucose 315; Hemoglobin A1C 12.6 % (4.0-6.0)
== END 2024-05-10 11:01 | disposition home or self-care (01) ==
LOC: LAB 11:03
PROVIDERS: PCP Nurse Practitioner Family; Visit Provider Internal Medicine
DX: E11.65 Type 2 diabetes mellitus with hyperglycemia (principal); E78.2 Mixed hyperlipidemia
CPT/HCPCS: 36415; 80053; 80061; 82044; 83036

== ENCOUNTER → 2024-05-14 09:52 | Outpatient (BNVA) | payer MEDICAID, SELFPAY | PROVIDERS: PCP Nurse Practitioner Family; Visit Provider Internal Medicine | DX: E11.65 Type 2 diabetes mellitus with hyperglycemia (principal); E78.2 Mixed hyperlipidemia; Z79.4 Long term (current) use of insulin; Z79.84 Long term (current) use of oral hypoglycemic drugs; Z79.85 Long-term (current) use of injectable non-insulin antidiabetic drugs | CPT/HCPCS: 99214 ==

== ENCOUNTER 2024-06-20 13:46 | Outpatient (CLI) | payer MEDICAID, SELFPAY ==
[2024-05-14 13:51] VITALS: BP 133/82; BMI 41.1
[2024-06-20 14:03] VITALS: PULSE 78; RESP 18; O2SAT 96
[2024-06-20] MEDS: albuterol 2.5 mg/3 mL Neb INHALATION (14:03)
[2024-06-20 14:07] VITALS: PULSE 85
== END 2024-06-20 13:47 | disposition home or self-care (01) ==
LOC: RT 13:47
PROVIDERS: PCP Nurse Practitioner Family; Visit Provider Nurse Practitioner Family
DX: J44.9 Chronic obstructive pulmonary disease, unspecified (principal)
CPT/HCPCS: 94060; 94726; 94729

== ENCOUNTER → 2024-07-13 10:26 | Outpatient (BNVA) | payer MEDICAID, SELFPAY ==
[2024-05-14 13:51] VITALS: BP 133/82; BMI 41.1
== END ==
PROVIDERS: PCP Nurse Practitioner Family; Visit Provider Internal Medicine
DX: E78.2 Mixed hyperlipidemia (principal); E11.65 Type 2 diabetes mellitus with hyperglycemia; Z79.4 Long term (current) use of insulin; Z79.85 Long-term (current) use of injectable non-insulin antidiabetic drugs; Z79.84 Long term (current) use of oral hypoglycemic drugs
CPT/HCPCS: 36415; 80053; 80061; 82044; 83036; 83721; 99214

== ENCOUNTER 2024-10-11 12:01 | Outpatient (CLI) | payer MEDICAID, SELFPAY ==
[2024-07-24 13:57] VITALS: BP 161/88; BMI 41.4
[2024-10-11 13:03] LABS: Creatinine Urine, Random 112 mg/dL (39-259); Microalbum Creatinine Ratio Ur 321 mg/dL (0-20); Microalbumin Random Urine 36 ug/dL (0-20)
[2024-10-11 13:04] LABS: Alanine Aminotransferase 20 U/L (0-41); Albumin Level 3.8 g/dL (3.5-5.2); Alkaline Phosphatase 65 U/L (40-130); Anion Gap 11.3 (5-19); Aspartate Amino Transferase 13 U/L (0-40); Blood Urea Nitrogen 13 mg/dL (6-20); Calcium 9.4 mg/dL (8.5-10.5); Carbon Dioxide 31 mmol/L (22-29); Chloride 97 mmol/L (98-107); Chol HDL Ratio 3.45 mg/dL (1.0-5.00); Cholesterol 114 mg/dL (0-200); Globulin 3.1 g/dL (1.3-4.6); Glomerular Filtration Rate 99.6 mL/min (90-130); Glucose 276 mg/dL (65-115); HDL Cholesterol 33 mg/dL (60-100); LDL Cholesterol Calculated 51 mg/dL (50-129); LDL HDL Ratio 1.55 RATIO (0.00-3.22); Osmolality Calculated 290 mOsm/kg (285-295); Potassium 4.3 mmol/L (3.5-5.1); Sodium 135 mmol/L (136-145); Total Bilirubin 0.3 mg/dL (0.15-1.2); Total Protein 6.9 g/dL (6.6-8.7); Triglycerides 148 mg/dL (0-150)
[2024-10-11 13:36] LABS: Estmated Average Glucose 303; Hemoglobin A1C 12.2 % (4.0-6.0)
== END 2024-10-11 12:02 | disposition home or self-care (01) ==
LOC: LAB 12:03
PROVIDERS: PCP Nurse Practitioner Family; Visit Provider Internal Medicine
DX: E78.2 Mixed hyperlipidemia (principal); E11.65 Type 2 diabetes mellitus with hyperglycemia
CPT/HCPCS: 36415; 80053; 80061; 82044; 83036

== ENCOUNTER → 2024-10-25 11:44 | Outpatient (BNVA) | payer MEDICAID, SELFPAY ==
[2024-10-18 13:03] VITALS: BP 125/88; BMI 40.0
== END ==
PROVIDERS: PCP Nurse Practitioner Family; Visit Provider Internal Medicine
DX: E11.40 Type 2 diabetes mellitus with diabetic neuropathy, unspecified; Z79.4 Long term (current) use of insulin; Z79.84 Long term (current) use of oral hypoglycemic drugs
CPT/HCPCS: 95251; 99214

== ENCOUNTER 2025-01-16 09:46 | Outpatient (CLI) | payer MEDICAID, SELFPAY ==
[2024-10-18 13:03] VITALS: BP 125/88; BMI 40.0
[2025-01-16 10:40] LABS: Estmated Average Glucose 220; Hemoglobin A1C 9.3 % (4.0-6.0)
[2025-01-16 10:51] LABS: Alanine Aminotransferase 26 U/L (0-41); Albumin Level 4.6 g/dL (3.5-5.2); Alkaline Phosphatase 84 U/L (40-130); Anion Gap 15.8 (5-19); Aspartate Amino Transferase 17 U/L (0-40); Blood Urea Nitrogen 12 mg/dL (6-20); Calcium 9.5 mg/dL (8.5-10.5); Carbon Dioxide 31 mmol/L (22-29); Chloride 97 mmol/L (98-107); Chol HDL Ratio 3.74 mg/dL (1.0-5.00); Cholesterol 146 mg/dL (0-200); Globulin 3.2 g/dL (1.3-4.6); Glomerular Filtration Rate 99.3 mL/min (90-130); Glucose 249 mg/dL (65-115); HDL Cholesterol 39 mg/dL (60-100); LDL Cholesterol Calculated 72 mg/dL (50-129); LDL HDL Ratio 1.85 RATIO (0.00-3.22); Osmolality Calculated 298 mOsm/kg (285-295); Potassium 3.8 mmol/L (3.5-5.1); Sodium 140 mmol/L (136-145); Total Bilirubin 0.3 mg/dL (0.15-1.2); Total Protein 7.8 g/dL (6.6-8.7); Triglycerides 177 mg/dL (0-150)
[2025-01-16 11:03] LABS: Creatinine Urine, Random 195 mg/dL (39-259)
[2025-01-16 11:17] LABS: Microalbum Creatinine Ratio Ur 390 mg/dL (0-20); Microalbumin Random Urine 76 ug/dL (0-20)
== END 2025-01-16 09:47 | disposition home or self-care (01) ==
LOC: LAB 09:47
PROVIDERS: PCP Nurse Practitioner Family; Visit Provider Internal Medicine
DX: E78.2 Mixed hyperlipidemia (principal)
CPT/HCPCS: 36415; 80053; 80061; 82044; 83036

== ENCOUNTER → 2025-02-19 11:34 | Outpatient (BNVA) | payer OTHER, SELFPAY ==
[2025-01-17 10:23] VITALS: BP 157/94; BMI 39.9
== END ==
PROVIDERS: PCP Nurse Practitioner Family; Visit Provider Internal Medicine
DX: E11.40 Type 2 diabetes mellitus with diabetic neuropathy, unspecified (principal); E78.2 Mixed hyperlipidemia
CPT/HCPCS: 99214

== ENCOUNTER → 2025-05-23 11:14 | Outpatient (BNVA) | payer MEDICAID, SELFPAY ==
[2025-01-17 10:23] VITALS: BP 157/94; BMI 39.9
== END ==
PROVIDERS: PCP Nurse Practitioner Family; Visit Provider Internal Medicine
DX: E11.65 Type 2 diabetes mellitus with hyperglycemia (principal); E78.2 Mixed hyperlipidemia
CPT/HCPCS: 99214